=== PATIENT | male | born 1985 | race Caucasian/White ===

== ENCOUNTER 2020-04-23 15:54 | Emergency (ER) | payer BC, OTHER ==
[2020-04-23 16:06] VITALS: TEMP 98.4
--- NOTE | 2020-04-23 17:02 | ED ---
General Adult HPI - General Chief complaint: Upper Respiratory Infection Stated complaint: +Covid, Shaking Time Seen by Provider: 04/23/20 16:08 Source: patient, RN notes reviewed Mode of arrival: wheelchair Limitations: no limitations - History of Present Illness Initial comments: 34-year-old male presents emergency Department chief complaint of shortness of breath. Patient states he tested positive for covid 19 one week ago. He states he started symptoms a few days prior to this. Patient states that he has been having on and off fever states he was shaking with this fever earlier today which has resolved. Patient also states is very anxious because he received a phone call from the hospital stating that his father has been placed on a venti lator and is in ICU. Patient denies any abdominal plain no GI symptoms no significant chest pain or shortness of breath. - Related Data Home Medications Medication Instructions Recorded Confirmed Albuterol Inhaler (Mhu) [Ventolin 1 - 2 puff INHALATION Q6HR PRN 06/11/14 11/20/15 Inhaler] Previous Rx's Medication Instructions Recorded Azithromycin [Zithromax Z-pack (6 0 mg PO DIRECTED #6 tab 11/20/15 tabs)] Fluticasone Propionate [Flonase 1 - 2 spray EA NOSTRIL DAILY 5 11/20/15 Allergy Relief] Days ml Allergies Allergy/AdvReac Type Severity Reaction Status Date / Time amoxicillin Allergy Unknown Verified 04/23/20 16:06 Penicillins Allergy Rash/Hives Verified 04/23/20 16:06 diphenhydramine HCl AdvReac Swelling Verified 04/23/20 16:06 [From Benadryl] Review of Systems ROS Statement: Those systems with pertinent positive or pertinent negative responses have been documented in the HPI. ROS Other: All systems not noted in ROS Statement are negative. Past Medical History Past Medical History: No Reported History Additional Past Medical History / Comment(s): cellulitis History of Any Multi-Drug Resistant Organisms: None Reported Past Surgical History: Appendectomy Additional Past Surgical History / Comment(s): vericose vein stripping Past Psychological History: No Psychological Hx Reported Smoking Status: Never smoker Past Alcohol Use History: None Reported Past Drug Use History: None Reported General Exam Limitations: no limitations General appearance: alert, in no apparent distress Head exam: Present: atraumatic, normocephalic, normal inspection Eye exam: Present: normal appearance, PERRL, EOMI. Absent: scleral icterus, conjunctival injection, periorbital swelling ENT exam: Present: normal exam, normal oropharynx, mucous membranes moist Neck exam: Present: normal inspection, full ROM. Absent: tenderness, meningismus, lymphadenopathy Respiratory exam: Present: normal lung sounds bilaterally. Absent: respiratory distress, wheezes, rales, rhonchi, stridor Cardiovascular Exam: Present: regular rate, normal rhythm, normal heart sounds. Absent: systolic murmur, diastolic murmur, rubs, gallop, clicks Neurological exam: Present: alert, oriented X3, CN II-XII intact Skin exam: Present: warm, dry, intact, normal color. Absent: rash Course Vital Signs 04/23/20 04/23/20 16:03 16:47 Temperature 98.4 F Pulse Rate 89 Respiratory 16 20 Rate Blood Pressure 133/76 O2 Sat by Pulse 99 Oximetry Medical Decision Making - Medical Decision Making X-ray does not show any significant changes. Patient vitals reviewed there is no hypoxia. Patient is no signs respiratory distress we discharged in stable condition return parameters were discussed. Disposition Clinical Impression: COVID-19 Disposition: HOME SELF-CARE Condition: Stable Instructions (If sedation given, give patient instructions): Upper Respiratory Infection (ED) Additional Instructions: Please return to the Emergency Department if symptoms worsen or any other concerns. Is patient prescribed a controlled substance at d/c from ED?: No Referrals: None,Stated [Primary Care Provider] - 1-2 days Time of Disposition: 17:04
--- NOTE | 2020-04-23 17:16 | XR ---
EXAMINATION TYPE: XR chest 2V DATE OF EXAM: 04/23/2020 COMPARISON: NONE HISTORY: Cough. TECHNIQUE: Frontal and lateral views of the chest are obtained. FINDINGS: There is no focal air space opacity, pleural effusion, or pneumothorax seen. The cardiac silhouette size is within normal limits. The osseous structures are intact. IMPRESSION: No acute cardiopulmonary process.
[2020-04-23 17:37] VITALS: BP 117/97; PULSE 92; RESP 18
== END 2020-04-23 17:36 | disposition home or self-care (01) ==
LOC: EC 15:54
DX: U07.1 COVID-19 (principal); Z88.0 Allergy status to penicillin; Z88.8 Allergy status to other drugs, medicaments and biological substances; Z90.49 Acquired absence of other specified parts of digestive tract
CPT/HCPCS: 71046; 99284

== ENCOUNTER 2020-05-10 16:44 | Emergency (ER) | payer BC, OTHER ==
[2020-05-10 16:53] VITALS: BP 136/81; PULSE 87; RESP 16; TEMP 98.9
--- NOTE | 2020-05-10 17:03 | ED ---
Fever HPI - General Chief Complaint: Fever Stated Complaint: fever,headache Time Seen by Provider: 05/10/20 16:59 Source: patient Mode of arrival: ambulatory Limitations: no limitations - History of Present Illness Initial Comments: 34-year-old male presents emergency Department with a chief complaint of fever. Patient states that he was diagnosed with Covid over one month ago and already went through 14 days of quarantine. Patient states today he went to the hospital to visit his father and at the front door, he they obtain a temperature of 102 Fahrenheit. Patient states he wasn't aware that he had a fever. He denied any other complaints. States he went home right after the measured temperature of 99. States he also developed a headache due to the stress that he is currently undergoing because of is sick father. Patient states he decided to come to emergency department to be evaluated for the fever. He does not have any other complaints. - Related Data Home Medications Medication Instructions Recorded Confirmed Albuterol Inhaler (Mhu) [Ventolin 1 - 2 puff INHALATION Q6HR PRN 06/11/14 11/20/15 Inhaler] Previous Rx's Medication Instructions Recorded Azithromycin [Zithromax Z-pack (6 0 mg PO DIRECTED #6 tab 11/20/15 tabs)] Fluticasone Propionate [Flonase 1 - 2 spray EA NOSTRIL DAILY 5 11/20/15 Allergy Relief] Days ml Allergies Allergy/AdvReac Type Severity Reaction Status Date / Time amoxicillin Allergy Unknown Verified 05/10/20 16:53 Penicillins Allergy Rash/Hives Verified 05/10/20 16:53 diphenhydramine HCl AdvReac Swelling Verified 05/10/20 16:53 [From Benadryl] Review of Systems ROS Statement: Those systems with pertinent positive or pertinent negative responses have been documented in the HPI. ROS Other: All systems not noted in ROS Statement are negative. Past Medical History Past Medical History: No Reported History Additional Past Medical History / Comment(s): cellulitis History of Any Multi-Drug Resistant Organisms: None Reported Past Surgical History: Appendectomy Additional Past Surgical History / Comment(s): vericose vein stripping Past Psychological History: No Psychological Hx Reported Smoking Status: Never smoker Past Alcohol Use History: None Reported Past Drug Use History: None Reported General Exam Limitations: no limitations General appearance: alert, in no apparent distress, in distress Head exam: Present: atraumatic, normocephalic, normal inspection Eye exam: Present: normal appearance, PERRL, EOMI Pupils: Present: normal accommodation ENT exam: Present: normal exam, normal oropharynx, mucous membranes moist, TM's normal bilaterally, normal external ear exam Neck exam: Present: normal inspection, full ROM. Absent: tenderness Respiratory exam: Present: normal lung sounds bilaterally. Absent: respiratory distress Cardiovascular Exam: Present: regular rate, normal rhythm, normal heart sounds Extremities exam: Present: normal inspection, full ROM Back exam: Present: normal inspection, full ROM Neurological exam: Present: alert, oriented X3, normal gait Psychiatric exam: Present: normal affect, normal mood Skin exam: Present: warm, dry, intact, normal color Course Vital Signs 05/10/20 16:49 Temperature 98.9 F Pulse Rate 87 Respiratory 16 Rate Blood Pressure 136/81 O2 Sat by Pulse 99 Oximetry Medical Decision Making - Medical Decision Making 34-year-old male presents emergency Department with chief complaint of fever. Physical examination is unremarkable. Vital signs are stable. Patient was given Tylenol for the headache.gradual onset headache not the worst headache of his life. Return parameters discussed the patient was understanding and agreeable. Case discussed with Dr. Hernandez. Disposition Clinical Impression: Headache Disposition: HOME SELF-CARE Condition: Stable Instructions (If sedation given, give patient instructions): Acute Headache (DC) Additional Instructions: Take Tylenol or Motrin for pain relief. Follow up with the primary care physician. Return to emergency department if symptoms worsen. Is patient prescribed a controlled substance at d/c from ED?: No Referrals: None,Stated [Primary Care Provider] - 1-2 days Time of Disposition: 17:18
[2020-05-10] MEDS ORDERED: ACETAMINOPHEN TAB 500 MG TAB PO STA (17:16)
== END 2020-05-10 17:48 | disposition home or self-care (01) ==
LOC: EC 16:44
DX: R51.9 Headache, unspecified (principal); R50.9 Fever, unspecified; Z88.0 Allergy status to penicillin; Z88.8 Allergy status to other drugs, medicaments and biological substances
CPT/HCPCS: 99283

== ENCOUNTER 2020-10-01 21:07 | Emergency (ER) | payer OTHER ==
[2020-10-01 21:13] VITALS: TEMP 97.7
[2020-10-01] MEDS ORDERED: SODIUM CHLORIDE 0.9% 1,000 ML IV STA (21:14)
[2020-10-01 21:55] LABS: Basophils # (A) 0.1 k/uL (0-0.2); Basophils % (A) 1 %; Eosinophils # (A) 0.2 k/uL (0-0.7); Eosinophils % (A) 4 %; HCT 44.1 % (39.0-53.0); HGB 15.3 gm/dL (13.0-17.5); Lymphocytes # (A) 1.2 k/uL (1.0-4.8); Lymphocytes % (A) 20 %; MCH 29.9 pg (25.0-35.0); MCHC 34.8 g/dL (31.0-37.0); Mean Platelet Volume 7.2; Monocytes # (A) 0.5 k/uL (0-1.0); Monocytes % (A) 8 %; Neutrophils # (A) 3.8 k/uL (1.3-7.7); Neutrophils % (A) 66 %; Platelet Count 205 k/uL (150-450); RBC 5.12 m/uL (4.30-5.90); RDW 12.3 % (11.5-15.5); WBC 5.8 k/uL (3.8-10.6)
[2020-10-01 22:02] LABS: Partial Thromboplastin Time 23.2 sec (22.0-30.0); Prothrombin Time 10.3 sec (9.0-12.0)
--- NOTE | 2020-10-01 22:11 | ED ---
Chest Pain HPI - General Chief Complaint: Chest Pain Stated Complaint: elevated BP Time Seen by Provider: 10/01/20 21:14 Source: patient, RN notes reviewed, old records reviewed Mode of arrival: wheelchair Limitations: no limitations - History of Present Illness Initial Comments: This is a 35-year-old male with no specific medical history patient states that today he just felt a little bit more fatigued does admit to severe anxiety or increased anxiety secondary to starting a new job tomorrow his normal daily tasks. States that he was just maybe mildly increased short of breath but no significant swelling and then developed chest pains afternoon took his blood pressure was elevated slightly shower today blood pressure again was again elevated and decided to come the ER for evaluation. On arrival in the ER patient has no chest pain shortness of breath otherwise feels well does admit to mild anxiety MD Complaint: chest pain -: days(s) Onset: during rest, during exertion Pain Location: substernal Pain Radiation: none Severity: mild Severity scale (1-10): 2 Quality: aching, heaviness Consistency: constant Improves With: nothing Worsens With: nothing Context: recent illness Anginal Symptoms: nausea, dyspnea Other Symptoms: palpitations Treatments Prior to Arrival: none - Related Data Home Medications Medication Instructions Recorded Confirmed Acetaminophen Tab [Tylenol Tab] 500 mg PO Q6H PRN 10/01/20 10/01/20 Albuterol Sulfate [Ventolin HFA] 1 - 2 puff INHALATION RT-Q4H PRN 10/01/20 10/01/20 Ibuprofen [Motrin Ib] 800 mg PO Q8H PRN 10/01/20 10/01/20 Allergies Allergy/AdvReac Type Severity Reaction Status Date / Time amoxicillin Allergy Unknown Verified 10/01/20 21:58 Penicillins Allergy Rash/Hives Verified 10/01/20 21:58 diphenhydramine HCl AdvReac Swelling Verified 10/01/20 21:58 [From Benadryl] Review of Systems ROS Statement: Those systems with pertinent positive or pertinent negative responses have been documented in the HPI. ROS Other: All systems not noted in ROS Statement are negative. EKG Findings - EKG Comments: EKG Findings:: EKG shows sinus rhythm 86 OH 160 QRS 96 QTc 445 Past Medical History Past Medical History: Asthma Additional Past Medical History / Comment(s): cellulitis History of Any Multi-Drug Resistant Organisms: None Reported Past Surgical History: Appendectomy Additional Past Surgical History / Comment(s): vericose vein stripping Past Psychological History: No Psychological Hx Reported Smoking Status: Never smoker Past Alcohol Use History: None Reported Past Drug Use History: None Reported General Exam Limitations: no limitations General appearance: alert, in no apparent distress, anxious, obese Head exam: Present: atraumatic, normocephalic, normal inspection Eye exam: Present: normal appearance, PERRL, EOMI. Absent: scleral icterus, conjunctival injection, periorbital swelling ENT exam: Present: normal exam, mucous membranes moist Neck exam: Present: normal inspection. Absent: tenderness, meningismus, lymphadenopathy Respiratory exam: Present: normal lung sounds bilaterally. Absent: respiratory distress, wheezes, rales, rhonchi, stridor Cardiovascular Exam: Present: regular rate, normal rhythm, normal heart sounds. Absent: systolic murmur, diastolic murmur, rubs, gallop, clicks GI/Abdominal exam: Present: soft, normal bowel sounds. Absent: distended, tenderness, guarding, rebound, rigid Extremities exam: Present: normal inspection, full ROM, normal capillary refill. Absent: tenderness, pedal edema, joint swelling, calf tenderness Back exam: Present: normal inspection Neurological exam: Present: alert, oriented X3, CN II-XII intact Psychiatric exam: Present: normal affect, normal mood Skin exam: Present: warm, dry, intact, normal color. Absent: rash Course Vital Signs 10/01/20 10/01/20 21:09 21:19 Temperature 97.7 F Pulse Rate 91 87 Respiratory 20 18 Rate Blood Pressure 148/92 136/88 O2 Sat by Pulse 99 97 Oximetry - Reevaluation(s) Reevaluation #1: 10/01/20 22:38 Medical record is reviewed Reevaluation #2: 10/01/20 22:38 Patient remains a symptomatically here in the ER Reevaluation #3: 10/01/20 22:38 Patient informed results and questions answered Okay for discharge Chest Pain MDM - MDM 35 female to the ER for evaluation patient presents today for evaluation of chest pain and heaviness not feeling well main concern was elevated blood pressure at home. No history of blood blood pressure, did uses his blood pressure cuff liters was feeling a little bit off, blood pressure is normal here in the ER, patient feels without complaint can be discharged Disposition Clinical Impression: Atypical chest pain, Chest pain, Anxiety Disposition: HOME SELF-CARE Condition: Good Instructions (If sedation given, give patient instructions): Chest Pain (ED) Is patient prescribed a controlled substance at d/c from ED?: No Referrals: None,Stated [Primary Care Provider] - 1-2 days
--- NOTE | 2020-10-01 22:14 | XR ---
EXAMINATION TYPE: XR chest 2V DATE OF EXAM: 10/01/2020 COMPARISON: 04/23/2020 HISTORY: Chest pain TECHNIQUE: FINDINGS: Heart and mediastinum are normal. Lungs are clear. Diaphragm is normal. Bony thorax is inta ct. IMPRESSION: Normal chest. No change.
[2020-10-01 22:17] LABS: ALT 28 U/L (4-49); AST 35 U/L (17-59); African American GFR (CKD) >90 (>60 ml/min/1.73 sqM); Albumin 4.1 g/dL (3.5-5.0); Alkaline Phosphatase 74 U/L (38-126); Anion Gap 9 mmol/L; Blood Urea Nitrogen 28 mg/dL (9-20); Calcium 10.2 mg/dL (8.4-10.2); Carbon Dioxide 25 mmol/L (22-30); Chloride 104 mmol/L (98-107); Creatine Kinase 130 U/L (55-170); Glucose 101 mg/dL (74-99); Lipase 80 U/L (23-300); Non-African American GFR(CKD) 85 (>60 ml/min/1.73 sqM); Potassium 3.9 mmol/L (3.5-5.1); Sodium 138 mmol/L (137-145); Total Bilirubin 0.6 mg/dL (0.2-1.3); Total Protein 6.4 g/dL (6.3-8.2)
[2020-10-01 22:27] VITALS: RESP 18
[2020-10-01 23:01] VITALS: BP 131/96; PULSE 88
== END 2020-10-01 22:55 | disposition home or self-care (01) ==
LOC: EC 21:07
DX: F41.9 Anxiety disorder, unspecified (principal); R07.89 Other chest pain; J45.909 Unspecified asthma, uncomplicated; Z79.1 Long term (current) use of non-steroidal anti-inflammatories (NSAID); Z79.51 Long term (current) use of inhaled steroids; Z79.899 Other long term (current) drug therapy; Z88.0 Allergy status to penicillin; Z88.8 Allergy status to other drugs, medicaments and biological substances
CPT/HCPCS: 36415; 71046; 80053; 82550; 83690; 83735; 83880; 84484; 85025; 85610; 85730; 93005; 99285

== ENCOUNTER 2021-04-13 19:15 | Emergency (ER) | payer OTHER ==
[2021-04-13 19:58] VITALS: TEMP 97.6
[2021-04-13] MEDS ORDERED: SODIUM CHLORIDE 0.9% 1,000 ML IV ONE (20:55)
--- NOTE | 2021-04-13 21:15 | XR ---
EXAMINATION TYPE: XR chest 2V DATE OF EXAM: 04/13/2021 COMPARISON: NONE HISTORY: Dizziness TECHNIQUE: 2 views FINDINGS: Heart and mediastinum are normal. Lungs are clear. Diaphragm is normal. Bony thorax is inta ct. IMPRESSION: Normal chest.
[2021-04-13 21:20] LABS: HCT 49.3 % (39.0-53.0); HGB 16.5 gm/dL (13.0-17.5); MCH 30.2 pg (25.0-35.0); MCHC 33.4 g/dL (31.0-37.0); MCV 90.5 fL (80.0-100.0); RBC 5.45 m/uL (4.30-5.90); WBC 6.9 k/uL (3.8-10.6)
[2021-04-13 21:21] LABS: Basophils % (A) 1 %; Eosinophils # (A) 0.1 k/uL (0-0.7); Eosinophils % (A) 2 %; Lymphocytes # (A) 0.9 k/uL (1.0-4.8); Lymphocytes % (A) 14 %; Mean Platelet Volume 7.8; Monocytes # (A) 0.5 k/uL (0-1.0); Monocytes % (A) 7 %; Neutrophils # (A) 5.1 k/uL (1.3-7.7); Neutrophils % (A) 75 %; Platelet Count 235 k/uL (150-450); RDW 12.6 % (11.5-15.5)
[2021-04-13 21:24] LABS: INR 0.9 (<1.2); Partial Thromboplastin Time 23.6 sec (22.0-30.0); Prothrombin Time 10.2 sec (9.0-12.0)
[2021-04-13 21:29] LABS: Appearance,Urine Clear (Clear); Bilirubin,Urine Negative (Negative); Blood,Urine Negative (Negative); Color,Urine Light Yellow; Glucose,Urine (UA) Negative (Negative); Ketones,Urine Negative (Negative); Leukocyte Esterase,Urine Negative (Negative); Nitrite,Urine Negative (Negative); PH, Urine 5.5 (5.0-8.0); Protein,Urine Negative (Negative); Specific Gravity,Urine 1.011 (1.001-1.035); Urobilinogen,Urine <2.0 mg/dL (<2.0)
[2021-04-13 21:36] LABS: Albumin 4.3 g/dL (3.5-5.0); Calcium 9.6 mg/dL (8.4-10.2); Potassium 4.3 mmol/L (3.5-5.1); Total Bilirubin 0.6 mg/dL (0.2-1.3); Total Protein 6.7 g/dL (6.3-8.2)
[2021-04-13 21:43] LABS: Amphetamine Screen,Urine Not Detected (NotDetected); Barbiturate Screen,Urine Not Detected (NotDetected); Benzodiazepines Screen,Urine Not Detected (NotDetected); Cocaine Screen,Urine Not Detected (NotDetected); Methadone Screen, Urine Not Detected (NotDetected); Opiate Screen,Urine Not Detected (NotDetected); Oxycodone Screen, Urine Not Detected (NotDetected); Phencyclidine Screen,Urine Not Detected (NotDetected); Tricyclic Antidepressant,Urine Not Detected (NotDetected); Urn Cannabinoid Scrn Not Detected (NotDetected)
--- NOTE | 2021-04-13 22:19 | CT ---
EXAMINATION TYPE: CT brain wo con DATE OF EXAM: 04/13/2021 COMPARISON: None HISTORY: dizziness CT DLP: 1169.4 mGycm Automated exposure control for dose reduction was used. Images obtained of the brain without contrast. Ventricles and sulci appear normal. There is no mass effect or midline shift. There is no sign of int racranial hemorrhage. Calvarium is intact. There is normal aeration of the mastoid sinuses. IMPRESSION: Negative unenhanced head CT scan.
--- NOTE | 2021-04-13 22:39 | ED ---
General Adult HPI - General Chief complaint: Neuro Symptoms/Deficit Stated complaint: passing out, dizziness Time Seen by Provider: 04/13/21 20:32 Source: patient, RN notes reviewed Mode of arrival: ambulatory - History of Present Illness Initial comments: Patient is a 35-year-old male that presents to the emergency department complaining of numbness and tingling in her bilateral upper extremities. Patient notes that he ordered pizza for his work to the drink of an energy drink became a bit lightheaded. He notes he told his boss to didn't feel there was no noted the ER. Patient stated some he wanted a spiked his drink. Patient was otherwise well-appearing in no apparent distress. He denied any other issues or complaints. He does note he has a long history of upper and lower back injuries which caused radicular symptoms. Patient denied any chest pain shortness of breath headache nausea vomiting diarrhea constipation fever fatigue chills. - Related Data Home Medications Medication Instructions Recorded Confirmed Acetaminophen Tab [Tylenol Tab] 500 mg PO Q6H PRN 10/01/20 04/13/21 Albuterol Sulfate [Ventolin HFA] 1 - 2 puff INHALATION RT-Q4H PRN 10/01/20 04/13/21 Ibuprofen [Motrin Ib] 800 mg PO Q8H PRN 10/01/20 04/13/21 Allergies Allergy/AdvReac Type Severity Reaction Status Date / Time amoxicillin Allergy Unknown Verified 04/13/21 21:37 Penicillins Allergy Rash/Hives Verified 04/13/21 21:37 diphenhydramine HCl AdvReac Swelling Verified 04/13/21 21:37 [From Benadryl] Review of Systems ROS Statement: Those systems with pertinent positive or pertinent negative responses have been documented in the HPI. ROS Other: All systems not noted in ROS Statement are negative. Past Medical History Past Medical History: Asthma Additional Past Medical History / Comment(s): cellulitis History of Any Multi-Drug Resistant Organisms: None Reported Past Surgical History: Appendectomy Additional Past Surgical History / Comment(s): vericose vein stripping Past Psychological History: No Psychological Hx Reported Smoking Status: Never smoker Past Alcohol Use History: Occasional Past Drug Use History: Marijuana General Exam General appearance: alert, in no apparent distress Head exam: Present: atraumatic, normocephalic, normal inspection Eye exam: Present: normal appearance, PERRL, EOMI. Absent: scleral icterus, conjunctival injection, periorbital swelling ENT exam: Present: normal exam, mucous membranes moist Neck exam: Present: normal inspection Respiratory exam: Present: normal lung sounds bilaterally. Absent: respiratory distress, wheezes, rales, rhonchi, stridor Cardiovascular Exam: Present: regular rate, normal rhythm, normal heart sounds. Absent: systolic murmur, diastolic murmur, rubs, gallop, clicks Extremities exam: Present: normal inspection, full ROM, normal capillary refill. Absent: tenderness, pedal edema, joint swelling, calf tenderness Neurological exam: Present: alert, oriented X3 Skin exam: Present: warm, dry, intact, normal color. Absent: rash Course Vital Signs 04/13/21 19:53 Temperature 97.6 F Pulse Rate 92 Respiratory 20 Rate Blood Pressure 150/97 O2 Sat by Pulse 99 Oximetry EKG Findings - EKG Comments: EKG Findings:: Ventricular rate 79 bpm, OR interval 168 ms, QRS duration 96 ms, QTC 438 ms, normal sinus rhythm, possible left atrial enlargement, possible anterior infarct age undetermined abnormal ECG. Medical Decision Making - Medical Decision Making 35-year-old male complaining of lightheadedness and dizziness. Labs, EKG, chest x-ray, CT of the brain, 1 L normal saline ordered. Labs are grossly unremarkable. Imaging is negative for any acute process. Patient informed of the results of imaging and labs it is agreeable to discharge home with follow-up to primary care. Case discussed with Dr. Gunter - Lab Data Result diagrams: 04/13/21 21:02 04/13/21 21:02 Lab Results 04/13/21 04/13/21 04/13/21 Range/Units 21:02 21:02 21:02 WBC 6.9 (3.8-10.6) k/uL RBC 5.45 (4.30-5.90) m/uL Hgb 16.5 (13.0-17.5) gm/dL Hct 49.3 (39.0-53.0) % MCV 90.5 (80.0-100.0) fL MCH 30.2 (25.0-35.0) pg MCHC 33.4 (31.0-37.0) g/dL RDW 12.6 (11.5-15.5) % Plt Count 235 (150-450) k/uL MPV 7.8 Neutrophils % 75 % Lymphocytes % 14 % Monocytes % 7 % Eosinophils % 2 % Basophils % 1 % Neutrophils # 5.1 (1.3-7.7) k/uL Lymphocytes # 0.9 L (1.0-4.8) k/uL Monocytes # 0.5 (0-1.0) k/uL Eosinophils # 0.1 (0-0.7) k/uL Basophils # 0.0 (0-0.2) k/uL PT 10.2 (9.0-12.0) sec INR 0.9 (<1.2) APTT 23.6 (22.0-30.0) sec Sodium (137-145) mmol/L Potassium (3.5-5.1) mmol/L Chloride (98-107) mmol/L Carbon Dioxide (22-30) mmol/L Anion Gap mmol/L BUN (9-20) mg/dL Creatinine (0.66-1.25) mg/dL Est GFR (CKD-EPI)AfAm (>60 ml/min/1.73 sqM) Est GFR (CKD-EPI)NonAf (>60 ml/min/1.73 sqM) Glucose (74-99) mg/dL Calcium (8.4-10.2) mg/dL Total Bilirubin (0.2-1.3) mg/dL AST (17-59) U/L ALT (4-49) U/L Alkaline Phosphatase (38-126) U/L Troponin I (0.000-0.034) ng/mL Total Protein (6.3-8.2) g/dL Albumin (3.5-5.0) g/dL Urine Color Light Yellow Urine Appearance Clear (Clear) Urine pH 5.5 (5.0-8.0) Ur Specific Elmo 1.011 (1.001-1.035) Urine Protein Negative (Negative) Urine Glucose (UA) Negative (Negative) Urine Ketones Negative (Negative) Urine Blood Negative (Negative) Urine Nitrite Negative (Negative) Urine Bilirubin Negative (Negative) Urine Urobilinogen <2.0 (<2.0) mg/dL Ur Leukocyte Esterase Negative (Negative) Urine Opiates Screen Not Detected (NotDetected) Ur Oxycodone Screen Not Detected (NotDetected) Urine Methadone Screen Not Detected (NotDetected) Ur Propoxyphene Screen Not Detected (NotDetected) Ur Barbiturates Screen Not Detected (NotDetected) U Tricyclic Antidepress Not Detected (NotDetected) Ur Phencyclidine Scrn Not Detected (NotDetected) Ur Amphetamines Screen Not Detected (NotDetected) U Methamphetamines Scrn Not Detected (NotDetected) U Benzodiazepines Scrn Not Detected (NotDetected) Urine Cocaine Screen Not Detected (NotDetected) U Marijuana (THC) Screen Not Detected (NotDetected) Coronavirus (PCR) (Not Detectd) 04/13/21 04/13/21 04/13/21 Range/Units 21:02 21:02 21:07 WBC (3.8-10.6) k/uL RBC (4.30-5.90) m/uL Hgb (13.0-17.5) gm/dL Hct (39.0-53.0) % MCV (80.0-100.0) fL MCH (25.0-35.0) pg MCHC (31.0-37.0) g/dL RDW (11.5-15.5) % Plt Count (150-450) k/uL MPV Neutrophils % % Lymphocytes % % Monocytes % % Eosinophils % % Basophils % % Neutrophils # (1.3-7.7) k/uL Lymphocytes # (1.0-4.8) k/uL Monocytes # (0-1.0) k/uL Eosinophils # (0-0.7) k/uL Basophils # (0-0.2) k/uL PT (9.0-12.0) sec INR (<1.2) APTT (22.0-30.0) sec Sodium 137 (137-145) mmol/L Potassium 4.3 (3.5-5.1) mmol/L Chloride 103 (98-107) mmol/L Carbon Dioxide 27 (22-30) mmol/L Anion Gap 7 mmol/L BUN 29 H (9-20) mg/dL Creatinine 1.31 H (0.66-1.25) mg/dL Est GFR (CKD-EPI)AfAm 81 (>60 ml/min/1.73 sqM) Est GFR (CKD-EPI)NonAf 70 (>60 ml/min/1.73 sqM) Glucose 99 (74-99) mg/dL Calcium 9.6 (8.4-10.2) mg/dL Total Bilirubin 0.6 (0.2-1.3) mg/dL AST 28 (17-59) U/L ALT 22 (4-49) U/L Alkaline Phosphatase 87 (38-126) U/L Troponin I <0.012 (0.000-0.034) ng/mL Total Protein 6.7 (6.3-8.2) g/dL Albumin 4.3 (3.5-5.0) g/dL Urine Color Urine Appearance (Clear) Urine pH (5.0-8.0) Ur Specific Elmo (1.001-1.035) Urine Protein (Negative) Urine Glucose (UA) (Negative) Urine Ketones (Negative) Urine Blood (Negative) Urine Nitrite (Negative) Urine Bilirubin (Negative) Urine Urobilinogen (<2.0) mg/dL Ur Leukocyte Esterase (Negative) Urine Opiates Screen (NotDetected) Ur Oxycodone Screen (NotDetected) Urine Methadone Screen (NotDetected) Ur Propoxyphene Screen (NotDetected) Ur Barbiturates Screen (NotDetected) U Tricyclic Antidepress (NotDetected) Ur Phencyclidine Scrn (NotDetected) Ur Amphetamines Screen (NotDetected) U Methamphetamines Scrn (NotDetected) U Benzodiazepines Scrn (NotDetected) Urine Cocaine Screen (NotDetected) U Marijuana (THC) Screen (NotDetected) Coronavirus (PCR) Not Detected (Not Detectd) - EKG Data -: EKG Interpreted by Me EKG shows normal: sinus rhythm Rate: normal EKG Comments: Ventricular rate 79 bpm, OR interval 168 ms, QRS duration 96 ms, QTC 438 ms, normal sinus rhythm, possible left atrial enlargement, possible anterior infarct age undetermined abnormal ECG. - Radiology Data Radiology results: report reviewed, image reviewed Chest x-ray: Normal chest. CT of the brain: Negative unenhanced CT of the brain. Disposition Clinical Impression: Dizziness, Dehydration Disposition: HOME SELF-CARE Condition: Stable Instructions (If sedation given, give patient instructions): Dehydration (ED) Additional Instructions: Please return to the Emergency Department if symptoms worsen or any other concerns. Follow-up with primary care 1-2 days. Increase oral fluids. Is patient prescribed a controlled substance at d/c from ED?: No Referrals: None,Stated [Primary Care Provider] - 1-2 days Time of Disposition: 22:40
[2021-04-13 23:02] VITALS: BP 142/86; PULSE 87; RESP 18
== END 2021-04-13 23:02 | disposition home or self-care (01) ==
LOC: EC 19:15
DX: R42 Dizziness and giddiness (principal); E86.0 Dehydration; J45.909 Unspecified asthma, uncomplicated; F12.90 Cannabis use, unspecified, uncomplicated; Z88.0 Allergy status to penicillin; Z90.49 Acquired absence of other specified parts of digestive tract; Z20.822 Contact with and (suspected) exposure to COVID-19
CPT/HCPCS: 36415; 70450; 71046; 80053; 80306; 81003; 84484; 85025; 85610; 85730; 87635; 93005; 96360; 99284

== ENCOUNTER 2021-07-08 08:06 | Emergency (ER) | payer OTHER ==
--- NOTE | 2021-07-08 08:26 | ED ---
URI HPI - General Chief Complaint: Upper Respiratory Infection Stated Complaint: Abscess tooth/Cough/Congestion Time Seen by Provider: 07/08/21 08:15 Source: patient, RN notes reviewed Mode of arrival: ambulatory Limitations: no limitations - History of Present Illness Initial Comments: This a 36-year-old male presents emergency Department with chief complaint of dental pain, cough and cold like symptoms. Patient states that started having pain last Friday follow-up with dentist placed on clindamycin as he has penicillin ALLERGY. He states it's been taken it but knows last day or so he has had increasing cough and nasal congestion. Patient states that he was possibly exposed COVID-19 at work. He reports no fevers. He does admit that he has underlying asthma but denies any significant wheezing or any shortness breath this time. Patient had mild GI upset from his antibiotics denies any significant diarrhea no recent fever - Related Data Home Medications Medication Instructions Recorded Confirmed Acetaminophen Tab [Tylenol Tab] 500 mg PO Q6H PRN 10/01/20 04/13/21 Albuterol Sulfate [Ventolin HFA] 1 - 2 puff INHALATION RT-Q4H PRN 10/01/20 04/13/21 Ibuprofen [Motrin Ib] 800 mg PO Q8H PRN 10/01/20 04/13/21 Allergies Allergy/AdvReac Type Severity Reaction Status Date / Time amoxicillin Allergy Unknown Verified 07/08/21 08:14 Penicillins Allergy Rash/Hives Verified 07/08/21 08:14 diphenhydramine HCl AdvReac Swelling Verified 07/08/21 08:14 [From Benadryl] Review of Systems ROS Statement: Those systems with pertinent positive or pertinent negative responses have been documented in the HPI. ROS Other: All systems not noted in ROS Statement are negative. Past Medical History Past Medical History: Asthma Additional Past Medical History / Comment(s): cellulitis History of Any Multi-Drug Resistant Organisms: None Reported Past Surgical History: Appendectomy Additional Past Surgical History / Comment(s): vericose vein stripping Past Psychological History: No Psychological Hx Reported Smoking Status: Never smoker Past Alcohol Use History: Occasional Past Drug Use History: Marijuana General Exam Limitations: no limitations General appearance: alert, in no apparent distress Head exam: Present: atraumatic, normocephalic, normal inspection Eye exam: Present: normal appearance, PERRL, EOMI. Absent: scleral icterus, conjunctival injection, periorbital swelling ENT exam: Present: mucous membranes moist. Absent: normal oropharynx (No obvious abscess, minimal swelling left cheek, mild tenderness) Neck exam: Present: normal inspection, full ROM. Absent: tenderness, meningismus, lymphadenopathy Respiratory exam: Present: normal lung sounds bilaterally. Absent: respiratory distress, wheezes, rales, rhonchi, stridor Cardiovascular Exam: Present: regular rate, normal rhythm, normal heart sounds. Absent: systolic murmur, diastolic murmur, rubs, gallop, clicks Neurological exam: Present: alert Skin exam: Present: warm, dry, intact, normal color. Absent: rash Course Vital Signs 07/08/21 08:07 Temperature 97.8 F Pulse Rate 87 Respiratory 20 Rate Blood Pressure 133/71 O2 Sat by Pulse 98 Oximetry Medical Decision Making - Medical Decision Making Patient is covid 19 positive. Patient will be discharged in stable condition return parameters were discussed. - Lab Data Lab Results 07/08/21 Range/Units 08:14 Coronavirus (PCR) Detected A (Not Detectd) Disposition Clinical Impression: COVID-19 Disposition: HOME SELF-CARE Condition: Stable Instructions (If sedation given, give patient instructions): COVID-19 (Coronavirus Disease 2019) (ED) Additional Instructions: Please return to the Emergency Department if symptoms worsen or any other concerns. Is patient prescribed a controlled substance at d/c from ED?: No Referrals: None,Stated [Primary Care Provider] - 1-2 days Time of Disposition: 08:44
--- NOTE | 2021-07-08 08:42 | XR ---
EXAMINATION TYPE: XR chest 2V DATE OF EXAM: 07/08/2021 COMPARISON: Chest x-ray April 13, 2021. HISTORY: Cough. TECHNIQUE: Frontal and lateral views of the chest are obtained. FINDINGS: There is no new suspicious focal air space opacity, pleural effusion, or pneumothorax seen . The cardiac silhouette size remains within normal limits. The osseous structures are intact. IMPRESSION: No acute pulmonary process. No significant change from prior.
[2021-07-08 09:19] VITALS: BP 131/68; PULSE 82; RESP 20; TEMP 98
== END 2021-07-08 09:15 | disposition home or self-care (01) ==
LOC: EC 08:06
DX: U07.1 COVID-19 (principal); J45.909 Unspecified asthma, uncomplicated; F12.90 Cannabis use, unspecified, uncomplicated; Z88.0 Allergy status to penicillin; Z90.49 Acquired absence of other specified parts of digestive tract
CPT/HCPCS: 71046; 87635; 99283

== ENCOUNTER 2021-07-08 20:38 | Emergency (ER) | payer OTHER ==
[2021-07-08] MEDS ORDERED: KETOROLAC 15 MG/ML 1 ML VIAL IVP STA (21:40)
[2021-07-08] MEDS ORDERED: SODIUM CHLORIDE 0.9% 1,000 ML IV STA (21:40)
[2021-07-08] MEDS ORDERED: ACETAMINOPHEN TAB 500 MG TAB PO STA (21:40)
[2021-07-08] MEDS ORDERED: DEXAMETHASONE SOD PHOSPHATE 10 MG/ML 1 ML VIAL IVP STA (21:40)
--- NOTE | 2021-07-08 22:05 | XR ---
EXAMINATION TYPE: XR chest 1V portable DATE OF EXAM: 07/08/2021 9:59 PM COMPARISON:Multiple radiographs, with the most recent on TECHNIQUE: XR chest 1V portable Frontal view of the chest. CLINICAL INDICATION:Male, 36 years old with history of Suspected COVID-19 pneumonia; FINDINGS: Lungs/Pleura: There is no evidence of pleural effusion, focal consolidation, or pneumothorax. Pulmonary vascularity: Unremarkable. Heart/mediastinum: Cardiomediastinal silhouette is unremarkable. Musculoskeletal: No acute osseous pathology. IMPRESSION: No acute cardiopulmonary disease/process.
--- NOTE | 2021-07-08 22:23 | ED ---
Recheck HPI - General Chief Complaint: Recheck/Abnormal Lab/Rx Stated Complaint: Fever, Covid + Time Seen by Provider: 07/08/21 21:34 Source: patient, RN notes reviewed, old records reviewed Mode of arrival: ambulatory Limitations: no limitations - History of Present Illness Initial Comments: This is a 36-year-old male to the emergency department for evaluation. Patient presents today for evaluation regards to known positive coronavirus and hasn't been feeling well. Patient's concerned over throat coronavirus infection, not feeling well aches pains bodyaches. Patient has been vaccinated and has had coronavirus. MD Complaint: abnormal lab -: days(s) Returns Today for: Called Because of Abnormal Lab/Test, persistent/worsening pain related to initial visit Symptoms Since Prior Visit: worsening pain Associated Symptoms: fever, chills Treatments Prior to Arrival: other medications, Given Antibiotics on - Related Data Home Medications Medication Instructions Recorded Confirmed Acetaminophen Tab [Tylenol Tab] 500 mg PO Q6H PRN 10/01/20 04/13/21 Albuterol Sulfate [Ventolin HFA] 1 - 2 puff INHALATION RT-Q4H PRN 10/01/20 04/13/21 Ibuprofen [Motrin Ib] 800 mg PO Q8H PRN 10/01/20 04/13/21 Allergies Allergy/AdvReac Type Severity Reaction Status Date / Time amoxicillin Allergy Unknown Verified 07/08/21 20:57 Penicillins Allergy Rash/Hives Verified 07/08/21 20:57 diphenhydramine HCl AdvReac Swelling Verified 07/08/21 20:57 [From Benadryl] Review of Systems ROS Statement: Those systems with pertinent positive or pertinent negative responses have been documented in the HPI. ROS Other: All systems not noted in ROS Statement are negative. Past Medical History Past Medical History: Asthma Additional Past Medical History / Comment(s): cellulitis History of Any Multi-Drug Resistant Organisms: None Reported Past Surgical History: Appendectomy Additional Past Surgical History / Comment(s): vericose vein stripping Past Psychological History: No Psychological Hx Reported Smoking Status: Never smoker Past Alcohol Use History: Occasional Past Drug Use History: Marijuana General Exam General appearance: alert, in no apparent distress Head exam: Present: atraumatic, normocephalic, normal inspection Eye exam: Present: normal appearance, PERRL, EOMI. Absent: scleral icterus, conjunctival injection, periorbital swelling ENT exam: Present: normal exam, mucous membranes moist Neck exam: Present: normal inspection. Absent: tenderness, meningismus, lymphad enopathy Respiratory exam: Present: normal lung sounds bilaterally. Absent: respiratory distress, wheezes, rales, rhonchi, stridor Cardiovascular Exam: Present: regular rate, normal rhythm, normal heart sounds. Absent: systolic murmur, diastolic murmur, rubs, gallop, clicks GI/Abdominal exam: Present: soft, normal bowel sounds. Absent: distended, tenderness, guarding, rebound, rigid Extremities exam: Present: normal inspection, full ROM, normal capillary refill. Absent: tenderness, pedal edema, joint swelling, calf tenderness Back exam: Present: normal inspection Neurological exam: Present: alert, oriented X3, CN II-XII intact Psychiatric exam: Present: normal affect, normal mood Skin exam: Present: warm, dry, intact, normal color. Absent: rash Course Vital Signs 07/08/21 07/08/21 07/08/21 20:53 21:45 22:30 Temperature 98.7 F 98.0 F Pulse Rate 74 78 Respiratory 18 20 18 Rate Blood Pressure 111/64 116/78 O2 Sat by Pulse 97 98 Oximetry 07/09/21 00:35 Temperature Pulse Rate 78 Respiratory 16 Rate Blood Pressure 123/96 O2 Sat by Pulse Oximetry - Reevaluation(s) Reevaluation #1: 07/09/21 01:05 Medical record is reviewed Reevaluation #2: 07/09/21 01:06 Patient informed of results, questions answered Reevaluation #3: 07/09/21 01:06 Patient has no complications with anti-body treatment Medical Decision Making - Medical Decision Making 36 male to the ER for evaluation known coronavirus. Patient given anti-body treatment feeling without complaint. Patient can be discharged home - Lab Data Result diagrams: 07/08/21 21:52 07/08/21 21:52 Lab Results 07/08/21 07/08/21 07/08/21 Range/Units 21:52 21:52 21:52 WBC 5.5 (3.8-10.6) k/uL RBC 5.31 (4.30-5.90) m/uL Hgb 15.9 (13.0-17.5) gm/dL Hct 46.9 (39.0-53.0) % MCV 88.3 (80.0-100.0) fL MCH 30.0 (25.0-35.0) pg MCHC 33.9 (31.0-37.0) g/dL RDW 12.8 (11.5-15.5) % Plt Count 183 (150-450) k/uL MPV 7.7 Neutrophils % 72 % Lymphocytes % 12 % Monocytes % 12 % Eosinophils % 1 % Basophils % 1 % Neutrophils # 3.9 (1.3-7.7) k/uL Lymphocytes # 0.7 L (1.0-4.8) k/uL Monocytes # 0.7 (0-1.0) k/uL Eosinophils # 0.0 (0-0.7) k/uL Basophils # 0.0 (0-0.2) k/uL Sodium 136 L (137-145) mmol/L Potassium 4.2 (3.5-5.1) mmol/L Chloride 104 (98-107) mmol/L Carbon Dioxide 23 (22-30) mmol/L Anion Gap 9 mmol/L BUN 14 (9-20) mg/dL Creatinine 0.95 (0.66-1.25) mg/dL Est GFR (CKD-EPI)AfAm >90 (>60 ml/min/1.73 sqM) Est GFR (CKD-EPI)NonAf >90 (>60 ml/min/1.73 sqM) Glucose 100 H (74-99) mg/dL Plasma Lactic Acid Simon 0.9 (0.7-2.0) mmol/L Calcium 8.8 (8.4-10.2) mg/dL Magnesium 2.1 (1.6-2.3) mg/dL Total Bilirubin 1.1 (0.2-1.3) mg/dL AST 33 (17-59) U/L ALT 24 (4-49) U/L Alkaline Phosphatase 72 (38-126) U/L Lactate Dehydrogenase 561 (313-618) U/L C-Reactive Protein 4.4 H (<1.0) mg/dL Total Protein 6.8 (6.3-8.2) g/dL Albumin 4.1 (3.5-5.0) g/dL - EKG Data -: EKG Interpreted by Me (EKG is sinus rhythm 82 RI 176 QRS 96 QTc 404) - Radiology Data Radiology results: report reviewed (CXR is negative for acute disaese), image reviewed Disposition Clinical Impression: COVID-19 Disposition: HOME SELF-CARE Condition: Good Instructions (If sedation given, give patient instructions): Coronavirus Disease 2019 (COVID-19) Is patient prescribed a controlled substance at d/c from ED?: No Referrals: None,Stated [Primary Care Provider] - 1-2 days
[2021-07-08 22:32] LABS: Basophils % (A) 1 %; Eosinophils % (A) 1 %; HCT 46.9 % (39.0-53.0); HGB 15.9 gm/dL (13.0-17.5); Lymphocytes # (A) 0.7 k/uL (1.0-4.8); Lymphocytes % (A) 12 %; MCHC 33.9 g/dL (31.0-37.0); MCV 88.3 fL (80.0-100.0); Mean Platelet Volume 7.7; Monocytes # (A) 0.7 k/uL (0-1.0); Monocytes % (A) 12 %; Neutrophils # (A) 3.9 k/uL (1.3-7.7); Neutrophils % (A) 72 %; Platelet Count 183 k/uL (150-450); RBC 5.31 m/uL (4.30-5.90); RDW 12.8 % (11.5-15.5); WBC 5.5 k/uL (3.8-10.6)
[2021-07-08 22:40] LABS: ALT 24 U/L (4-49); AST 33 U/L (17-59); African American GFR (CKD) >90 (>60 ml/min/1.73 sqM); Albumin 4.1 g/dL (3.5-5.0); Alkaline Phosphatase 72 U/L (38-126); Anion Gap 9 mmol/L; Blood Urea Nitrogen 14 mg/dL (9-20); C Reactive Protein 4.4 mg/dL (<1.0); Calcium 8.8 mg/dL (8.4-10.2); Carbon Dioxide 23 mmol/L (22-30); Chloride 104 mmol/L (98-107); Glucose 100 mg/dL (74-99); LDH 561 U/L (313-618); Magnesium 2.1 mg/dL (1.6-2.3); Non-African American GFR(CKD) >90 (>60 ml/min/1.73 sqM); Potassium 4.2 mmol/L (3.5-5.1); Sodium 136 mmol/L (137-145); Total Bilirubin 1.1 mg/dL (0.2-1.3); Total Protein 6.8 g/dL (6.3-8.2)
[2021-07-08 23:15] VITALS: PULSE 78
[2021-07-09] MEDS ORDERED: BEBTELOVIMAB (EUA) 175 MG/2 ML VIAL IV ONE (00:30)
[2021-07-09 00:36] VITALS: RESP 16
[2021-07-09 01:50] VITALS: BP 128/73; TEMP 98.3
== END 2021-07-09 01:50 | disposition home or self-care (01) ==
LOC: EC 20:38
DX: U07.1 COVID-19 (principal); J45.909 Unspecified asthma, uncomplicated; F12.90 Cannabis use, unspecified, uncomplicated; Z79.51 Long term (current) use of inhaled steroids
CPT/HCPCS: 36415; 93005; 80053; 83605; 83615; 83735; 85025; 86140; 71045; 99284; 96374; 96375; 96361; J1100; J1885; Q0222

== ENCOUNTER 2021-09-04 13:58 | Emergency (ER) | payer OTHER ==
[2021-09-04 14:30] VITALS: BP 144/83; PULSE 81; RESP 20; TEMP 98.4
[2021-09-04] MEDS ORDERED: DIPH,PERTUS(ACELL)TETVAC-LF 0.5 ML VIAL IM ONE (15:37)
[2021-09-04] MEDS: LIDOCAINE 1% INJ 10MG/ML (5 ML VIAL-PF) SQ ONE ×2 (15:47→17:31)
--- NOTE | 2021-09-04 16:44 | XR ---
EXAMINATION TYPE: XR hand complete LT DATE OF EXAM: 09/04/2021 4:37 PM INDICATION: Patient age:Male; 36 years old; Reason for study: laceration; COMPARISON: None TECHNIQUE: 3 views of the left hand were obtained. FINDINGS: No radiopaque foreign bodies. Normal alignment of the visualized joints. No acute osseous pathology is identified. No evidence of soft tissue swelling. IMPRESSION: 1. No acute osseous pathology. 2. No radiopaque foreign bodies.
[2021-09-04] MEDS ORDERED: TOPICAL SKIN ADHESIVE 1 EACH AMP TOPICAL ONE (17:21)
--- NOTE | 2021-09-04 17:45 | ED ---
Wound/Laceration HPI - General Chief Complaint: Wound/Laceration Stated Complaint: wrist lac Time Seen by Provider: 09/04/21 15:30 Source: patient Mode of arrival: ambulatory Limitations: no limitations - History of Present Illness Initial Comments: Patient is a 36-year-old male presenting with chief complaint of Left hand laceration. Patient states that yesterday after doing work in his garage, he cut his hand on a pipe. He attempted to use a butterfly bandage and liquid bandage at home to close the wound, today the wound opened and started bleeding. Patient states that he does not remember the last time inattentive shot. At this time he denies any numbness, tingling, weakness, redness, swelling, discharge, loss of range of motion. - Related Data Home Medications Medication Instructions Recorded Confirmed Acetaminophen Tab [Tylenol Tab] 500 mg PO Q6H PRN 10/01/20 04/13/21 Albuterol Sulfate [Ventolin HFA] 1 - 2 puff INHALATION RT-Q4H PRN 10/01/20 04/13/21 Ibuprofen [Motrin Ib] 800 mg PO Q8H PRN 10/01/20 04/13/21 Previous Rx's Medication Instructions Recorded Cephalexin [Keflex] 500 mg PO Q12HR 5 Days #10 cap 09/04/21 Allergies Allergy/AdvReac Type Severity Reaction Status Date / Time amoxicillin Allergy Unknown Verified 09/04/21 14:30 Penicillins Allergy Rash/Hives Verified 09/04/21 14:30 diphenhydramine HCl AdvReac Swelling Verified 09/04/21 14:30 [From Benadryl] Review of Systems ROS Statement: Those systems with pertinent positive or pertinent negative responses have been documented in the HPI. ROS Other: All systems not noted in ROS Statement are negative. Past Medical History Past Medical History: Asthma Additional Past Medical History / Comment(s): cellulitis History of Any Multi-Drug Resistant Organisms: None Reported Past Surgical History: Appendectomy Additional Past Surgical History / Comment(s): vericose vein stripping Past Psychological History: No Psychological Hx Reported Smoking Status: Never smoker Past Alcohol Use History: Occasional Past Drug Use History: Marijuana General Exam Limitations: no limitations General appearance: alert, in no apparent distress Head exam: Present: atraumatic, normocephalic, normal inspection Eye exam: Present: normal appearance, EOMI. Absent: scleral icterus Respiratory exam: Present: normal lung sounds bilaterally. Absent: respiratory distress, wheezes, rales, rhonchi, stridor Cardiovascular Exam: Present: regular rate, normal rhythm, normal heart sounds. Absent: systolic murmur, diastolic murmur, rubs, gallop, clicks Neurological exam: Present: alert, oriented X3, CN II-XII intact Psychiatric exam: Present: normal affect, normal mood Skin exam: Present: warm, dry, normal color Expanded Type of lesion: Present: laceration (Less than 1 cm, flap, left hand.) Course Vital Signs 09/04/21 14:27 Temperature 98.4 F Pulse Rate 81 Respiratory 20 Rate Blood Pressure 144/83 O2 Sat by Pulse 99 Oximetry Medical Decision Making - Medical Decision Making Patient is a 36-year-old male presenting with chief complaint of left hand laceration. This was obtained yesterday after cutting his hand on a pipe in his garage. He attempted to close it himself at home, however today the wound opened back up and started bleeding. On examination there is a small less than 1 cm laceration to the left hand, there is a small skin flap, located superf icially. Wound was closed with Dermabond and Steri-Strips. Patient was given an updated tetanus shot. Placed on Keflex for 5 days. Follow-up with PCP in 2- 3 days. Report back to ER if any worsening symptoms. Answered all questions, discussed return parameters and alarm symptoms. Patient conveyed verbal understanding and agreed to the plan. My attending is Dr. Davison Disposition Clinical Impression: Laceration Disposition: HOME SELF-CARE Condition: Good Instructions (If sedation given, give patient instructions): Laceration (ED), Skin Adhesive Care (ED) Additional Instructions: Follow-up with PCP within one week. Report back to ER with any worsening symptoms. Keep the wound clean and dry. Take medication as prescribed, discontinue if any reaction. Prescriptions: Cephalexin [Keflex] 500 mg PO Q12HR 5 Days #10 cap Is patient prescribed a controlled substance at d/c from ED?: No Referrals: None,Stated [Primary Care Provider] - 09/11/21 Time of Disposition: 17:45
== END 2021-09-04 17:49 | disposition home or self-care (01) ==
LOC: EC 13:58
DX: S61.412A Laceration without foreign body of left hand, initial encounter (principal); J45.909 Unspecified asthma, uncomplicated; F12.90 Cannabis use, unspecified, uncomplicated; Z79.51 Long term (current) use of inhaled steroids; Z23 Encounter for immunization; W26.8XXA Contact with other sharp object(s), not elsewhere classified, initial encounter; Y92.59 Other trade areas as the place of occurrence of the external cause
CPT/HCPCS: 12001; 90471; 90715; 99283

== ENCOUNTER 2021-10-26 11:32 | Emergency (ER) | payer OTHER ==
[2021-10-26 11:37] VITALS: TEMP 98.2
[2021-10-26 11:48] LABS: Glucose,Whole Blood 108 mg/dL (70-110)
[2021-10-26] MEDS ORDERED: SODIUM CHLORIDE 0.9% 1,000 ML IV STA (11:51)
[2021-10-26 12:06] LABS: Basophils % (A) 1 %; Eosinophils # (A) 0.1 k/uL (0-0.7); Eosinophils % (A) 2 %; HCT 46.5 % (39.0-53.0); HGB 15.8 gm/dL (13.0-17.5); Lymphocytes # (A) 0.7 k/uL (1.0-4.8); Lymphocytes % (A) 15 %; MCH 30.1 pg (25.0-35.0); MCHC 33.9 g/dL (31.0-37.0); MCV 88.8 fL (80.0-100.0); Mean Platelet Volume 7.7; Monocytes # (A) 0.4 k/uL (0-1.0); Monocytes % (A) 8 %; Neutrophils # (A) 3.6 k/uL (1.3-7.7); Neutrophils % (A) 73 %; Platelet Count 228 k/uL (150-450); RBC 5.24 m/uL (4.30-5.90); RDW 12.8 % (11.5-15.5); WBC 4.9 k/uL (3.8-10.6)
--- NOTE | 2021-10-26 12:16 | XR ---
EXAMINATION TYPE: XR chest 2V DATE OF EXAM: 10/26/2021 12:07 PM COMPARISON: Chest radiographs from 07/08/2021. TECHNIQUE: XR chest 2V Frontal and lateral views of the chest. CLINICAL INDICATION:Male, 36 years old with history of weakness; FINDINGS: Lungs/Pleura: There is no evidence of pleural effusion, focal consolidation, or pneumothorax. Pulmonary vascularity: Unremarkable. Heart/mediastinum: Cardiomediastinal silhouette is unremarkable. Musculoskeletal: No acute osseous pathology. IMPRESSION: No acute cardiopulmonary disease/process. No significant change from prior examination.
[2021-10-26 12:19] LABS: ALT 23 U/L (4-49); AST 31 U/L (17-59); African American GFR (CKD) >90 (>60 ml/min/1.73 sqM); Albumin 4.4 g/dL (3.5-5.0); Alkaline Phosphatase 72 U/L (38-126); Anion Gap 7 mmol/L; Blood Urea Nitrogen 17 mg/dL (9-20); Calcium 9.2 mg/dL (8.4-10.2); Carbon Dioxide 25 mmol/L (22-30); Chloride 107 mmol/L (98-107); Glucose 113 mg/dL (74-99); Non-African American GFR(CKD) >90 (>60 ml/min/1.73 sqM); Potassium 4.2 mmol/L (3.5-5.1); Sodium 139 mmol/L (137-145); Total Protein 6.9 g/dL (6.3-8.2)
--- NOTE | 2021-10-26 12:38 | ED ---
General Adult HPI - General Chief complaint: Dizziness Stated complaint: Dizziness Time Seen by Provider: 10/26/21 11:35 Source: patient, RN notes reviewed Mode of arrival: ambulatory Limitations: no limitations - History of Present Illness Initial comments: This a 36-year-old male presents emergency Department chief complaint of generalized is not feeling well. He states overnight at work he started feeling slightly lightheaded felt that he was having some muscle cramps, possible dehydration. Patient states that he went home woke up today still didn't feel the best. 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 Patient states she's had some intermittent episodes of feeling lightheaded denies feeling the room spinning, dizziness no chest pain or shortness breath this time he felt that he had a fever he had hot and cold flashes. Slight nausea. - Related Data Home Medications Medication Instructions Recorded Confirmed Ibuprofen [Motrin Ib] 800 mg PO Q8H PRN 10/01/20 10/26/21 Allergies Allergy/AdvReac Type Severity Reaction Status Date / Time amoxicillin Allergy Unknown Verified 10/26/21 12:28 Penicillins Allergy Rash/Hives Verified 10/26/21 12:28 diphenhydramine HCl AdvReac Tongue Verified 10/26/21 12:28 [From Benadryl] Jay Review of Systems ROS Statement: Those systems with pertinent positive or pertinent negative responses have been documented in the HPI. ROS Other: All systems not noted in ROS Statement are negative. Past Medical History Past Medical History: Asthma Additional Past Medical History / Comment(s): cellulitis, COvid History of Any Multi-Drug Resistant Organisms: None Reported Past Surgical History: Appendectomy Additional Past Surgical History / Comment(s): vericose vein stripping Past Psychological History: No Psychological Hx Reported Smoking Status: Never smoker Past Alcohol Use History: Occasional Past Drug Use History: Marijuana General Exam Limitations: no limitations General appearance: alert, in no apparent distress Head exam: Present: atraumatic, normocephalic, normal inspection Eye exam: Present: normal appearance, PERRL, EOMI. Absent: scleral icterus, conjunctival injection, periorbital swelling ENT exam: Present: normal exam, normal oropharynx, mucous membranes moist Neck exam: Present: normal inspection, full ROM. Absent: tenderness, meningismus, lymphadenopathy Respiratory exam: Present: normal lung sounds bilaterally. Absent: respiratory distress, wheezes, rales, rhonchi, stridor Cardiovascular Exam: Present: regular rate, normal rhythm, normal heart sounds. Absent: systolic murmur, diastolic murmur, rubs, gallop, clicks GI/Abdominal exam: Present: soft, normal bowel sounds. Absent: distended, tenderness, guarding, rebound, rigid Neurological exam: Present: alert Skin exam: Present: warm, dry, intact, normal color. Absent: rash Course Vital Signs 10/26/21 10/26/21 11:34 12:26 Temperature 98.2 F Pulse Rate 94 86 Respiratory 20 Rate Blood Pressure 165/124 119/81 O2 Sat by Pulse 97 Oximetry Medical Decision Making - Medical Decision Making This a 36-year-old presented for feeling lightheaded, possible dehydration. Patient labwork unremarkable including negative EKG, troponin. Patient does feel improved after IV fluids. This may related to dehydration, heat exhaustion. Return parameters were discussed. - Lab Data Result diagrams: 10/26/21 11:53 10/26/21 11:52 Lab Results 10/26/21 10/26/21 10/26/21 Range/Units 11:47 11:52 11:52 WBC (3.8-10.6) k/uL RBC (4.30-5.90) m/uL Hgb (13.0-17.5) gm/dL Hct (39.0-53.0) % MCV (80.0-100.0) fL MCH (25.0-35.0) pg MCHC (31.0-37.0) g/dL RDW (11.5-15.5) % Plt Count (150-450) k/uL MPV Neutrophils % % Lymphocytes % % Monocytes % % Eosinophils % % Basophils % % Neutrophils # (1.3-7.7) k/uL Lymphocytes # (1.0-4.8) k/uL Monocytes # (0-1.0) k/uL Eosinophils # (0-0.7) k/uL Basophils # (0-0.2) k/uL Sodium 139 (137-145) mmol/L Potassium 4.2 (3.5-5.1) mmol/L Chloride 107 (98-107) mmol/L Carbon Dioxide 25 (22-30) mmol/L Anion Gap 7 mmol/L BUN 17 (9-20) mg/dL Creatinine 1.02 (0.66-1.25) mg/dL Est GFR (CKD-EPI)AfAm >90 (>60 ml/min/1.73 sqM) Est GFR (CKD-EPI)NonAf >90 (>60 ml/min/1.73 sqM) Glucose 113 H (74-99) mg/dL POC Glucose (mg/dL) 108 (70-110) mg/dL POC Glu Lining Ironer ID Loida Degroot Calcium 9.2 (8.4-10.2) mg/dL Magnesium 2.0 (1.6-2.3) mg/dL Total Bilirubin 1.0 (0.2-1.3) mg/dL AST 31 (17-59) U/L ALT 23 (4-49) U/L Alkaline Phosphatase 72 (38-126) U/L Troponin I <0.012 (0.000-0.034) ng/mL Total Protein 6.9 (6.3-8.2) g/dL Albumin 4.4 (3.5-5.0) g/dL Coronavirus (PCR) (Not Detectd) 10/26/21 10/26/21 Range/Units 11:53 11:54 WBC 4.9 (3.8-10.6) k/uL RBC 5.24 (4.30-5.90) m/uL Hgb 15.8 (13.0-17.5) gm/dL Hct 46.5 (39.0-53.0) % MCV 88.8 (80.0-100.0) fL MCH 30.1 (25.0-35.0) pg MCHC 33.9 (31.0-37.0) g/dL RDW 12.8 (11.5-15.5) % Plt Count 228 (150-450) k/uL MPV 7.7 Neutrophils % 73 % Lymphocytes % 15 % Monocytes % 8 % Eosinophils % 2 % Basophils % 1 % Neutrophils # 3.6 (1.3-7.7) k/uL Lymphocytes # 0.7 L (1.0-4.8) k/uL Monocytes # 0.4 (0-1.0) k/uL Eosinophils # 0.1 (0-0.7) k/uL Basophils # 0.0 (0-0.2) k/uL Sodium (137-145) mmol/L Potassium (3.5-5.1) mmol/L Chloride (98-107) mmol/L Carbon Dioxide (22-30) mmol/L Anion Gap mmol/L BUN (9-20) mg/dL Creatinine (0.66-1.25) mg/dL Est GFR (CKD-EPI)AfAm (>60 ml/min/1.73 sqM) Est GFR (CKD-EPI)NonAf (>60 ml/min/1.73 sqM) Glucose (74-99) mg/dL POC Glucose (mg/dL) (70-110) mg/dL POC Glu Lining Ironer ID Calcium (8.4-10.2) mg/dL Magnesium (1.6-2.3) mg/dL Total Bilirubin (0.2-1.3) mg/dL AST (17-59) U/L ALT (4-49) U/L Alkaline Phosphatase (38-126) U/L Troponin I (0.000-0.034) ng/mL Total Protein (6.3-8.2) g/dL Albumin (3.5-5.0) g/dL Coronavirus (PCR) Not Detected (Not Detectd) Disposition Clinical Impression: Lightheaded Disposition: HOME SELF-CARE Condition: Stable Instructions (If sedation given, give patient instructions): Dizziness (ED) Additional Instructions: Please return to the Emergency Department if symptoms worsen or any other concerns. Is patient prescribed a controlled substance at d/c from ED?: No Referrals: None,Stated [Primary Care Provider] - 1-2 days Time of Disposition: 13:09
[2021-10-26 13:26] VITALS: BP 128/89; PULSE 75; RESP 18
== END 2021-10-26 13:26 | disposition home or self-care (01) ==
LOC: EC 11:32
DX: R51.9 Headache, unspecified (principal); J45.909 Unspecified asthma, uncomplicated; Z20.822 Contact with and (suspected) exposure to COVID-19; Z88.0 Allergy status to penicillin; Z88.8 Allergy status to other drugs, medicaments and biological substances
CPT/HCPCS: 36415; 71046; 80053; 83735; 84484; 85025; 87635; 93005

== ENCOUNTER 2021-10-29 18:28 | Emergency (ER) | payer OTHER ==
[2021-10-29 19:04] VITALS: BP 132/87; PULSE 87; RESP 20; TEMP 98.3
--- NOTE | 2021-10-29 20:04 | ED ---
General Adult HPI - General Chief complaint: Chest Pain Stated complaint: chest pain/face pressure Time Seen by Provider: 10/29/21 19:11 Source: patient Mode of arrival: ambulatory Limitations: no limitations - History of Present Illness Initial comments: Patient is a 36-year-old male who presents to the emergency room with complaints of intermittent atypical chest pain, head fullness and occasional popping in his ears. He denies any chest pain at this time. Does report occasional shortness of breath with moderate activity but attributes this to his weight and history of asthma. He reports that he has an increase in generalized malaise after large food intake and is concerned that he is possibly diabetic. He denies any nausea, vomiting, diarrhea, typical chest pain, shortness of breath at rest, fevers, or chills. He admits to poor dietary habits. He denies any heartburn or epigastric pain. In addition to his asthma history as stated above. He also has had coven multiple times with his last bout in March 2021. He was here in the emergency room with lightheadedness symptoms approximately a days ago and had significant lab workup and covid testing at that time which was negative. - Related Data Home Medications Medication Instructions Recorded Confirmed Ibuprofen [Motrin Ib] 800 mg PO Q8H PRN 10/01/20 10/29/21 Previous Rx's Medication Instructions Recorded Doxycycline [Vibramycin] 100 mg PO BID 7 Days #14 capsule 10/29/21 Pantoprazole [Protonix] 40 mg PO DAILY 30 Days #30 tab 10/29/21 Allergies Allergy/AdvReac Type Severity Reaction Status Date / Time amoxicillin Allergy Unknown Verified 10/29/21 20:17 Penicillins Allergy Rash/Hives Verified 10/29/21 20:17 diphenhydramine HCl AdvReac Tongue Verified 10/29/21 20:17 [From Benadryl] Jay Review of Systems ROS Statement: Those systems with pertinent positive or pertinent negative responses have been documented in the HPI. ROS Other: All systems not noted in ROS Statement are negative. Past Medical History Past Medical History: Asthma Additional Past Medical History / Comment(s): cellulitis, COvid History of Any Multi-Drug Resistant Organisms: None Reported Past Surgical History: Appendectomy Additional Past Surgical History / Comment(s): vericose vein stripping Past Psychological History: No Psychological Hx Reported Smoking Status: Never smoker Past Alcohol Use History: Occasional Past Drug Use History: Marijuana General Exam Limitations: no limitations General appearance: alert, in no apparent distress Head exam: Present: atraumatic, normocephalic, normal inspection Eye exam: Present: normal appearance, PERRL, EOMI. Absent: scleral icterus, conjunctival injection, nystagmus, periorbital swelling ENT exam: Present: other (Bilateral turbinates with edema and erythema but patent. TMs with mild serous effusions bilaterally without edema or perforation. Pharynx with mild erythema near without edema or tonsillar exudate.) Expanded Ear exam: Present: normal external inspection Neck exam: Present: normal inspection. Absent: tenderness, meningismus, lymphadenopathy Respiratory exam: Present: normal lung sounds bilaterally. Absent: respiratory distress, wheezes, rales, rhonchi, stridor Cardiovascular Exam: Present: regular rate, normal rhythm, normal heart sounds. Absent: systolic murmur, diastolic murmur, rubs, gallop, clicks GI/Abdominal exam: Present: soft, normal bowel sounds. Absent: distended, tenderness, guarding, rebound, rigid Extremities exam: Absent: pedal edema, joint swelling Back exam: Present: normal inspection Neurological exam: Present: alert, oriented X3, CN II-XII intact Psychiatric exam: Present: normal affect, normal mood Skin exam: Present: warm, dry, intact, normal color. Absent: rash Course Vital Signs 10/29/21 19:01 Temperature 98.3 F Pulse Rate 87 Respiratory 20 Rate Blood Pressure 132/87 O2 Sat by Pulse 98 Oximetry Medical Decision Making - Medical Decision Making Physical exam consistent with sinus infection however given symptoms after eating will check A1c in the setting of elevated glucose on last labs. No indication for CMP will check BMP to evaluate for dehydration and renal status. Chest pain atypical EKG completed in triage prior to patient coming back and unchanged compared to last EKG on 07/08/2021 no need for further cardiac workup as chest pain is atypical. Chest x-ray completed on 10/24/2021 without anomalies no indication for repeat at this time. COVID testing negative on 10/24/2021 without new exposure or change in symptoms will defer repeat testing at this time. BMP shows mild elevated glucose level otherwise normal. A1c pending. Discussed symptoms with patient. Patient agreeable for discharge home with treatment for acute bacterial sinusitis along with GERD. Will keep off work additional 48 hours for medication efficacy prior to returning to work. Advised need for follow-up with primary care provider in regards to A1c results and further treatment regarding GERD. Case discussed with Dr. Davison - Lab Data Result diagrams: 10/29/21 20:03 Lab Results 10/29/21 Range/Units 20:03 Sodium 138 (137-145) mmol/L Potassium 4.0 (3.5-5.1) mmol/L Chloride 104 (98-107) mmol/L Carbon Dioxide 26 (22-30) mmol/L Anion Gap 8 mmol/L BUN 18 (9-20) mg/dL Creatinine 1.07 (0.66-1.25) mg/dL Est GFR (CKD-EPI)AfAm >90 (>60 ml/min/1.73 sqM) Est GFR (CKD-EPI)NonAf 89 (>60 ml/min/1.73 sqM) Glucose 109 H (74-99) mg/dL Calcium 9.6 (8.4-10.2) mg/dL - EKG Data EKG Comments: EKG sinus rhythm possible left atrial enlargement. Possible anterior infarct both present on EKG on 07/08/2021. Ventricular rate 86 bpm, CT interval 165 ms, QRS duration 94 ms, QT/QTC 351/395 ms, PRT axes 21, 39, -9 When compared to previous EKG there are: no significant change Disposition Clinical Impression: Sinusitis, GERD (gastroesophageal reflux disease) Disposition: HOME SELF-CARE Condition: Stable Instructions (If sedation given, give patient instructions): GERD (Gastroesophageal Reflux Disease) in Children (ED), Sinusitis (ED) Additional Instructions: Please complete antibiotics as prescribed. Please take Protonix once a day. Please follow-up with your primary care provider in regards to treatment for GERD along with A1c follow-up. Drink plenty of fluids. May use antihistamines [id number]-[id number] such as Zyrtec and Claritin as needed for nasal congestion. May use Tylenol or ibuprofen for any pain or fevers. Return to work and 48 hours if no lightheadedness or headaches. Please return to the Emergency Department if symptoms worsen or any other concerns. Prescriptions: Pantoprazole [Protonix] 40 mg PO DAILY 30 Days #30 tab Doxycycline [Vibramycin] 100 mg PO BID 7 Days #14 capsule Is patient prescribed a controlled substance at d/c from ED?: No Referrals: None,Stated [Primary Care Provider] - 1-2 days Time of Disposition: 21:42
[2021-10-29 20:25] LABS: African American GFR (CKD) >90 (>60 ml/min/1.73 sqM); Anion Gap 8 mmol/L; Blood Urea Nitrogen 18 mg/dL (9-20); Calcium 9.6 mg/dL (8.4-10.2); Carbon Dioxide 26 mmol/L (22-30); Chloride 104 mmol/L (98-107); Glucose 109 mg/dL (74-99); Non-African American GFR(CKD) 89 (>60 ml/min/1.73 sqM); Sodium 138 mmol/L (137-145)
== END 2021-10-29 21:56 | disposition home or self-care (01) ==
LOC: EC 18:28
DX: K21.9 Gastro-esophageal reflux disease without esophagitis (principal); J32.9 Chronic sinusitis, unspecified; J45.909 Unspecified asthma, uncomplicated; Z88.0 Allergy status to penicillin; Z88.8 Allergy status to other drugs, medicaments and biological substances
CPT/HCPCS: 36415; 80048; 83036; 99285

== ENCOUNTER → 2021-11-01 | Outpatient (CLI) | payer OTHER ==
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
== END | disposition home or self-care (01) ==
LOC: RADXRMAIN 09:49
PROVIDERS: ATTEND Nurse Practitioner Family
DX: M54.2 Cervicalgia (principal)
CPT/HCPCS: 72040

== ENCOUNTER 2021-11-21 19:44 | Emergency (ER) | payer OTHER ==
[2021-11-21 19:49] VITALS: BP 142/94; PULSE 90; RESP 16; TEMP 98.6
[2021-11-21] MEDS ORDERED: CYCLOBENZAPRINE 10MG STARTER 3 TAB BTL PO STA (20:00)
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
--- NOTE | 2021-11-21 20:43 | XR ---
EXAMINATION TYPE: XR cervical spine comp DATE OF EXAM: 11/21/2021 COMPARISON: NONE HISTORY: Pain TECHNIQUE: 6 views FINDINGS: Cervical vertebra have normal spacing and alignment. Posterior elements are intact. Neural foramina are widely patent. Atlantoaxial facet joint is normal. IMPRESSION: Normal cervical spine exam.
--- NOTE | 2021-11-21 20:47 | XR ---
EXAMINATION TYPE: XR lumbosacral spine min 4V DATE OF EXAM: 11/21/2021 COMPARISON: NONE HISTORY: Pain TECHNIQUE: 5 views FINDINGS: The lumbar vertebra show a second-degree L5-S1 spondylolisthesis with bilateral L5 spondylo lysis. No compression fracture. Sacroiliac joints are intact. There is some disc space narrowing at L 4-5 and L5-S1. IMPRESSION: Second degree L5-S1 spondylolisthesis with L5 spondylolysis.
== END 2021-11-21 21:05 | disposition home or self-care (01) ==
LOC: EC 19:44
DX: S16.1XXA Strain of muscle, fascia and tendon at neck level, initial encounter (principal); S30.0XXA Contusion of lower back and pelvis, initial encounter; G44.209 Tension-type headache, unspecified, not intractable; J45.909 Unspecified asthma, uncomplicated; Z86.16 Personal history of COVID-19; Z88.0 Allergy status to penicillin; Z88.8 Allergy status to other drugs, medicaments and biological substances; V87.8XXA Person injured in other specified noncollision transport accidents involving motor vehicle (traffic), initial encounter; Y93.55 Activity, bike riding
CPT/HCPCS: 72050; 72110; 99284

== ENCOUNTER 2021-12-30 22:42 | Emergency (ER) | payer OTHER ==
[2021-12-30 22:50] VITALS: TEMP 97.6
[2021-12-30] MEDS ORDERED: hydrOXYzine HCL 50 MG/ML 1 ML VIAL IM PRN (22:58)
[2021-12-30] MEDS ORDERED: FAMOTIDINE 20 MG TAB PO STA (22:59)
[2021-12-30] MEDS ORDERED: predniSONE 50 MG TAB PO STA (22:59)
--- NOTE | 2021-12-30 23:04 | ED ---
Allergic Reaction HPI - General Chief complaint: Allergic Reaction Stated complaint: Itchiness on neck and back, Chills Time Seen by Provider: 12/30/21 22:52 Source: patient, RN notes reviewed Mode of arrival: ambulatory Limitations: no limitations - History of Present Illness Initial Comments: This is a pleasant 36-year-old male who presents emergency department complaining of 1 hour of itching. Patient states it seemed to start on his neck but now encompasses his entire back. Patient states it feels like he rolled around in insulation. Patient states she was at a friend's house but said an appointment chair. Patient did eat [place] hamburgers but states he has had that before. Denies any other exposures, no new detergents, no new med ications. Patient denying any sore throat, throat symptoms, no difficulty breathing. Patient states he did have a mild headache which resolved with Tylenol earlier in the evening. No previous ALLERGY to Tylenol. No headache, no fever or chills, no changes in vision or hearing, no sore throat or difficulty with speech, no neck pain, no chest pain or shortness of breath, no abdominal pain, no nausea or vomiting, no changes in urination or bowel movements, no numbness or tingling, no extremity pain. Past medical, surgical, social, and family history reviewed. - Related Data Home Medications Medication Instructions Recorded Confirmed Ibuprofen [Motrin Ib] 800 mg PO Q8H PRN 10/01/20 11/29/21 Previous Rx's Medication Instructions Recorded Pantoprazole [Protonix] 40 mg PO DAILY 30 Days #30 tab 10/29/21 Cyclobenzaprine [Flexeril] 10 mg PO TID PRN #20 tab 11/21/21 Fluticasone Nasal Daisy [Flonase 2 spray EA NOSTRIL DAILY #16 gm 11/29/21 Nasal Daisy] Loratadine [Alavert] 10 mg PO DAILY 30 Days #30 tab 11/29/21 Moxifloxacin HCl [Avelox] 400 mg PO DAILY 10 Days #10 tab 11/29/21 Ondansetron Odt [Zofran Odt] 4 mg PO Q8HR PRN #20 tab 12/02/21 hydrOXYzine HCL 25 mg PO Q8HR PRN #20 tab 12/31/21 methylPREDNISolone Dose Pack 4 mg PO DIRECTED #21 tab 12/31/21 [Medrol Dose Pack] Allergies Allergy/AdvReac Type Severity Reaction Status Date / Time amoxicillin Allergy Unknown Verified 12/30/21 22:50 Penicillins Allergy Rash/Hives Verified 12/30/21 22:50 diphenhydramine HCl AdvReac Tongue Verified 12/30/21 22:50 [From Benadryl] Jay Review of Systems ROS Statement: Those systems with pertinent positive or pertinent negative responses have been documented in the HPI. ROS Other: All systems not noted in ROS Statement are negative. Past Medical History Past Medical History: Asthma, GERD/Reflux Additional Past Medical History / Comment(s): cellulitis, COvid History of Any Multi-Drug Resistant Organisms: None Reported Past Surgical History: Appendectomy Additional Past Surgical History / Comment(s): vericose vein stripping Past Psychological History: No Psychological Hx Reported Smoking Status: Never smoker Past Alcohol Use History: Occasional Past Drug Use History: None Reported General Exam Limitations: no limitations General appearance: alert, anxious Head exam: Present: atraumatic, normocephalic, normal inspection Eye exam: Present: normal appearance, PERRL, EOMI. Absent: scleral icterus, conjunctival injection, periorbital swelling ENT exam: Present: normal exam, normal oropharynx, mucous membranes moist, TM's normal bilaterally, normal external ear exam. Absent: mucous membranes dry Neck exam: Present: normal inspection, full ROM. Absent: tenderness, meningismus, lymphadenopathy Respiratory exam: Present: normal lung sounds bilaterally. Absent: respiratory distress, wheezes, rales, rhonchi, stridor Cardiovascular Exam: Present: regular rate, normal rhythm, normal heart sounds. Absent: systolic murmur, diastolic murmur, rubs, gallop, clicks GI/Abdominal exam: Present: soft, normal bowel sounds. Absent: distended, tenderness, guarding, rebound, rigid Extremities exam: Present: normal inspection, full ROM, normal capillary refill. Absent: tenderness, pedal edema, joint swelling, calf tenderness Back exam: Present: normal inspection Neurological exam: Present: alert, oriented X3, CN II-XII intact Psychiatric exam: Present: normal affect, normal mood Skin exam: Present: warm, dry, intact, normal color, other (No definitive rash. Patient does have some superficial excoriations noted to his posterior neck and back.). Absent: rash Course Vital Signs 12/30/21 12/30/21 12/30/21 22:45 22:47 23:37 Temperature 97.6 F 97.6 F Pulse Rate 78 78 Respiratory 18 18 Rate Blood Pressure 167/119 167/119 124/82 O2 Sat by Pulse 99 99 Oximetry - Reevaluation(s) Reevaluation #1: 12/31/21 01:01 Medical record is reviewed Symptoms are improved here in the emergency department Patient is informed of results and questions answered Patient in no distress Medical Decision Making - Medical Decision Making Patient noted to be hypertensive. Patient does have history of anxiety which she admittedly states has been worse since his father and his sister is having some current health problems. Patient was much improved prior to discharge. Blood pressure had normalized. Patient symptoms have normalized. Patient really had no definitive rash. Patient has itchy skin. I have no diagnostic reasoning for this. However the patient could've came in contact with something that was irritative. Going to treat conservatively with antihistamines. I did agree to give the patient a Medrol Dosepak. Patient was initially hypertensive. We'll have the patient follow-up with his regular physician. Patient has known anxiety and certainly this could be a compounding variable. Patient did not appear to have any infectious process. Did not appear to be consistent with cardiopulmonary disease. Patient was told to return to the ER for any signs or symptoms worsen. Told to return immediately if any other problems arise. All questions answered. Treatment plan discussed. Patient in agreement Every effort has been made to ensure accuracy of this dictation. However, due to the limitations of electronic medical records and dictation devices, errors in charting still occur. Pediatric Acute Care Unit Nurse Dr. Tirado - Lab Data Result diagrams: 12/30/21 23:41 12/30/21 23:41 Lab Results 12/30/21 12/30/21 Range/Units 23:41 23:41 WBC 6.3 (3.8-10.6) k/uL RBC 5.38 (4.30-5.90) m/uL Hgb 15.6 (13.0-17.5) gm/dL Hct 47.4 (39.0-53.0) % MCV 88.1 (80.0-100.0) fL MCH 29.1 (25.0-35.0) pg MCHC 33.0 (31.0-37.0) g/dL RDW 12.3 (11.5-15.5) % Plt Count 202 (150-450) k/uL MPV 8.1 Neutrophils % 65 % Lymphocytes % 17 % Monocytes % 10 % Eosinophils % 4 % Basophils % 1 % Neutrophils # 4.1 (1.3-7.7) k/uL Lymphocytes # 1.1 (1.0-4.8) k/uL Monocytes # 0.6 (0-1.0) k/uL Eosinophils # 0.2 (0-0.7) k/uL Basophils # 0.1 (0-0.2) k/uL Sodium 136 L (137-145) mmol/L Potassium 5.0 (3.5-5.1) mmol/L Chloride 101 (98-107) mmol/L Carbon Dioxide 22 (22-30) mmol/L Anion Gap 13 mmol/L BUN 21 H (9-20) mg/dL Creatinine 0.93 (0.66-1.25) mg/dL Est GFR (CKD-EPI)AfAm >90 (>60 ml/min/1.73 sqM) Est GFR (CKD-EPI)NonAf >90 (>60 ml/min/1.73 sqM) Glucose 106 H (74-99) mg/dL Calcium 9.2 (8.4-10.2) mg/dL Magnesium 2.2 (1.6-2.3) mg/dL - EKG Data EKG Comments: EKG done at 2348 in the ED attending physician reveals sinus rhythm with left atrial enlargement, poor R wave progression. Normal axis. When compared to the previous study from 12/02/2021 there is no significant acute change. Normal intervals. Rate of 62 Disposition Clinical Impression: Elevated blood pressure reading, Anxiety, Pruritus Disposition: HOME SELF-CARE Condition: Good Instructions (If sedation given, give patient instructions): Hypertension (ED), Anxiety (ED), Itchy Skin (ED) Additional Instructions: Follow-up with your regular physician as directed. Return to the ER immediately if any symptoms worsen, new symptoms arise, or any other problems develop. Prescriptions: hydrOXYzine HCL 25 mg PO Q8HR PRN #20 tab PRN Reason: Itching methylPREDNISolone Dose Pack [Medrol Dose Pack] 4 mg PO DIRECTED #21 tab Is patient prescribed a controlled substance at d/c from ED?: No Referrals: Oli Metcalf DO [Primary Care Provider] - 1-2 days Time of Disposition: 01:02
--- NOTE | 2021-12-30 23:48 | XR ---
EXAMINATION TYPE: XR chest 2V DATE OF EXAM: 12/30/2021 COMPARISON: 12/02/2021 HISTORY: Chest pain TECHNIQUE: 2 views FINDINGS: Heart and mediastinum are normal. Lungs are clear. Diaphragm is normal. Bony thorax is inta ct. IMPRESSION: Normal chest. No change
[2021-12-31 00:39] LABS: Basophils # (A) 0.1 k/uL (0-0.2); Basophils % (A) 1 %; Eosinophils # (A) 0.2 k/uL (0-0.7); Eosinophils % (A) 4 %; HCT 47.4 % (39.0-53.0); HGB 15.6 gm/dL (13.0-17.5); Lymphocytes # (A) 1.1 k/uL (1.0-4.8); Lymphocytes % (A) 17 %; MCH 29.1 pg (25.0-35.0); MCV 88.1 fL (80.0-100.0); Mean Platelet Volume 8.1; Monocytes # (A) 0.6 k/uL (0-1.0); Monocytes % (A) 10 %; Neutrophils # (A) 4.1 k/uL (1.3-7.7); Neutrophils % (A) 65 %; Platelet Count 202 k/uL (150-450); RBC 5.38 m/uL (4.30-5.90); RDW 12.3 % (11.5-15.5); WBC 6.3 k/uL (3.8-10.6)
[2021-12-31 00:51] LABS: African American GFR (CKD) >90 (>60 ml/min/1.73 sqM); Anion Gap 13 mmol/L; Blood Urea Nitrogen 21 mg/dL (9-20); Calcium 9.2 mg/dL (8.4-10.2); Carbon Dioxide 22 mmol/L (22-30); Chloride 101 mmol/L (98-107); Glucose 106 mg/dL (74-99); Magnesium 2.2 mg/dL (1.6-2.3); Non-African American GFR(CKD) >90 (>60 ml/min/1.73 sqM); Sodium 136 mmol/L (137-145)
[2021-12-31 01:21] VITALS: BP 124/83; PULSE 88; RESP 16
== END 2021-12-31 01:15 | disposition home or self-care (01) ==
LOC: EC 22:42
DX: L29.9 Pruritus, unspecified (principal); F41.9 Anxiety disorder, unspecified; R03.0 Elevated blood-pressure reading, without diagnosis of hypertension; J45.909 Unspecified asthma, uncomplicated; K21.9 Gastro-esophageal reflux disease without esophagitis; Z79.899 Other long term (current) drug therapy; Z88.0 Allergy status to penicillin; Z88.8 Allergy status to other drugs, medicaments and biological substances
CPT/HCPCS: 71046; 99284; J7512; 80048; 83735; 84484; 85025; 93005

== ENCOUNTER 2022-01-21 17:38 | Emergency (ER) | payer OTHER ==
[2022-01-21 18:23] VITALS: BP 139/84; PULSE 89; RESP 20; TEMP 98.2
--- NOTE | 2022-01-21 19:15 | XR ---
EXAMINATION TYPE: XR chest 2V DATE OF EXAM: 01/21/2022 6:59 PM COMPARISON: Chest radiographs from 12/30/2021 TECHNIQUE: XR chest 2V Frontal and lateral views of the chest. CLINICAL INDICATION:Male, 36 years old with history of upper resp symptoms; FINDINGS: Lungs/Pleura: There is no evidence of pleural effusion, focal consolidation, or pneumothorax. Pulmonary vascularity: Unremarkable. Heart/mediastinum: Cardiomediastinal silhouette is unremarkable. Musculoskeletal: No acute osseous pathology. IMPRESSION: No acute cardiopulmonary disease/process.
--- NOTE | 2022-01-21 19:57 | ED ---
URI HPI - General Chief Complaint: Upper Respiratory Infection Stated Complaint: Cough, throat burning Time Seen by Provider: 01/21/22 18:29 Source: patient Mode of arrival: ambulatory Limitations: no limitations - History of Present Illness Initial Comments: Patient is a 36-year-old male presenting with chief complaint of cough. Patient has history of asthma. Patient woke this morning with a cough. Also states that he is having a burning sensation in his throat. No difficulty breathing or swallowing. No chest pain. No palpitations or weakness. No fever or chills. Patient states that the cough is nonproductive. He admits to headache and fatigue. No abdominal pain, nausea, vomiting. - Related Data Home Medications Medication Instructions Recorded Confirmed Ibuprofen [Motrin Ib] 800 mg PO Q8H PRN 10/01/20 11/29/21 Previous Rx's Medication Instructions Recorded Pantoprazole [Protonix] 40 mg PO DAILY 30 Days #30 tab 10/29/21 Cyclobenzaprine [Flexeril] 10 mg PO TID PRN #20 tab 11/21/21 Fluticasone Nasal [place] [Flonase 2 spray EA NOSTRIL DAILY #16 gm 11/29/21 Nasal [place]] Loratadine [Alavert] 10 mg PO DAILY 30 Days #30 tab 11/29/21 Moxifloxacin HCl [Avelox] 400 mg PO DAILY 10 Days #10 tab 11/29/21 Ondansetron Odt [Zofran Odt] 4 mg PO Q8HR PRN #20 tab 12/02/21 hydrOXYzine HCL 25 mg PO Q8HR PRN #20 tab 12/31/21 methylPREDNISolone Dose Pack 4 mg PO DIRECTED #21 tab 12/31/21 [Medrol Dose Pack] Albuterol Sulfate [Albuterol 2 puff PO Q6H PRN #8.5 gm 01/21/22 Sulfate Hfa] Nirmatrelvir/Ritonavir [Paxlovid 1 each PO BID #1 pack 01/21/22 300-100 mg Pack (Eua)] Allergies Allergy/AdvReac Type Severity Reaction Status Date / Time amoxicillin Allergy Unknown Verified 12/30/21 22:50 Penicillins Allergy Rash/Hives Verified 12/30/21 22:50 diphenhydramine HCl AdvReac Tongue Verified 12/30/21 22:50 [From Benadryl] Swells Review of Systems ROS Statement: Those systems with pertinent positive or pertinent negative responses have been documented in the HPI. ROS Other: All systems not noted in ROS Statement are negative. Past Medical History Past Medical History: Asthma, GERD/Reflux Additional Past Medical History / Comment(s): cellulitis, COvid History of Any Multi-Drug Resistant Organisms: None Reported Past Surgical History: Appendectomy Additional Past Surgical History / Comment(s): vericose vein stripping Past Psychological History: No Psychological Hx Reported Smoking Status: Never smoker Past Alcohol Use History: Occasional Past Drug Use History: None Reported General Exam Limitations: no limitations General appearance: alert, in no apparent distress Head exam: Present: atraumatic, normocephalic, normal inspection Eye exam: Present: normal appearance, PERRL, EOMI. Absent: scleral icterus, conjunctival injection, periorbital swelling Neck exam: Present: normal inspection, full ROM Respiratory exam: Present: normal lung sounds bilaterally. Absent: respiratory distress, wheezes, rales, rhonchi, stridor Cardiovascular Exam: Present: regular rate, normal rhythm, normal heart sounds. Absent: systolic murmur, diastolic murmur, rubs, gallop, clicks Neurological exam: Present: alert, oriented X3, CN II-XII intact Psychiatric exam: Present: normal affect, normal mood Skin exam: Present: warm, dry, intact, normal color. Absent: rash Course Vital Signs 01/21/22 18:20 Temperature 98.2 F Pulse Rate 89 Respiratory 20 Rate Blood Pressure 139/84 O2 Sat by Pulse 99 Oximetry Medical Decision Making - Medical Decision Making Patient is a 36-year-old male history of asthma presenting with chief complaint of cough. Cough is accompanied by sore throat, fatigue, and headache. Physical examination is unremarkable. Patient did test positive for Covid. Chest x-ray shows no acute process. Patient is educated on quarantine guidelines and supportive treatment. Due to his history of asthma he will be prescribed Paxlovid, a refill for his albuterol inhaler is also sent to his pharmacy. Follow-up with PCP. Report back to ER with any new or worsening symptoms. Discussed return parameters and answered all questions. Patient conveyed verbal understanding and agreed to the plan. I discussed this case in detail with my attending Dr. Tsang. - Lab Data Lab Results 01/21/22 01/21/22 Range/Units 18:24 18:24 Coronavirus (PCR) Detected A (Not Detectd) Influenza Type A RNA Not Detected (Not Detectd) Influenza Type B (PCR) Not Detected (Not Detectd) Disposition Clinical Impression: COVID Disposition: HOME SELF-CARE Condition: Good Instructions (If sedation given, give patient instructions): COVID-19 (Coronavirus Disease 2019) (ED) Additional Instructions: Quarantine for 5 days, if after these 5 days you are symptom-free and without a fever for 24 hours, you may then go back in public while wearing a mask at all times for an additional 5 days. You must be symptom and fever free for 24 hours before ending quarantine. Take medication as prescribed. Report back to ER with any new or worsening symptoms. Follow-up with PCP. Prescriptions: Albuterol Sulfate [Albuterol Sulfate Hfa] 2 puff PO Q6H PRN #8.5 gm PRN Reason: Shortness Of Breath Nirmatrelvir/Ritonavir [Paxlovid 300-100 mg Pack (Eua)] 1 each PO BID #1 pack Is patient prescribed a controlled substance at d/c from ED?: No Referrals: Oli Metcalf DO [Primary Care Provider] - 1-2 days Time of Disposition: 19:58
== END 2022-01-21 20:08 | disposition home or self-care (01) ==
LOC: EC 17:38
DX: U07.1 COVID-19 (principal); J45.909 Unspecified asthma, uncomplicated; K21.9 Gastro-esophageal reflux disease without esophagitis; Z88.0 Allergy status to penicillin; Z88.8 Allergy status to other drugs, medicaments and biological substances; Z79.899 Other long term (current) drug therapy
CPT/HCPCS: 71046; 87502; 87635; 99284

== ENCOUNTER 2022-01-24 19:00 | Emergency (ER) | payer OTHER ==
--- NOTE | 2022-01-24 19:57 | XR ---
EXAMINATION TYPE: XR chest 2V DATE OF EXAM: 01/24/2022 COMPARISON: Chest x-ray 01/21/2022 HISTORY: Chest pain, Covid positive TECHNIQUE: Frontal and lateral views of the chest are obtained. FINDINGS: There is no focal air space opacity, pleural effusion, or pneumothorax seen. The cardiac silhouette size is within normal limits. The osseous structures are intact. There is elevation righ t hemidiaphragm. Suspect some prominence of pulmonary artery. IMPRESSION: No acute cardiopulmonary process.
[2022-01-24 20:03] LABS: MCH 30.4 pg (25.0-35.0); MCHC 34.4 g/dL (31.0-37.0); MCV 88.4 fL (80.0-100.0); Mean Platelet Volume 7.9; Platelet Count 128 k/uL (150-450); RBC 3.62 m/uL (4.30-5.90); RDW 12.3 % (11.5-15.5); WBC 3.8 k/uL (3.8-10.6)
[2022-01-24 20:04] LABS: Partial Thromboplastin Time 23.8 sec (22.0-30.0); Prothrombin Time 10.8 sec (9.0-12.0)
[2022-01-24 20:05] LABS: ALT 23 U/L (4-49); AST 29 U/L (17-59); African American GFR (CKD) >90 (>60 ml/min/1.73 sqM); Albumin 4.4 g/dL (3.5-5.0); Alkaline Phosphatase 74 U/L (38-126); Anion Gap 12 mmol/L; Blood Urea Nitrogen 17 mg/dL (9-20); Calcium 9.2 mg/dL (8.4-10.2); Carbon Dioxide 24 mmol/L (22-30); Chloride 102 mmol/L (98-107); Glucose 93 mg/dL (74-99); Lipase 84 U/L (23-300); Magnesium 2.1 mg/dL (1.6-2.3); Non-African American GFR(CKD) >90 (>60 ml/min/1.73 sqM); Potassium 4.2 mmol/L (3.5-5.1); Sodium 138 mmol/L (137-145); Total Bilirubin 0.9 mg/dL (0.2-1.3); Total Protein 6.9 g/dL (6.3-8.2)
[2022-01-24 20:32] LABS: Band Neutrophils % 1 %; Eosinophils # (M) 0.19 k/uL (0-0.7); Lymphocytes # (M) 0.76 k/uL (1.0-4.8); Monocytes # (M) 0.34 k/uL (0-1.0); Neutrophils % (M) 66 %; Nucleated Red Blood Cells 0 /100 WBC (0-0); RBC Morphology Normal; Total Cells Counted 200
--- NOTE | 2022-01-24 20:53 | ED ---
Chest Pain HPI - General Chief Complaint: Chest Pain Stated Complaint: Chest Pain Time Seen by Provider: 01/24/22 19:20 Source: patient, EMS Mode of arrival: EMS Limitations: no limitations - History of Present Illness Initial Comments: 36-year-old male presents to emergency room with chest pain. He was seen in the emergency department on Friday for a cough. He tested positive for Covid. He was started on Paxlovid as he has a history of asthma. States he's been taking medications as directed and they have caused him to have a poor taste in his m outh. Today the patient was urinating in the bathroom when he had sudden onset of sharp shooting pain on the left side of his chest. He called his sister who recommended that he call an ambulance. Chest pain is worse with inspiration. Denies history of DVT or PE. Denies ripping or tearing patient was back. No family history of sudden cardiac . Does have a large family history of coronary disease and congestive heart failure. No calf pain or swelling. Denies fevers. No nausea or vomiting. Patient does not take any medications for his pain. Has mild shortness of breath. States he's been using his inhaler as directed. No relieving, precipitating mopping factors - Related Data Home Medications Medication Instructions Recorded Confirmed Ibuprofen [Motrin Ib] 800 mg PO Q8H PRN 10/01/20 01/25/22 Fluticasone Nasal [place] [Flonase 2 spray EA NOSTRIL DAILY PRN 01/25/22 01/25/22 Nasal [place]] Nirmatrelvir/Ritonavir [Paxlovid 1 dose PO BID 01/25/22 01/25/22 300-100 mg Pack (Eua)] Previous Rx's Medication Instructions Recorded Cyclobenzaprine [Flexeril] 10 mg PO TID PRN #20 tab 11/21/21 Loratadine [Alavert] 10 mg PO DAILY 30 Days #30 tab 11/29/21 Ondansetron Odt [Zofran Odt] 4 mg PO Q8HR PRN #20 tab 12/02/21 hydrOXYzine HCL 25 mg PO Q8HR PRN #20 tab 12/31/21 Albuterol Sulfate [Albuterol 2 puff PO Q6H PRN #8.5 gm 01/21/22 Sulfate Hfa] Naproxen [Naprosyn] 500 mg PO BID PRN #30 tab 01/24/22 Ipratropium-Albuterol Nebulize 3 ml INHALATION Q4-6H PRN #90 ml 01/25/22 [Duoneb 0.5 mg-3 mg/3 ml Soln] dexAMETHasone [Decadron] 6 mg PO Q24H 5 Days #5 tablet 01/25/22 hydrOXYzine HCL [Atarax] 50 mg PO Q6HR PRN #15 tablet 01/26/22 Allergies Allergy/AdvReac Type Severity Reaction Status Date / Time amoxicillin Allergy Unknown Verified 01/29/22 13:04 Penicillins Allergy Rash/Hives Verified 01/29/22 13:04 diphenhydramine HCl AdvReac Tongue Verified 01/29/22 13:04 [From Benadryl] Jay Review of Systems ROS Statement: Those systems with pertinent positive or pertinent negative responses have been documented in the HPI. ROS Other: All systems not noted in ROS Statement are negative. EKG Findings - EKG Comments: EKG Findings:: EKG demonstrates sinus rhythm with a rate of 78. MN interval 178. QRS 98. QTC of 413. No acute ST segment elevations or depressions concerning for ischemic changes Past Medical History Past Medical History: Asthma, GERD/Reflux Additional Past Medical History / Comment(s): cellulitis, COvid History of Any Multi-Drug Resistant Organisms: None Reported Past Surgical History: Appendectomy Additional Past Surgical History / Comment(s): vericose vein stripping Past Psychological History: No Psychological Hx Reported Smoking Status: Never smoker Past Alcohol Use History: Occasional Past Drug Use History: None Reported General Exam Limitations: no limitations General appearance: alert, in no apparent distress Head exam: Present: atraumatic, normocephalic, normal inspection Eye exam: Present: normal appearance, PERRL, EOMI. Absent: scleral icterus, conjunctival injection, periorbital swelling ENT exam: Present: normal exam, mucous membranes moist Neck exam: Present: normal inspection. Absent: tenderness, meningismus, lymphadenopathy Respiratory exam: Present: normal lung sounds bilaterally. Absent: respiratory distress, wheezes, rales, rhonchi, stridor Cardiovascular Exam: Present: regular rate, normal rhythm, normal heart sounds. Absent: systolic murmur, diastolic murmur, rubs, gallop, clicks GI/Abdominal exam: Present: soft, normal bowel sounds. Absent: distended, tenderness, guarding, rebound, rigid Extremities exam: Present: normal inspection, full ROM, normal capillary refill. Absent: tenderness, pedal edema, joint swelling, calf tenderness Back exam: Present: normal inspection Neurological exam: Present: alert, oriented X3, CN II-XII intact Psychiatric exam: Present: normal affect, normal mood Skin exam: Present: warm, dry, intact, normal color. Absent: rash Course Vital Signs 01/24/22 01/24/22 01/24/22 19:05 19:07 19:11 Temperature 98.4 F 97.9 F Pulse Rate 101 H 104 H Pulse Rate [ 101 H Pulse Oximetery ] Respiratory 17 20 Rate Blood Pressure 122/96 O2 Sat by Pulse 98 100 Oximetry 01/24/22 20:57 Temperature 98.0 F Pulse Rate 91 Pulse Rate [ Pulse Oximetery ] Respiratory 16 Rate Blood Pressure 121/68 O2 Sat by Pulse 97 Oximetry Chest Pain MDM - MDM Upon arrival patient was placed into room 12. Thorough history and physical exam was performed. IV access is established and laboratory studies were conducted. D-dimer is negative. Troponin is negative. Chest x-ray demonstrates no acute cardio opponent process. Patient was offered something for pain control however refused. He is reevaluated and is pain-free at this time. I did discuss diagnosis, differential treatment options. At this time the patient will be discharged home. He is to continue taking the Paxlovid and using his inhaler. I will place him on Naprosyn for his pleuritic chest pain. He is to follow up with his doctor in 2-4 days and return for any new or worsening symptoms. Patient agreeable discharged home in stable condition Disposition Clinical Impression: Chest pain, Anterior pleuritic pain, COVID-19 Disposition: HOME SELF-CARE Condition: Stable Instructions (If sedation given, give patient instructions): Coronavirus Disease 2019 (COVID-19), Chest Pain (ED) Additional Instructions: Please take the medication as needed for pain control. Follow up with her doctor and return for any new or worsening symptoms. Continue taking the Paxlovid until it is gone Prescriptions: Naproxen [Naprosyn] 500 mg PO BID PRN #30 tab PRN Reason: Pain Is patient prescribed a controlled substance at d/c from ED?: No Referrals: Dixon,Oli, DO [Primary Care Provider] - 1-2 days Time of Disposition: 20:52
[2022-01-24 20:58] VITALS: BP 121/68; PULSE 91; RESP 16; TEMP 98
== END 2022-01-24 21:03 | disposition home or self-care (01) ==
LOC: EC 19:00
DX: U07.1 COVID-19 (principal); R07.81 Pleurodynia; J45.909 Unspecified asthma, uncomplicated; K21.9 Gastro-esophageal reflux disease without esophagitis; Z88.0 Allergy status to penicillin; Z88.8 Allergy status to other drugs, medicaments and biological substances; Z79.51 Long term (current) use of inhaled steroids; Z79.899 Other long term (current) drug therapy
CPT/HCPCS: 36415; 71046; 80053; 83690; 83735; 84484; 85025; 85379; 85610; 85730; 93005; 99285

== ENCOUNTER 2022-01-25 08:40 | Emergency (ER) | payer OTHER ==
[2022-01-25 09:00] VITALS: RESP 20
[2022-01-25] MEDS ORDERED: DEXAMETHASONE SOD PHOSPHATE 10 MG/ML 1 ML VIAL IM STA (09:11)
[2022-01-25] MEDS ORDERED: IPRATROPIUM-ALBUTEROL 3 ML NEB INHALATION STA ×2 (09:12→09:42)
--- NOTE | 2022-01-25 09:26 | ED ---
SOB HPI - General Chief Complaint: Upper Respiratory Infection Stated Complaint: revisit - chest pain Time Seen by Provider: 01/25/22 09:09 Source: patient, RN notes reviewed Mode of arrival: ambulatory Limitations: no limitations - History of Present Illness Initial Comments: This is a 36-year-old male who presents to the emergency department for diffic ulty breathing. Patient did test positive for COVID 4 days ago and was given a prescription for Paxlovid. He was also evaluated here yesterday, at which time he had blood work looking for signs of a pulmonary embolus, which was negative. He was given a prescription for naproxen, which he states he has not picked up yet. He does have a history of asthma, and uses an inhaler with little relief. He has a nebulizer machine at home, however he has no medication or hosing and has not been able to use this. He has not had a breathing treatment or steroids during the 2 emergency room visits he has had this week. States that the coughing is much better, however when he does have it, it is very productive. Denies any fevers, chills, sore throat, palpitations, abdominal pain, nausea, vomiting, diarrhea, back pain, or headaches. MD Complaint: shortness of breath, cough, chest pain Onset/Timin -: days(s) Known History Of: asthma Associated Symptoms: sputum production - Related Data Home Medications Medication Instructions Recorded Confirmed Ibuprofen [Motrin Ib] 800 mg PO Q8H PRN 10/01/20 01/25/22 Fluticasone Nasal [place] [Flonase 2 spray EA NOSTRIL DAILY PRN 01/25/22 01/25/22 Nasal [place]] Nirmatrelvir/Ritonavir [Paxlovid 1 dose PO BID 01/25/22 01/25/22 300-100 mg Pack (Eua)] Previous Rx's Medication Instructions Recorded Cyclobenzaprine [Flexeril] 10 mg PO TID PRN #20 tab 11/21/21 Loratadine [Alavert] 10 mg PO DAILY 30 Days #30 tab 11/29/21 Ondansetron Odt [Zofran Odt] 4 mg PO Q8HR PRN #20 tab 12/02/21 hydrOXYzine HCL 25 mg PO Q8HR PRN #20 tab 12/31/21 Albuterol Sulfate [Albuterol 2 puff PO Q6H PRN #8.5 gm 01/21/22 Sulfate Hfa] Naproxen [Naprosyn] 500 mg PO BID PRN #30 tab 01/24/22 Ipratropium-Albuterol Nebulize 3 ml INHALATION Q4-6H PRN #90 ml 01/25/22 [Duoneb 0.5 mg-3 mg/3 ml Soln] dexAMETHasone [Decadron] 6 mg PO Q24H 5 Days #5 tablet 01/25/22 Allergies Allergy/AdvReac Type Severity Reaction Status Date / Time amoxicillin Allergy Unknown Verified 01/25/22 11:09 Penicillins Allergy Rash/Hives Verified 01/25/22 11:09 diphenhydramine HCl AdvReac Tongue Verified 01/25/22 11:09 [From Benadryl] Jay Review of Systems ROS Statement: Those systems with pertinent positive or pertinent negative responses have been documented in the HPI. ROS Other: All systems not noted in ROS Statement are negative. Past Medical History Past Medical History: Asthma, GERD/Reflux Additional Past Medical History / Comment(s): cellulitis, COvid History of Any Multi-Drug Resistant Organisms: None Reported Past Surgical History: Appendectomy Additional Past Surgical History / Comment(s): vericose vein stripping Past Psychological History: No Psychological Hx Reported Smoking Status: Never smoker Past Alcohol Use History: Occasional Past Drug Use History: None Reported General Exam Limitations: no limitations General appearance: alert, in no apparent distress Head exam: Present: atraumatic, normocephalic, normal inspection Respiratory exam: Present: wheezes, decreased breath sounds, prolonged expiratory Cardiovascular Exam: Present: regular rate, normal rhythm, normal heart sounds. Absent: systolic murmur, diastolic murmur, rubs, gallop, clicks Neurological exam: Present: alert, oriented X3, CN II-XII intact Psychiatric exam: Present: normal affect, normal mood Skin exam: Present: warm, dry, intact, normal color. Absent: rash Course Vital Signs 01/25/22 01/25/22 01/25/22 08:56 08:59 10:57 Temperature 97.9 F Pulse Rate 101 H 98 Respiratory 20 20 Rate Blood Pressure 144/87 O2 Sat by Pulse 98 Oximetry 01/25/22 11:29 Temperature 98.3 F Pulse Rate 88 Respiratory 20 Rate Blood Pressure 128/78 O2 Sat by Pulse 97 Oximetry Medical Decision Making - Medical Decision Making This is a 36-year-old male who presents to the emergency department for difficulty breathing and chest tightness. Patient was given an albuterol breathing treatment and 10 mg of Decadron. I did try to order a DuoNeb, however because he is COVID positive, he was only able to use the albuterol inhaler. He was also given a dose of Xanax and propranolol, because he said that he had a lot of shaking that he was not able to control. This offered little to no benefit to his symptoms, however he states that the shaking has been fairly constant since the symptoms began and he is not very worried about it. This may have also been exacerbated by the albuterol. Prescription for DuoNeb and additional 5 day course of prednisone was provided to help his symptoms. He will follow up with his primary care provider next week for reevaluation. Return precautions reviewed in depth, the patient is instructed to return to the emergency department with any new, worsening, or concerning symptoms. Patient verbalized understanding. This case was discussed in detail with the attending ED physician. Presentation, findings, and treatment plan discussed in detail as well. Disposition Clinical Impression: Asthma exacerbation, COVID-19 Disposition: HOME SELF-CARE Instructions (If sedation given, give patient instructions): Asthma (ED), How to Use a Nebulizer (ED), COVID-19 (Coronavirus Disease 2019) (ED), How to Recover from COVID-19 at Home (ED) Additional Instructions: Return to the emergency department with any new, worsening, or concerning symptoms. Take the Decadron daily for 5 days and use the breathing treatments every 4-6 hours as needed for shortness of breath or coughing. Continue the Paxlovid as prescribed. Prescriptions: dexAMETHasone [Decadron] 6 mg PO Q24H 5 Days #5 tablet Ipratropium-Albuterol Nebulize [Duoneb 0.5 mg-3 mg/3 ml Soln] 3 ml INHALATION Q4-6H PRN #90 ml PRN Reason: Shortness Of Breath Is patient prescribed a controlled substance at d/c from ED?: No Referrals: Oli Metcalf DO [Primary Care Provider] - 1-2 days
[2022-01-25] MEDS ORDERED: ALBUTEROL HFA INHALER INHALATION STA (09:44)
[2022-01-25] MEDS ORDERED: PROPRANOLOL 20 MG TAB PO STA (10:20)
[2022-01-25] MEDS ORDERED: ALPRAZolam 0.25 MG TAB PO STA (10:20)
[2022-01-25 11:31] VITALS: BP 128/78; PULSE 88; TEMP 98.3
== END 2022-01-25 11:29 | disposition home or self-care (01) ==
LOC: EC 08:40
DX: U07.1 COVID-19 (principal); J45.901 Unspecified asthma with (acute) exacerbation; K21.9 Gastro-esophageal reflux disease without esophagitis; Z79.51 Long term (current) use of inhaled steroids; Z79.899 Other long term (current) drug therapy; Z88.0 Allergy status to penicillin; Z88.8 Allergy status to other drugs, medicaments and biological substances
CPT/HCPCS: 94640; 99284; 96372; J1100

== ENCOUNTER 2022-01-26 08:24 | Emergency (ER) | payer OTHER ==
[2022-01-26 08:35] VITALS: BP 132/80; PULSE 93; RESP 16; TEMP 98.3
--- NOTE | 2022-01-26 09:23 | ED ---
General Adult HPI - General Chief complaint: Recheck/Abnormal Lab/Rx Stated complaint: Covid +, Shakiness Time Seen by Provider: 01/26/22 08:37 Source: patient Mode of arrival: ambulatory Limitations: no limitations - History of Present Illness Initial comments: Patient is a 36-year-old male presenting with chief complaint of anxiety. Patient tested positive for Covid on 01/21. He has been taking Paxlovid at home, he states that after he takes his evening dose he feels anxious and starts trembling. Patient was recently taking albuterol every 4 hours as opposed to when needed. He also was recently prescribed a steroid. He denies any chest pain or difficulty breathing. No nausea, vomiting, abdominal pain. No fever or chills. Patient states that his Covid symptoms have improved. No diarrhea, hematochezia, melena. Patient has recently had multiple visits for similar complaints, he was seen here earlier last night with the same complaint of anxiety and trembling. - Related Data Home Medications Medication Instructions Recorded Confirmed Ibuprofen [Motrin Ib] 800 mg PO Q8H PRN 10/01/20 01/25/22 Fluticasone Nasal [place] [Flonase 2 spray EA NOSTRIL DAILY PRN 01/25/22 01/25/22 Nasal [place]] Nirmatrelvir/Ritonavir [Paxlovid 1 dose PO BID 01/25/22 01/25/22 300-100 mg Pack (Eua)] Previous Rx's Medication Instructions Recorded Cyclobenzaprine [Flexeril] 10 mg PO TID PRN #20 tab 11/21/21 Loratadine [Alavert] 10 mg PO DAILY 30 Days #30 tab 11/29/21 Ondansetron Odt [Zofran Odt] 4 mg PO Q8HR PRN #20 tab 12/02/21 hydrOXYzine HCL 25 mg PO Q8HR PRN #20 tab 12/31/21 Albuterol Sulfate [Albuterol 2 puff PO Q6H PRN #8.5 gm 01/21/22 Sulfate Hfa] Naproxen [Naprosyn] 500 mg PO BID PRN #30 tab 01/24/22 Ipratropium-Albuterol Nebulize 3 ml INHALATION Q4-6H PRN #90 ml 01/25/22 [Duoneb 0.5 mg-3 mg/3 ml Soln] dexAMETHasone [Decadron] 6 mg PO Q24H 5 Days #5 tablet 01/25/22 hydrOXYzine HCL [Atarax] 50 mg PO Q6HR PRN #15 tablet 01/26/22 Allergies Allergy/AdvReac Type Severity Reaction Status Date / Time amoxicillin Allergy Unknown Verified 01/26/22 08:33 Penicillins Allergy Rash/Hives Verified 01/26/22 08:33 diphenhydramine HCl AdvReac Tongue Verified 01/26/22 08:33 [From Benadryl] Jay Review of Systems ROS Statement: Those systems with pertinent positive or pertinent negative responses have been documented in the HPI. ROS Other: All systems not noted in ROS Statement are negative. Past Medical History Past Medical History: Asthma, GERD/Reflux Additional Past Medical History / Comment(s): cellulitis, COvid History of Any Multi-Drug Resistant Organisms: None Reported Past Surgical History: Appendectomy Additional Past Surgical History / Comment(s): vericose vein stripping Past Psychological History: No Psychological Hx Reported Smoking Status: Never smoker Past Alcohol Use History: Occasional Past Drug Use History: None Reported General Exam Limitations: no limitations General appearance: alert, in no apparent distress Head exam: Present: atraumatic, normocephalic, normal inspection Eye exam: Present: normal appearance, PERRL, EOMI. Absent: scleral icterus, conjunctival injection, periorbital swelling Neck exam: Present: normal inspection, full ROM Respiratory exam: Present: normal lung sounds bilaterally. Absent: respiratory distress, wheezes, rales, rhonchi, stridor Cardiovascular Exam: Present: regular rate, normal rhythm, normal heart sounds. Absent: systolic murmur, diastolic murmur, rubs, gallop, clicks Neurological exam: Present: alert, oriented X3, CN II-XII intact Psychiatric exam: Present: normal affect, normal mood Skin exam: Present: warm, dry, intact, normal color. Absent: rash Course Vital Signs 01/26/22 08:33 Temperature 98.3 F Pulse Rate 93 Respiratory 16 Rate Blood Pressure 132/80 O2 Sat by Pulse 100 Oximetry Medical Decision Making - Medical Decision Making Patient is a 36-year-old male presenting with chief complaint of anxiety and trembling. Patient recently tested positive for Covid, Covid symptoms have improved. He was recently taking albuterol and steroid. On examination heart and lungs are clear to auscultation. Patient has had multiple negative workups here in the ER. He is given hydroxyzine for his anxiety. Instructed to stop taking Paxlovid as he feels it is causing this anxiety. Only take albuterol when needed.Follow-up with PCP. Report back to ER with any new or worsening symptoms. Discussed return parameters and answered all questions. Patient conveyed verbal understanding and agreed to the plan. I discussed this case in detail with my attending Dr. Hernandez. - Lab Data Lab Results 01/26/22 Range/Units 09:38 POC Glucose (mg/dL) 99 (70-110) mg/dL POC Glu Weaving Inspector ID Chano Shukla Disposition Clinical Impression: Anxiety Disposition: HOME SELF-CARE Condition: Good Instructions (If sedation given, give patient instructions): Anxiety (ED), Anxiolysis in Adults (ED) Additional Instructions: Follow-up with PCP. Report back to ER with any new or worsening symptoms. Take medication as prescribed. Stay well-hydrated and get plenty of rest. Prescriptions: hydrOXYzine HCL [Atarax] 50 mg PO Q6HR PRN #15 tablet PRN Reason: Anxiety Is patient prescribed a controlled substance at d/c from ED?: No Referrals: Oli Metcalf DO [Primary Care Provider] - 1-2 days Time of Disposition: 09:21
[2022-01-26] MEDS ORDERED: hydrOXYzine HCL 25 MG TAB PO STA (09:25)
[2022-01-26 09:40] LABS: Glucose,Whole Blood 99 mg/dL (70-110)
== END 2022-01-26 09:59 | disposition home or self-care (01) ==
LOC: EC 08:24
DX: F41.9 Anxiety disorder, unspecified (principal); J45.909 Unspecified asthma, uncomplicated; Z79.899 Other long term (current) drug therapy; Z88.0 Allergy status to penicillin; Z88.8 Allergy status to other drugs, medicaments and biological substances
CPT/HCPCS: 36415

== ENCOUNTER 2022-01-28 09:36 | Emergency (ER) | payer OTHER ==
[2022-01-28 09:48] VITALS: BP 148/95; PULSE 79; RESP 20; TEMP 97.8
--- NOTE | 2022-01-28 10:25 | ED ---
Recheck HPI - General Chief Complaint: Recheck/Abnormal Lab/Rx Stated Complaint: body shakes - post COVID Source: patient, RN notes reviewed Mode of arrival: ambulatory Limitations: no limitations - History of Present Illness Initial Comments: Patient is a 36-year-old male presenting to the emergency room with complaints of continued fatigue worsened by recent Atarax prescription which he was given for anxiety here at the emergency room recently.. He reports that he has not taken her accident approximately 12 hours but continues to have significant fatigue. He states that he has had significant fatigue since kai Covid and being diagnosed on 01/21/2022. He reports that all other symptoms such as shortness of breath, fevers and cough have resolved but his fatigue persists. He states that he was having "shakiness" from Paxlovid so he stopped taking it. He does not received any Covid vaccinations since his initial vaccination in 2020. He is not taking any vitamin B or C supplements. He denies any other complaints or concerns at this time. He has a past medical history significant for asthma and GERD. - Related Data Home Medications Medication Instructions Recorded Confirmed Ibuprofen [Motrin Ib] 800 mg PO Q8H PRN 10/01/20 01/25/22 Fluticasone Nasal [place] [Flonase 2 spray EA NOSTRIL DAILY PRN 01/25/22 01/25/22 Nasal [place]] Nirmatrelvir/Ritonavir [Paxlovid 1 dose PO BID 01/25/22 01/25/22 300-100 mg Pack (Eua)] Previous Rx's Medication Instructions Recorded Cyclobenzaprine [Flexeril] 10 mg PO TID PRN #20 tab 11/21/21 Loratadine [Alavert] 10 mg PO DAILY 30 Days #30 tab 11/29/21 Ondansetron Odt [Zofran Odt] 4 mg PO Q8HR PRN #20 tab 12/02/21 hydrOXYzine HCL 25 mg PO Q8HR PRN #20 tab 12/31/21 Albuterol Sulfate [Albuterol 2 puff PO Q6H PRN #8.5 gm 01/21/22 Sulfate Hfa] Naproxen [Naprosyn] 500 mg PO BID PRN #30 tab 01/24/22 Ipratropium-Albuterol Nebulize 3 ml INHALATION Q4-6H PRN #90 ml 01/25/22 [Duoneb 0.5 mg-3 mg/3 ml Soln] dexAMETHasone [Decadron] 6 mg PO Q24H 5 Days #5 tablet 01/25/22 hydrOXYzine HCL [Atarax] 50 mg PO Q6HR PRN #15 tablet 01/26/22 Allergies Allergy/AdvReac Type Severity Reaction Status Date / Time amoxicillin Allergy Unknown Verified 01/28/22 09:43 Penicillins Allergy Rash/Hives Verified 01/28/22 09:43 diphenhydramine HCl AdvReac Tongue Verified 01/28/22 09:43 [From Benadryl] Jay Review of Systems ROS Statement: Those systems with pertinent positive or pertinent negative responses have been documented in the HPI. ROS Other: All systems not noted in ROS Statement are negative. Past Medical History Past Medical History: Asthma, GERD/Reflux Additional Past Medical History / Comment(s): cellulitis, Covid History of Any Multi-Drug Resistant Organisms: None Reported Past Surgical History: Appendectomy Additional Past Surgical History / Comment(s): vericose vein stripping Past Psychological History: No Psychological Hx Reported Smoking Status: Never smoker Past Alcohol Use History: Occasional Past Drug Use History: None Reported General Exam General appearance: alert, in no apparent distress, obese Head exam: Present: atraumatic, normocephalic, normal inspection Eye exam: Present: normal appearance, PERRL, EOMI. Absent: scleral icterus, conjunctival injection, periorbital swelling ENT exam: Present: normal exam, mucous membranes moist Neck exam: Present: normal inspection Respiratory exam: Absent: respiratory distress, accessory muscle use Cardiovascular Exam: Present: regular rate GI/Abdominal exam: Absent: distended Extremities exam: Present: normal inspection. Absent: pedal edema Back exam: Present: normal inspection Neurological exam: Present: alert, oriented X3, CN II-XII intact Psychiatric exam: Present: normal affect, normal mood Skin exam: Present: warm, dry, intact, normal color. Absent: rash Course Vital Signs 01/28/22 09:41 Temperature 97.8 F Pulse Rate 79 Respiratory 20 Rate Blood Pressure 148/95 O2 Sat by Pulse 99 Oximetry Medical Decision Making - Medical Decision Making 36-year-old male presenting to the emergency room with complaints of fatigue ongoing since diagnosed with Covid one week ago. No other symptoms. Reports worsened by Atarax. No indication for any diagnostic testing or laboratory studies. Long discussion with patient regarding Covid symptoms and recovery. Advised to stop Atarax. Encouraged use of vitamins and minerals to help with fatigue including vitamin B12 and vitamin C and zinc. Advised follow-up with his primary care provider. Return parameters to the emergency room reviewed at length. Case discussed with Dr. Hernandez. Disposition Clinical Impression: COVID-19, Fatigue Disposition: HOME SELF-CARE Condition: Good Instructions (If sedation given, give patient instructions): Fatigue (ED), COVID-19 (Coronavirus Disease 2019) (ED) Additional Instructions: Please quarantine for 5 days after testing positive and restart quarantine if symptoms worsen. Please utilize Tylenol as needed for fevers and pain. Taking vitamin C, Zinc, vitamin D 50 mcg, and melatonin may help symptom recovery. Is patient prescribed a controlled substance at d/c from ED?: No Referrals: Oli Metcalf DO [Primary Care Provider] - 1-2 days Time of Disposition: 10:24
== END 2022-01-28 10:33 | disposition home or self-care (01) ==
LOC: EC 09:36
DX: U07.1 COVID-19 (principal); J45.909 Unspecified asthma, uncomplicated; K21.9 Gastro-esophageal reflux disease without esophagitis; Z79.51 Long term (current) use of inhaled steroids; Z79.899 Other long term (current) drug therapy; Z88.0 Allergy status to penicillin; Z88.8 Allergy status to other drugs, medicaments and biological substances
CPT/HCPCS: 99283

== ENCOUNTER 2022-01-29 12:59 | Emergency (ER) | payer OTHER ==
[2022-01-29 13:04] VITALS: TEMP 98.4
[2022-01-29 13:41] LABS: ALT 22 U/L (4-49); AST 21 U/L (17-59); African American GFR (CKD) >90 (>60 ml/min/1.73 sqM); Albumin 4.3 g/dL (3.5-5.0); Alkaline Phosphatase 71 U/L (38-126); Anion Gap 11 mmol/L; Blood Urea Nitrogen 21 mg/dL (9-20); Calcium 8.8 mg/dL (8.4-10.2); Carbon Dioxide 24 mmol/L (22-30); Chloride 103 mmol/L (98-107); Glucose 96 mg/dL (74-99); Non-African American GFR(CKD) >90 (>60 ml/min/1.73 sqM); Sodium 138 mmol/L (137-145); Total Bilirubin 0.8 mg/dL (0.2-1.3); Total Protein 6.4 g/dL (6.3-8.2)
[2022-01-29 13:54] LABS: Basophils # (A) 0.1 k/uL (0-0.2); Basophils % (A) 1 %; Eosinophils # (A) 0.1 k/uL (0-0.7); Eosinophils % (A) 1 %; HCT 49.7 % (39.0-53.0); Lymphocytes # (A) 0.9 k/uL (1.0-4.8); Lymphocytes % (A) 12 %; MCH 29.8 pg (25.0-35.0); MCHC 34.6 g/dL (31.0-37.0); MCV 86.1 fL (80.0-100.0); Mean Platelet Volume 8.2; Monocytes # (A) 0.5 k/uL (0-1.0); Monocytes % (A) 6 %; Neutrophils # (A) 5.7 k/uL (1.3-7.7); Neutrophils % (A) 77 %; Platelet Count 233 k/uL (150-450); RBC 5.78 m/uL (4.30-5.90); RDW 12.4 % (11.5-15.5); WBC 7.5 k/uL (3.8-10.6)
[2022-01-29 13:56] LABS: HGB 17.2 gm/dL (13.0-17.5)
[2022-01-29 14:00] LABS: Partial Thromboplastin Time 22.4 sec (22.0-30.0); Prothrombin Time 10.6 sec (9.0-12.0)
--- NOTE | 2022-01-29 14:05 | XR ---
EXAMINATION TYPE: XR chest 2V DATE OF EXAM: 01/29/2022 2:02 PM COMPARISON: Chest radiographs from 01/24/2022 TECHNIQUE: XR chest 2V Frontal and lateral views of the chest. CLINICAL INDICATION:Male, 36 years old with history of Pain; FINDINGS: Lungs/Pleura: There is no evidence of pleural effusion, focal consolidation, or pneumothorax. Pulmonary vascularity: Unremarkable. Heart/mediastinum: Cardiomediastinal silhouette is unremarkable. Musculoskeletal: No acute osseous pathology. IMPRESSION: No acute cardiopulmonary disease/process. No significant change from prior examination.
--- NOTE | 2022-01-29 16:13 | ED ---
General Adult HPI - General Chief complaint: Chest Pain Stated complaint: chest pain, lt arm numbness Time Seen by Provider: 01/29/22 15:59 Source: patient, RN notes reviewed, old records reviewed Mode of arrival: ambulatory Limitations: no limitations - History of Present Illness Initial comments: 36-year-old male presenting for reevaluation. Patient was diagnosed with coronavirus about one week ago. He was started on outpatient medications, prescribed zinc, vitamin D, vitamin C. His been compliant with medications. He has been eating and drinking although he admits that he has not been drinking as much as he should. He developed a subtle left-sided chest discomfort with cough early this morning about 10 hours prior to arrival. No central radiating chest pain. Patient denies dyspnea. He states he has an appointment with his primary care physician tomorrow. He does admit to having anxiety. - Related Data Home Medications Medication Instructions Recorded Confirmed Ibuprofen [Motrin Ib] 800 mg PO Q8H PRN 10/01/20 01/25/22 Fluticasone Nasal [place] [Flonase 2 spray EA NOSTRIL DAILY PRN 01/25/22 01/25/22 Nasal [place]] Nirmatrelvir/Ritonavir [Paxlovid 1 dose PO BID 01/25/22 01/25/22 300-100 mg Pack (Eua)] Previous Rx's Medication Instructions Recorded Cyclobenzaprine [Flexeril] 10 mg PO TID PRN #20 tab 11/21/21 Loratadine [Alavert] 10 mg PO DAILY 30 Days #30 tab 11/29/21 Ondansetron Odt [Zofran Odt] 4 mg PO Q8HR PRN #20 tab 12/02/21 hydrOXYzine HCL 25 mg PO Q8HR PRN #20 tab 12/31/21 Albuterol Sulfate [Albuterol 2 puff PO Q6H PRN #8.5 gm 01/21/22 Sulfate Hfa] Naproxen [Naprosyn] 500 mg PO BID PRN #30 tab 01/24/22 Ipratropium-Albuterol Nebulize 3 ml INHALATION Q4-6H PRN #90 ml 01/25/22 [Duoneb 0.5 mg-3 mg/3 ml Soln] dexAMETHasone [Decadron] 6 mg PO Q24H 5 Days #5 tablet 01/25/22 hydrOXYzine HCL [Atarax] 50 mg PO Q6HR PRN #15 tablet 01/26/22 Allergies Allergy/AdvReac Type Severity Reaction Status Date / Time amoxicillin Allergy Unknown Verified 01/29/22 13:04 Penicillins Allergy Rash/Hives Verified 01/29/22 13:04 diphenhydramine HCl AdvReac Tongue Verified 01/29/22 13:04 [From Benadryl] Jay Review of Systems ROS Statement: Those systems with pertinent positive or pertinent negative responses have been documented in the HPI. ROS Other: All systems not noted in ROS Statement are negative. Past Medical History Past Medical History: Asthma, GERD/Reflux Additional Past Medical History / Comment(s): cellulitis, Covid History of Any Multi-Drug Resistant Organisms: None Reported Past Surgical History: Appendectomy Additional Past Surgical History / Comment(s): vericose vein stripping Past Psychological History: No Psychological Hx Reported Smoking Status: Never smoker Past Alcohol Use History: Occasional Past Drug Use History: None Reported General Exam Limitations: no limitations General appearance: alert, in no apparent distress Head exam: Present: atraumatic, normocephalic Eye exam: Present: normal appearance, PERRL ENT exam: Present: normal exam Neck exam: Present: normal inspection. Absent: tenderness Respiratory exam: Present: rhonchi (Scattered rhonchi). Absent: respiratory distress Cardiovascular Exam: Present: regular rate, normal rhythm GI/Abdominal exam: Present: soft. Absent: distended, tenderness, guarding Extremities exam: Present: normal inspection, normal capillary refill. Absent: pedal edema Neurological exam: Present: alert, oriented X3, CN II-XII intact. Absent: motor sensory deficit Psychiatric exam: Present: normal affect, normal mood Skin exam: Present: warm, dry, intact. Absent: cyanosis, diaphoretic Course Vital Signs 01/29/22 13:02 Temperature 98.4 F Pulse Rate 112 H Respiratory 22 Rate Blood Pressure 112/74 O2 Sat by Pulse 99 Oximetry EKG Findings - EKG Comments: EKG Findings:: Sinus rhythm T-wave inversion in the inferior lead 3, rate of 90, PA interval 169, QRS duration 88, QTC 389, no ST segment elevation, no change compared to prior. Medical Decision Making - Medical Decision Making Well-appearing male 36 years old with Covid who has nonspecific chest discomfort. EKG is sinus without change from prior to ST segment elevation. Chest x-ray clear. Laboratory testing is unremarkable. The patient will increase hydration, continue treatment as prescribed and follow with the his primary care physician tomorrow as planned. - Lab Data Result diagrams: 01/29/22 13:18 01/29/22 13:18 Lab Results 01/29/22 01/29/22 01/29/22 Range/Units 13:18 13:18 13:18 WBC 7.5 (3.8-10.6) k/uL RBC 5.78 (4.30-5.90) m/uL Hgb 17.2 D (13.0-17.5) gm/dL Hct 49.7 (39.0-53.0) % MCV 86.1 (80.0-100.0) fL MCH 29.8 (25.0-35.0) pg MCHC 34.6 (31.0-37.0) g/dL RDW 12.4 (11.5-15.5) % Plt Count 233 (150-450) k/uL MPV 8.2 Neutrophils % 77 % Lymphocytes % 12 % Monocytes % 6 % Eosinophils % 1 % Basophils % 1 % Neutrophils # 5.7 (1.3-7.7) k/uL Lymphocytes # 0.9 L (1.0-4.8) k/uL Monocytes # 0.5 (0-1.0) k/uL Eosinophils # 0.1 (0-0.7) k/uL Basophils # 0.1 (0-0.2) k/uL PT 10.6 (9.0-12.0) sec INR 1.0 (<1.2) APTT 22.4 (22.0-30.0) sec Sodium 138 (137-145) mmol/L Potassium 4.0 (3.5-5.1) mmol/L Chloride 103 (98-107) mmol/L Carbon Dioxide 24 (22-30) mmol/L Anion Gap 11 mmol/L BUN 21 H (9-20) mg/dL Creatinine 0.94 (0.66-1.25) mg/dL Est GFR (CKD-EPI)AfAm >90 (>60 ml/min/1.73 sqM) Est GFR (CKD-EPI)NonAf >90 (>60 ml/min/1.73 sqM) Glucose 96 (74-99) mg/dL Calcium 8.8 (8.4-10.2) mg/dL Total Bilirubin 0.8 (0.2-1.3) mg/dL AST 21 (17-59) U/L ALT 22 (4-49) U/L Alkaline Phosphatase 71 (38-126) U/L Troponin I (0.000-0.034) ng/mL Total Protein 6.4 (6.3-8.2) g/dL Albumin 4.3 (3.5-5.0) g/dL 01/29/22 Range/Units 13:18 WBC (3.8-10.6) k/uL RBC (4.30-5.90) m/uL Hgb (13.0-17.5) gm/dL Hct (39.0-53.0) % MCV (80.0-100.0) fL MCH (25.0-35.0) pg MCHC (31.0-37.0) g/dL RDW (11.5-15.5) % Plt Count (150-450) k/uL MPV Neutrophils % % Lymphocytes % % Monocytes % % Eosinophils % % Basophils % % Neutrophils # (1.3-7.7) k/uL Lymphocytes # (1.0-4.8) k/uL Monocytes # (0-1.0) k/uL Eosinophils # (0-0.7) k/uL Basophils # (0-0.2) k/uL PT (9.0-12.0) sec INR (<1.2) APTT (22.0-30.0) sec Sodium (137-145) mmol/L Potassium (3.5-5.1) mmol/L Chloride (98-107) mmol/L Carbon Dioxide (22-30) mmol/L Anion Gap mmol/L BUN (9-20) mg/dL Creatinine (0.66-1.25) mg/dL Est GFR (CKD-EPI)AfAm (>60 ml/min/1.73 sqM) Est GFR (CKD-EPI)NonAf (>60 ml/min/1.73 sqM) Glucose (74-99) mg/dL Calcium (8.4-10.2) mg/dL Total Bilirubin (0.2-1.3) mg/dL AST (17-59) U/L ALT (4-49) U/L Alkaline Phosphatase (38-126) U/L Troponin I <0.012 (0.000-0.034) ng/mL Total Protein (6.3-8.2) g/dL Albumin (3.5-5.0) g/dL Disposition Clinical Impression: COVID-19 Disposition: HOME SELF-CARE Condition: Good Instructions (If sedation given, give patient instructions): COVID-19 (Coronavirus Disease 2019) (ED) Is patient prescribed a controlled substance at d/c from ED?: No Referrals: Oli Metcalf DO [Primary Care Provider] - 1-2 days Time of Disposition: 16:13
[2022-01-29 16:20] VITALS: BP 142/78; PULSE 88; RESP 20
== END 2022-01-29 16:21 | disposition home or self-care (01) ==
LOC: EC 12:59
DX: U07.1 COVID-19 (principal); J45.909 Unspecified asthma, uncomplicated; K21.9 Gastro-esophageal reflux disease without esophagitis; Z79.51 Long term (current) use of inhaled steroids; Z79.899 Other long term (current) drug therapy; Z88.0 Allergy status to penicillin; Z88.8 Allergy status to other drugs, medicaments and biological substances
CPT/HCPCS: 36415; 71046; 80053; 84484; 85025; 85610; 85730; 99285

== ENCOUNTER 2022-02-21 01:40 | Observation (INO) | payer OTHER ==
--- NOTE | 2022-02-21 03:11 | ED ---
Chest Pain HPI - General Chief Complaint: Chest Pain Stated Complaint: elevated heart rate Time Seen by Provider: 02/21/22 02:25 Source: patient, RN notes reviewed, old records reviewed Mode of arrival: ambulatory Limitations: no limitations - History of Present Illness MD Complaint: chest pain -: days(s) Onset: during rest, during exertion Pain Location: substernal, left chest Pain Radiation: none Severity: moderate Quality: aching, sharp, dull Consistency: intermittent Worsens With: nothing Context: recent illness Anginal Symptoms: sense of impending doom Other Symptoms: cough, palpitations Treatments Prior to Arrival: none - Related Data Home Medications Medication Instructions Recorded Confirmed Ibuprofen [Motrin Ib] 800 mg PO Q8H PRN 10/01/20 01/25/22 Fluticasone Nasal [place] [Flonase 2 spray EA NOSTRIL DAILY PRN 01/25/22 01/25/22 Nasal [place]] Nirmatrelvir/Ritonavir [Paxlovid 1 dose PO BID 01/25/22 01/25/22 300-100 mg Pack (Eua)] Previous Rx's Medication Instructions Recorded Cyclobenzaprine [Flexeril] 10 mg PO TID PRN #20 tab 11/21/21 Loratadine [Alavert] 10 mg PO DAILY 30 Days #30 tab 11/29/21 Ondansetron Odt [Zofran Odt] 4 mg PO Q8HR PRN #20 tab 12/02/21 hydrOXYzine HCL 25 mg PO Q8HR PRN #20 tab 12/31/21 Albuterol Sulfate [Albuterol 2 puff PO Q6H PRN #8.5 gm 01/21/22 Sulfate Hfa] Naproxen [Naprosyn] 500 mg PO BID PRN #30 tab 01/24/22 Ipratropium-Albuterol Nebulize 3 ml INHALATION Q4-6H PRN #90 ml 01/25/22 [Duoneb 0.5 mg-3 mg/3 ml Soln] dexAMETHasone [Decadron] 6 mg PO Q24H 5 Days #5 tablet 01/25/22 hydrOXYzine HCL [Atarax] 50 mg PO Q6HR PRN #15 tablet 01/26/22 Allergies Allergy/AdvReac Type Severity Reaction Status Date / Time amoxicillin Allergy Unknown Verified 02/21/22 01:48 Penicillins Allergy Rash/Hives Verified 02/21/22 01:48 diphenhydramine HCl AdvReac Tongue Verified 02/21/22 01:48 [From Halina] Jay Review of Systems ROS Statement: Those systems with pertinent positive or pertinent negative responses have been documented in the HPI. ROS Other: All systems not noted in ROS Statement are negative. EKG Findings - EKG Comments: EKG Findings:: EKG is sinus 67 VA 171 QRS 100 QTc 406 Past Medical History Past Medical History: Asthma, GERD/Reflux Additional Past Medical History / Comment(s): cellulitis, Covid 06/2021, 01/2022 History of Any Multi-Drug Resistant Organisms: None Reported Past Surgical History: Appendectomy Additional Past Surgical History / Comment(s): vericose vein stripping Past Psychological History: No Psychological Hx Reported Smoking Status: Never smoker Past Alcohol Use History: Occasional Past Drug Use History: None Reported General Exam Limitations: no limitations General appearance: alert, in no apparent distress, anxious Head exam: Present: atraumatic, normocephalic, normal inspection Eye exam: Present: normal appearance, PERRL, EOMI. Absent: scleral icterus, conjunctival injection, periorbital swelling ENT exam: Present: normal exam, mucous membranes moist Neck exam: Present: normal inspection. Absent: tenderness, meningismus, lymphadenopathy Respiratory exam: Present: normal lung sounds bilaterally. Absent: respiratory distress, wheezes, rales, rhonchi, stridor Cardiovascular Exam: Present: regular rate, normal rhythm, normal heart sounds. Absent: systolic murmur, diastolic murmur, rubs, gallop, clicks GI/Abdominal exam: Present: soft, normal bowel sounds. Absent: distended, tenderness, guarding, rebound, rigid Extremities exam: Present: normal inspection, full ROM, normal capillary refill. Absent: tenderness, pedal edema, joint swelling, calf tenderness Back exam: Present: normal inspection Neurological exam: Present: alert, oriented X3, CN II-XII intact Psychiatric exam: Present: normal affect, normal mood Skin exam: Present: warm, dry, intact, normal color. Absent: rash Course Vital Signs 02/21/22 01:48 Temperature 97.2 F L Pulse Rate 82 Respiratory 18 Rate Blood Pressure 138/88 O2 Sat by Pulse 100 Oximetry Disposition Clinical Impression: Chest pain, Anterior pleuritic pain, Fatigue Disposition: ADMITTED IP TO THIS HOSP Condition: Fair Is patient prescribed a controlled substance at d/c from ED?: No Referrals: Oli Metcalf DO [Primary Care Provider] - 1-2 days Time of Disposition: 04:20
[2022-02-21] MEDS ORDERED: KETOROLAC 15 MG/ML 1 ML VIAL IVP STA (03:27)
[2022-02-21] MEDS ORDERED: SODIUM CHLORIDE 0.9% 1,000 ML IV STA (03:27)
[2022-02-21] MEDS ORDERED: MORPHINE SULFATE 4 MG/ML SYRINGE IV STA (03:27)
[2022-02-21] MEDS ORDERED: MORPHINE SULFATE 4 MG/ML SYRINGE IV PRN (03:43)
[2022-02-21] MEDS ORDERED: ACETAMINOPHEN TAB 325 MG TAB PO PRN (03:43)
[2022-02-21] MEDS ORDERED: ONDANSETRON 4 MG/2 ML VIAL IVP PRN (03:43)
[2022-02-21] MEDS ORDERED: NALOXONE 0.4 MG/ML 1 ML VIAL IV PRN (03:43)
[2022-02-21] MEDS ORDERED: KETOROLAC 15 MG/ML 1 ML VIAL IVP PRN (03:43)
[2022-02-21] MEDS ORDERED: SODIUM CHLORIDE 0.9% 1,000 ML IV SCH (03:45)
[2022-02-21 03:55] LABS: Basophils # (A) 0.1 k/uL (0-0.2); Basophils % (A) 1 %; Eosinophils # (A) 0.1 k/uL (0-0.7); Eosinophils % (A) 2 %; HCT 45.7 % (39.0-53.0); HGB 15.7 gm/dL (13.0-17.5); Lymphocytes # (A) 1.3 k/uL (1.0-4.8); Lymphocytes % (A) 23 %; MCH 30.1 pg (25.0-35.0); MCHC 34.2 g/dL (31.0-37.0); Mean Platelet Volume 7.8; Monocytes # (A) 0.6 k/uL (0-1.0); Monocytes % (A) 10 %; Neutrophils # (A) 3.5 k/uL (1.3-7.7); Neutrophils % (A) 62 %; Platelet Count 210 k/uL (150-450); RBC 5.19 m/uL (4.30-5.90); RDW 12.3 % (11.5-15.5); WBC 5.7 k/uL (3.8-10.6)
[2022-02-21 04:06] LABS: Magnesium 2.2 mg/dL (1.6-2.3); Potassium 4.5 mmol/L (3.5-5.1); Total Bilirubin 0.8 mg/dL (0.2-1.3); Total Protein 6.1 g/dL (6.3-8.2)
[2022-02-21 04:11] LABS: Partial Thromboplastin Time 23.2 sec (22.0-30.0); Prothrombin Time 10.5 sec (9.0-12.0)
--- NOTE | 2022-02-21 04:35 | XR ---
EXAMINATION TYPE: XR chest 1V portable DATE OF EXAM: 02/21/2022 COMPARISON: 01/29/2022 HISTORY: Pain TECHNIQUE: Single view FINDINGS: Heart is normal. Lungs are clear of consolidation. There are no hilar masses. Costophrenic angles are clear. Bony thorax is intact. IMPRESSION: No active cardiopulmonary disease. No change.
[2022-02-21] MEDS ORDERED: IPRATROPIUM-ALBUTEROL 3 ML NEB INHALATION PRN (05:08)
[2022-02-21] MEDS ORDERED: CYCLOBENZAPRINE 10 MG TAB PO PRN (05:08)
[2022-02-21] MEDS ORDERED: ALBUTEROL NEBULIZED 2.5 MG/3 ML INHALATION PRN (05:08)
--- NOTE | 2022-02-21 05:49 | P.HPIM ---
History of Present Illness H&P Date: 02/21/22 Chief Complaint: chest pain 36 year old male with astham and gerd patient had covid and took a month off work , he just returned to work, at [employer] , and today while at work, he experienced sudden onset chest pain. severe sharp pain mid chest "ripping up" all the way to the left shoulder , associated with heavy breathing and palpitations, some sweating, no dizziness, no lightheadedness, no nausea or vomiting. he denies any recent travel or hospital stay. he visited the ED multiple times last month , when he had COVID . he is currently chest pain free. denies any other symptoms. family history of CAD at relatively young age, his younger sister with CHF during the summer he denies any exercise intolerance. he denies tobacco smoking (quit 3 months ago) occasional marijuana, and denies alcohol EKG showed T wave inversion lead III d dimer negative rest of his blood work and CXR unremarkable Review of Systems Pertinent positives as noted in HPI. All other systems were reviewed and are negative Past Medical History Past Medical History: Asthma, GERD/Reflux Additional Past Medical History / Comment(s): cellulitis, Covid 06/2021, 01/2022 History of Any Multi-Drug Resistant Organisms: None Reported Past Surgical History: Appendectomy Additional Past Surgical History / Comment(s): vericose vein stripping Past Psychological History: No Psychological Hx Reported Smoking Status: Never smoker Past Alcohol Use History: Occasional Past Drug Use History: None Reported - Past Family History Family Family Medical History: Coronary Artery Disease (CAD) Medications and Allergies Home Medications Medication Instructions Recorded Confirmed Type Ibuprofen [Motrin Ib] 800 mg PO Q8H PRN 10/01/20 01/25/22 History Cyclobenzaprine [Flexeril] 10 mg PO TID PRN #20 tab 11/21/21 01/25/22 Rx Loratadine [Alavert] 10 mg PO DAILY 30 Days #30 tab 11/29/21 01/25/22 Rx Ondansetron Odt [Zofran Odt] 4 mg PO Q8HR PRN #20 tab 12/02/21 01/25/22 Rx hydrOXYzine HCL 25 mg PO Q8HR PRN #20 tab 12/31/21 01/25/22 Rx Albuterol Sulfate [Albuterol 2 puff PO Q6H PRN #8.5 gm 01/21/22 01/25/22 Rx Sulfate Hfa] Naproxen [Naprosyn] 500 mg PO BID PRN #30 tab 01/24/22 01/25/22 Rx Fluticasone Nasal [place] [Flonase 2 spray EA NOSTRIL DAILY PRN 01/25/22 01/25/22 History Nasal [place]] Ipratropium-Albuterol Nebulize 3 ml INHALATION Q4-6H PRN #90 ml 01/25/22 Rx [Duoneb 0.5 mg-3 mg/3 ml Soln] Nirmatrelvir/Ritonavir [Paxlovid 1 dose PO BID 01/25/22 01/25/22 History 300-100 mg Pack (Eua)] dexAMETHasone [Decadron] 6 mg PO Q24H 5 Days #5 tablet 01/25/22 Rx hydrOXYzine HCL [Atarax] 50 mg PO Q6HR PRN #15 tablet 01/26/22 Rx Allergies Allergy/AdvReac Type Severity Reaction Status Date / Time amoxicillin Allergy Unknown Verified 02/21/22 01:48 Penicillins Allergy Rash/Hives Verified 02/21/22 01:48 diphenhydramine HCl AdvReac Tongue Verified 02/21/22 01:48 [From Benadryl] Jay Physical Exam Vitals: Vital Signs Temp Pulse Resp BP Pulse Ox 02/21/22 01:48 97.2 F L 82 18 138/88 100 Intake and Output 02/20/22 02/20/22 02/21/22 14:59 22:59 06:59 Other: Weight 120.202 kg Constitutional: No acute distress, conversant, pleasant Eyes: Anicteric sclerae, moist conjunctiva, Pupils equal round reactive to light ENMT: NC/AT Oropharynx clear, no erythema, or exudates Neck: Supple, no masses, or JVD No carotid bruits No thyromegaly Lungs: Clear to auscultation Clear to percussion Normal respiratory effort, no accessory muscle use Cardiovascular: Heart regular in rate and rhythm, No murmurs, gallops, or rubs No peripheral edema Abdominal: Soft Nontender, no guarding, rebound or rigidity Abdomen moving with respiration Normoactive bowel sounds No hepatomegaly, No splenomegaly No palpable mass No abdominal wall hernia noted Skin: Normal temperature, tone, texture, turgor No induration No subcutaneous nodules No rash, lesions No ulcers Extremities: No digital cyanosis No clubbing Pedal pulses intact and symmetrical Radial pulses intact and symmetrical No calf tenderness Psychiatric: Alert and oriented to person, place and time Appropriate affect fair judgement Neuro Muscles Strength 5/5 in all 4 extremities Sensation to light touch grossly present throughout Cranial nerves II-XII grossly intact No focal sensory deficits Lymphatics: no palpable cervical or supraclavicular lymph nodes Results CBC & Chem 7: 02/21/22 03:47 02/21/22 03:47 Labs: Abnormal Lab Results - Last 24 Hours (Table) 02/21/22 Range/Units 03:47 BUN 25 H (9-20) mg/dL Total Protein 6.1 L (6.3-8.2) g/dL Assessment and Plan Assessment: atypical chest pain rule out ACS EKG Twave inversion lead III CXR no acute pathology trops negative X2 cardiac monitor technician monitor vital signs ASA, statin cardiology consult A1c, lipid panel , TSH pain control recent covid infection , D dimer negative intermittent asthma, inhalers as needed GERD , PPI full code DVT PPX heparin sc tid
[2022-02-21] MEDS ORDERED: PANTOPRAZOLE 40 MG TABLET PO SCH (07:30)
[2022-02-21] MEDS ORDERED: HEPARIN SODIUM,PORCINE/PF 5,000 UNIT/0.5 ML SYRINGE SQ SCH (08:00)
[2022-02-21] MEDS ORDERED: NIRMATRELVIR PO SCH (09:00)
[2022-02-21] MEDS ORDERED: RITONAVIR PO SCH (09:00)
[2022-02-21] MEDS ORDERED: [UNRECOGNIZED DRUG - OTHER] PO SCH (09:00)
[2022-02-21 11:00] LABS: LDL Cholesterol,Calculated 79.5 mg/dL (0.0-131.0); VLDL Calculation 11.62 mg/dL (5.00-40.00)
--- NOTE | 2022-02-21 11:12 | P.CRDCN ---
History of Present Illness Consult date: 02/21/22 Requesting physician: Radha Barreto Reason for Consult (text): tachycardia, chest pain Chief complaint: heart racing History of present illness: Is a pleasant 36-year-old gentleman who has a past medical history of GERD and asthma. Was diagnosed with COVID S month and since that time has been having issues with chest discomfort and rapid heartbeat. Has apparently been seen and evaluated several times at [facility] emergency department and discharged home. He is a current nonsmoker with a one-year history of smoking quit in November. Presented to the emergency department mostly with complaints of feeling his heart racing. He is also been having intermittent episodes of chest discomfort since kai Covid it does not seem to be clearly related to to activity. EKG on admission showed normal sinus rhythm with a heart rate in the 60s. He's been sinus rhythm on the monitor and his heart rate has been stable. Chest x-ray showed no active cardiopulmonary disease. Troponins have been negative 3. Upon examination patient is overall feeling fairly well. Denies any current complaints of palpitations or chest discomfort. He has had some mild shortness of breath at times since having Covid last month. Denies any lower extremity edema but does have varicose veins. Denies any nausea, vomiting. Does have issues with reflux which is controlled with medications. He is average and his activity level. Past Medical History Past Medical History: Asthma, GERD/Reflux Additional Past Medical History / Comment(s): cellulitis, Covid 06/2021, 01/2022 History of Any Multi-Drug Resistant Organisms: None Reported Past Surgical History: Appendectomy Additional Past Surgical History / Comment(s): vericose vein stripping Past Psychological History: No Psychological Hx Reported Smoking Status: Never smoker Past Alcohol Use History: Occasional Past Drug Use History: None Reported - Past Family History Family Family Medical History: Coronary Artery Disease (CAD) Medications and Allergies Home Medications Medication Instructions Recorded Confirmed Type Fluticasone Nasal [place] [Flonase 2 spray EA NOSTRIL DAILY PRN 01/25/22 02/21/22 History Nasal [place]] Acetaminophen Tab [Tylenol Tab] 500 mg PO Q6H PRN 02/21/22 02/21/22 History Albuterol Sulfate [Albuterol 2 puff PO RT-Q6H PRN 02/21/22 02/21/22 History Sulfate Hfa] Ascorbic Acid [Vitamin C] 500 mg PO DAILY 02/21/22 02/21/22 History Beclomethasone Dip 80 Mcg/Puff 2 puff INHALATION DIRECTED 02/21/22 02/21/22 History [Qvar 80 mcg] Cyanocobalamin (Vitamin B-12) 1,000 mcg PO DAILY 02/21/22 02/21/22 History [Vitamin B-12] Pantoprazole Sodium [Protonix] 40 mg PO DAILY 02/21/22 02/21/22 History Zinc Sulfate 50 mg PO DAILY 02/21/22 02/21/22 History Allergies Allergy/AdvReac Type Severity Reaction Status Date / Time amoxicillin Allergy Rash/Hives Verified 02/21/22 08:09 diphenhydramine HCl Allergy Tongue Verified 02/21/22 08:09 [From Benadryl] Swells Penicillins Allergy Rash/Hives Verified 02/21/22 08:09 Physical Exam Vitals: Vital Signs Temp Pulse Resp BP Pulse Ox 02/21/22 07:30 67 18 131/93 100 02/21/22 06:00 60 16 123/87 100 02/21/22 05:00 87 16 128/79 99 02/21/22 04:00 65 16 128/86 99 02/21/22 03:00 88 16 184/98 99 02/21/22 01:48 97.2 F L 82 18 138/88 100 Intake and Output 02/20/22 02/21/22 02/21/22 22:59 06:59 14:59 Other: Weight 120.202 kg PHYSICAL EXAMINATION: This is a 36-year-old male in no apparent distress at the time of my examination. HEENT: Head is atraumatic, normocephalic. Pupils are equal, round. Sclerae anicteric. Conjunctivae are clear. Mucous membranes of the mouth are moist. Neck is supple. There is no elevated jugular venous pressure. No carotid bruit is heard. CHEST EXAMINATION: Clear to auscultation bilaterally. No wheezes rales or rhonchi. Respirations even and nonlabored. HEART EXAMINATION: Heart regular, positive S1 and S2. No S3. No S4. No clicks, rubs or murmurs. ABDOMEN: Soft, nontender. Bowel sounds are heard. No organomegaly noted. EXTREMITIES: 2+ peripheral pulses with no evidence of peripheral edema and no calf tenderness noted. NEUROLOGIC EXAMINATION: Patient is awake, alert and oriented x3. Results 02/21/22 03:47 02/21/22 03:47 Cardiac Enzymes 02/21/22 02/21/22 02/21/22 Range/Units 03:47 03:47 06:26 AST 25 (17-59) U/L Troponin I <0.012 <0.012 (0.000-0.034) ng/mL 02/21/22 Range/Units 09:18 AST (17-59) U/L Troponin I <0.012 (0.000-0.034) ng/mL Coagulation 02/21/22 Range/Units 03:47 PT 10.5 (9.0-12.0) sec APTT 23.2 (22.0-30.0) sec Lipids 02/21/22 Range/Units 06:26 Triglycerides 58.10 (0.00-149.00) mg/dL Cholesterol 148.00 (0.00-200.00) mg/dL HDL Cholesterol 56.90 (40.00-60.00) mg/dL Cholesterol/HDL Ratio 2.60 Ratio CBC 02/21/22 Range/Units 03:47 WBC 5.7 (3.8-10.6) k/uL RBC 5.19 (4.30-5.90) m/uL Hgb 15.7 (13.0-17.5) gm/dL Hct 45.7 (39.0-53.0) % Plt Count 210 (150-450) k/uL Comprehensive Metabolic Panel 02/21/22 Range/Units 03:47 Sodium 138 (137-145) mmol/L Potassium 4.5 (3.5-5.1) mmol/L Chloride 103 (98-107) mmol/L Carbon Dioxide 29 (22-30) mmol/L BUN 25 H (9-20) mg/dL Creatinine 1.25 (0.66-1.25) mg/dL Glucose 81 (74-99) mg/dL Calcium 9.0 (8.4-10.2) mg/dL AST 25 (17-59) U/L ALT 28 (4-49) U/L Alkaline Phosphatase 69 (38-126) U/L Total Protein 6.1 L (6.3-8.2) g/dL Albumin 4.0 (3.5-5.0) g/dL Current Medications Generic Name Dose Route Start Last Admin Trade Name Freq PRN Reason Stop Dose Admin Acetaminophen 650 mg 02/21/22 03:43 Acetaminophen Tab 325 Mg Tab PO Q6HR PRN Mild Pain or Fever > 100.5 Albuterol Sulfate 2.5 mg 02/21/22 05:08 Albuterol Nebulized 2.5 Mg/3 Ml INHALATION RT-Q6H PRN Shortness Of Breath Albuterol/Ipratropium 3 ml 02/21/22 05:08 Ipratropium-Albuterol 3 Ml Neb INHALATION RT-Q4H PRN Shortness Of Breath Cyclobenzaprine HCl 10 mg 02/21/22 05:08 Cyclobenzaprine 10 Mg Tab PO TID PRN Spasms Heparin Sodium (Porcine) 5,000 unit 02/21/22 08:00 02/21/22 07:41 Heparin Sodium,Porcine/Pf 5,000 Unit/0.5 Ml Syringe SQ 5,000 unit Q8HR ARTEM Administration Sodium Chloride 1,000 mls @ 100 mls/hr 02/21/22 03:27 02/21/22 05:01 Saline 0.9% IV 02/21/22 13:26 Not Given .Q10H STA Sodium Chloride 1,000 mls @ 130 mls/hr 02/21/22 03:45 02/21/22 04:05 Saline 0.9% IV 130 mls/hr .Q7H42M ARTEM Administration Ketorolac Tromethamine 15 mg 02/21/22 03:43 Ketorolac 15 Mg/Ml 1 Ml Vial IVP 02/24/22 03:44 Q6HR PRN Moderate Pain (Scale 4 to 6) Morphine Sulfate 4 mg 02/21/22 03:43 Morphine Sulfate 4 Mg/Ml Syringe IV Q4HR PRN Severe Pain (Scale 7 to 10) Naloxone HCl 0.2 mg 02/21/22 03:43 Naloxone 0.4 Mg/Ml 1 Ml Vial IV Q2M PRN Opioid Reversal Ondansetron HCl 4 mg 02/21/22 03:43 Ondansetron 4 Mg/2 Ml Vial IVP Q8HR PRN Nausea And Vomiting Pantoprazole Sodium 40 mg 02/21/22 07:30 02/21/22 07:41 Pantoprazole 40 Mg Tablet PO 40 mg [id number] Administration Intake and Output 02/20/22 02/21/22 02/21/22 22:59 06:59 14:59 Other: Weight 120.202 kg 02/21/22 03:47 02/21/22 03:47 Assessment and Plan Assessment: 1 symptoms of chest discomfort and palpitations, no evidence of arrhythmia and acute coronary event has been ruled out. #2 history of asthma #3 recent COVID-19 infection #4 GERD Plan: From cardiology's perspective we'll obtain a 2-D echo with Doppler study to assess cardiac structure and function unfortunately he's eaten breakfast so no stress testing at this time. If there is no significant abnormalities noted on echocardiogram patient name be discharged home and follow-up in the office as an outpatient for outpatient stress testing. INFORMATION TECHNOLOGY SPECIALIST note has been reviewed, I agree with a documented findings and plan of care. Patient was seen and examined.
--- NOTE | 2022-02-21 12:28 | CA ---
Transthoracic Echo Report Name: Sundeep oSto Age: 36 Gender: M : 1985 Exam Date: 02/21/2022 08:20 Exam Location: [place] [facility] Ht (in): 68 Wt (lb): 265 Ordering Physician: Luis E Gunter DO Attending/Referring Phys: [id number], [employer] Esthela Samano, RD Procedure CPT: Indications: CP Cardiac Hx: Technical Quality: Fair Contrast 1: Total Dose (mL): Contrast 2: Total Dose (mL): MEASUREMENTS (Male / Female) Normal Values 2D ECHO LV Diastolic Diameter PLAX 5.6 cm 4.2 - 5.9 / 3.9 - 5.3 cm LV Systolic Diameter PLAX 3.8 cm IVS Diastolic Thickness 1.2 cm 0.6 - 1.0 / 0.6 - 0.9 cm LVPW Diastolic Thickness 1.2 cm 0.6 - 1.0 / 0.6 - 0.9 cm LV Relative Wall Thickness 0.4 RV Internal Dim ED PLAX 3.7 cm LA Systolic Diameter LX 3.9 cm 3.0 - 4.0 / 2.7 - 3.8 cm LA Volume 70.6 cm??? 18 - 58 / 22 - 52 cm??? M-MODE Aortic Root Diameter MM 4.2 cm MV E Point Septal Separation 0.7 cm AV Cusp Separation MM 2.8 cm DOPPLER AV Peak Velocity 124.8 cm/s AV Peak Gradient 6.2 mmHg MV Area PHT 3.4 cm??? Mitral E Point Velocity 97.3 cm/s Mitral A Point Velocity 66.4 cm/s Mitral E to A Ratio 1.5 MV Deceleration Time 224.2 ms MV E' Velocity 14.7 cm/s Mitral E to MV E' Ratio 6.6 TR Peak Velocity 241.8 cm/s TR Peak Gradient 23.4 mmHg Right Ventricular Systolic Press 28.4 mmHg FINDINGS Left Ventricle Left ventricular ejection fraction is estimated at 55-60 %. Left ventricular cavity size normal. Borderline left ventricular hypertrophy. Right Ventricle Mild right ventricular dilatation. Right Atrium Normal right atrial size. Left Atrium Moderately increased left atrial volume. No evidence for an atrial septal defect. Mitral Valve Structurally normal mitral valve. Trace to mild mitral regurgitation. Aortic Valve Trileaflet aortic valve. No aortic valve stenosis or regurgitation. Tricuspid Valve Structurally normal tricuspid valve. Trace to mild tricuspid regurgitation. Pulmonic Valve Structurally normal pulmonic valve. Pericardium Normal pericardium. No pericardial effusion. Aorta Mild aortic dilatation at the level of the sinuses of valsalva 42 mm CONCLUSIONS 1. Normal size and systolic function 2. Trace to Mild mitral and tricuspid regurgitation 3. Mildly dilated ascending aorta Previewed by: Dr. Susana López MD (Electronically Signed) Final Date: 21 February 2022 12:27
--- NOTE | 2022-02-21 16:30 | P.DS ---
Providers Date of admission: 02/21/22 03:44 Expected date of discharge: 02/21/22 Attending physician: Radha Barreto MD Consults: 02/21/22 03:43 Consult Physician Routine Consulting Provider: Susana López Consult Reason/Comments: cp Do you want consulting provider notified?: Yes Primary care physician: Oli Metcalf [facility] Hospital Course: Discharge Diagnosis: Noncardiac chest pain Recent COVID-19 GERD Asthma without exacerbation Hospital Course: Patient is a 36-year-old male with asthma, GERD, and recent COVID-19 pneumonia requiring one month off of work who presented with sudden onset chest pain on the left side. He described it as a severe ripping pain up into his left shoulder. In the ER he underwent an extensive evaluation. On arrival his vital signs within normal limits. Initial laboratory analysis showed a normal troponin and was otherwise unremarkable. Initial EKG showed T-wave inversion in leads 3 and aVF. He was admitted for further monitoring. Troponin remained negative. D-dimer was negative. He was seen by cardiology. He underwent an echocardiogram which showed a preserved ejection fraction and trace to mild MR and TR. He was determined stable for outpatient workup. Follow-up: Dr. Metcalf for noncardiac causes of chest pain, Dr. López in 1 week. Patient seen and examined at bedside. He is currently chest pain free. No nausea or vomiting. No other complaints currently. Vital signs reviewed and stable. General: nontoxic, no distress, appears at stated age Derm: warm, dry Head: atraumatic, normocephalic, symmetric Eyes: EOMI, no lid lag, anicteric sclera Mouth: no lip lesion, mucus membranes moist Cardiovascular: S1S2 reg, no murmur, positive posterior tibial pulse bilateral, Lungs: CTA bilateral, no rhonchi, no rales , no accessory muscle use Abdominal: soft, nontender to palpation, no guarding, no appreciable organomeg elenita Ext: no gross muscle atrophy, no edema, no contractures Neuro: CN II-XI grossly intact, no focal neuro deficits Psych: Alert, oriented, appears anxious A total of 25 minutes of time were spent preparing this complex discharge summary. Patient was discharged on 02/21/22. Patient Condition at Discharge: Fair Plan - Discharge Summary New Discharge Prescriptions: Continue Cyanocobalamin (Vitamin B-12) [Vitamin B-12] 1,000 mcg PO DAILY Pantoprazole Sodium [Protonix] 40 mg PO DAILY Albuterol Sulfate [Albuterol Sulfate Hfa] 2 puff PO RT-Q6H PRN PRN Reason: Shortness Of Breath Fluticasone Nasal [place] [Flonase Nasal [place]] 2 spray EA NOSTRIL DAILY PRN PRN Reason: Congestion Zinc Sulfate 50 mg PO DAILY Ascorbic Acid [Vitamin C] 500 mg PO DAILY Acetaminophen Tab [Tylenol] 500 mg PO Q6H PRN PRN Reason: Pain Beclomethasone Dip 80 Mcg/Puff [Qvar 80 mcg] 2 puff INHALATION DIRECTED Discharge Medication List Fluticasone Nasal [place] [Flonase Nasal [place]] 2 spray EA NOSTRIL DAILY PRN 01/25/22 [History] Acetaminophen Tab [Tylenol] 500 mg PO Q6H PRN 02/21/22 [History] Albuterol Sulfate [Albuterol Sulfate Hfa] 2 puff PO RT-Q6H PRN 02/21/22 [History] Ascorbic Acid [Vitamin C] 500 mg PO DAILY 02/21/22 [History] Beclomethasone Dip 80 Mcg/Puff [Qvar 80 mcg] 2 puff INHALATION DIRECTED 02/21/22 [History] Cyanocobalamin (Vitamin B-12) [Vitamin B-12] 1,000 mcg PO DAILY 02/21/22 [History] Pantoprazole Sodium [Protonix] 40 mg PO DAILY 02/21/22 [History] Zinc Sulfate 50 mg PO DAILY 02/21/22 [History] Follow up Appointment(s)/Referral(s): Susana López MD [STAFF PHYSICIAN] - 1 Week Oli Metcalf DO [Primary Care Provider] - 1-2 days Activity/Diet/Wound Care/Special Instructions: Activity: as tolerated Diet: regular Special Instructions: An Acute coronary event has been ruled out. Please ensure that you follow-up with Dr. Metcalf for other cause of chest pain including acid reflux, cost0 chondiritis, and anxiety. Please follow with Dr. López (cardiology) for further outpatient work-up. Discharge Disposition: HOME SELF-CARE
[2022-02-21 16:51] VITALS: BP 138/92; PULSE 72; RESP 19; TEMP 97.9
== END 2022-02-21 16:51 | disposition home or self-care (01) ==
LOC: EC 01:40 → 6NMEDSUR 03:44
PROVIDERS: ADMIT Internal Medicine; ATTEND Internal Medicine
DX: R07.89 Other chest pain (principal); R53.83 Other fatigue; R00.2 Palpitations; J45.20 Mild intermittent asthma, uncomplicated; K21.9 Gastro-esophageal reflux disease without esophagitis; Z86.16 Personal history of COVID-19; Z87.891 Personal history of nicotine dependence; Z79.899 Other long term (current) drug therapy; Z88.0 Allergy status to penicillin; Z82.49 Family history of ischemic heart disease and other diseases of the circulatory system
CPT/HCPCS: 96361; 96372; 96374; 99285; 36415; 93005; 93306; 85379; 83880; 80061; 80053; 84443; 83690; 83735; 84484; 85025; 85610; 85730; 83036; 71045; G0378; J1885; J1644

== ENCOUNTER 2022-02-24 18:10 | Emergency (ER) | payer OTHER ==
[2022-02-24 18:18] VITALS: TEMP 98.2
[2022-02-24] MEDS ORDERED: SODIUM CHLORIDE 0.9% 1,000 ML IV STA (18:41)
[2022-02-24] MEDS ORDERED: PANTOPRAZOLE 40 MG/10 ML VIAL IVP STA (18:42)
[2022-02-24] MEDS ORDERED: FAMOTIDINE 20 MG/2 ML VIAL IV STA (18:42)
[2022-02-24 19:17] LABS: Basophils # (A) 0.1 k/uL (0-0.2); Basophils % (A) 1 %; Eosinophils # (A) 0.2 k/uL (0-0.7); Eosinophils % (A) 2 %; HCT 45.1 % (39.0-53.0); HGB 15.4 gm/dL (13.0-17.5); Lymphocytes # (A) 1.1 k/uL (1.0-4.8); Lymphocytes % (A) 17 %; MCH 30.2 pg (25.0-35.0); MCV 88.8 fL (80.0-100.0); Mean Platelet Volume 7.9; Monocytes # (A) 0.6 k/uL (0-1.0); Monocytes % (A) 8 %; Neutrophils # (A) 4.5 k/uL (1.3-7.7); Neutrophils % (A) 68 %; Platelet Count 203 k/uL (150-450); RBC 5.08 m/uL (4.30-5.90); RDW 12.6 % (11.5-15.5); WBC 6.7 k/uL (3.8-10.6)
[2022-02-24 19:29] LABS: Partial Thromboplastin Time 22.4 sec (22.0-30.0); Prothrombin Time 10.7 sec (9.0-12.0)
--- NOTE | 2022-02-24 19:37 | XR ---
EXAMINATION TYPE: XR chest 2V DATE OF EXAM: 02/24/2022 COMPARISON: 02/21/2022 HISTORY: Chest pain TECHNIQUE: Two-view FINDINGS: Heart and mediastinum are normal. Lungs are clear. Diaphragm is normal. Bony thorax appears normal. IMPRESSION: Normal chest. No change.
[2022-02-24 19:45] LABS: ALT 26 U/L (4-49); AST 26 U/L (17-59); African American GFR (CKD) >90 (>60 ml/min/1.73 sqM); Albumin 4.1 g/dL (3.5-5.0); Alkaline Phosphatase 75 U/L (38-126); Anion Gap 8 mmol/L; Blood Urea Nitrogen 31 mg/dL (9-20); Calcium 8.9 mg/dL (8.4-10.2); Carbon Dioxide 26 mmol/L (22-30); Chloride 105 mmol/L (98-107); Glucose 101 mg/dL (74-99); Magnesium 2.2 mg/dL (1.6-2.3); Non-African American GFR(CKD) >90 (>60 ml/min/1.73 sqM); Potassium 4.5 mmol/L (3.5-5.1); Sodium 139 mmol/L (137-145); Total Bilirubin 0.6 mg/dL (0.2-1.3); Total Protein 6.1 g/dL (6.3-8.2)
--- NOTE | 2022-02-24 20:30 | ED ---
Chest Pain HPI - General Chief Complaint: Chest Pain Stated Complaint: chest pain Time Seen by Provider: 02/24/22 18:41 Source: patient Mode of arrival: ambulatory Limitations: no limitations - History of Present Illness Initial Comments: Patient is a 36-year-old male who presents to the emergency department with a chief complaint of chest burning. Patient states symptoms started after eating spaghetti. Symptoms lasted for about one hour. Describes pain as burning in the center of his chest. It is non radiational and nonexertional. States he began to feel very anxious and he checked his heart rate which was around 120. Denies palpitations, lightheadedness, dizziness. Denies history of arrhythmia. Patient states symptoms are almost resolved now. He denies shortness of breath, nausea, vomiting. He does admit to history of acid reflux which he takes Protonix 40 daily. Patient is well-known to our emergency department for evaluation of chest pain. He was recently admitted on 02/21 and cleared by cardiology. I did review his echocardiogram today which shows normal size and systolic function, EF 55-60%. There is trace to mild mitral and tricuspid regurgitation as well as mildly dilated ascending aorta. He was supposed to have a stress test however due to eating patient was instructed to have this performed outpatient. Patient has appointment next week. - Related Data Home Medications Medication Instructions Recorded Confirmed Fluticasone Nasal [place] [Flonase 2 spray EA NOSTRIL DAILY PRN 01/25/22 02/21/22 Nasal [place]] Acetaminophen Tab [Tylenol] 500 mg PO Q6H PRN 02/21/22 02/21/22 Albuterol Sulfate [Albuterol 2 puff PO RT-Q6H PRN 02/21/22 02/21/22 Sulfate Hfa] Ascorbic Acid [Vitamin C] 500 mg PO DAILY 02/21/22 02/21/22 Beclomethasone Dip 80 Mcg/Puff 2 puff INHALATION DIRECTED 02/21/22 02/21/22 [Qvar 80 mcg] Cyanocobalamin (Vitamin B-12) 1,000 mcg PO DAILY 02/21/22 02/21/22 [Vitamin B-12] Pantoprazole Sodium [Protonix] 40 mg PO DAILY 02/21/22 02/21/22 Zinc Sulfate 50 mg PO DAILY 02/21/22 02/21/22 Previous Rx's Medication Instructions Recorded Famotidine [Pepcid] 20 mg PO BID #28 tablet 02/24/22 Allergies Allergy/AdvReac Type Severity Reaction Status Date / Time amoxicillin Allergy Rash/Hives Verified 02/24/22 18:18 diphenhydramine HCl Allergy Tongue Verified 02/24/22 18:18 [From Benadryl] Swells Penicillins Allergy Rash/Hives Verified 02/24/22 18:18 Review of Systems ROS Statement: Those systems with pertinent positive or pertinent negative responses have been documented in the HPI. ROS Other: All systems not noted in ROS Statement are negative. EKG Findings - EKG Comments: EKG Findings:: EKG obtained at 18:21, interpreted by me. Sinus rhythm, no ST segment or T-wave abnormalities and normal access. Ventricular rate 90. GA interval 167. QRS duration 90. QTc 387 Past Medical History Past Medical History: Asthma, GERD/Reflux Additional Past Medical History / Comment(s): cellulitis, Covid 06/2021, 01/2022 History of Any Multi-Drug Resistant Organisms: None Reported Past Surgical History: Appendectomy Additional Past Surgical History / Comment(s): vericose vein stripping Past Psychological History: No Psychological Hx Reported Smoking Status: Never smoker Past Alcohol Use History: Occasional Past Drug Use History: None Reported - Past Family History Family Family Medical History: Coronary Artery Disease (CAD) General Exam Limitations: no limitations General appearance: alert, in no apparent distress Head exam: Present: atraumatic, normocephalic, normal inspection Eye exam: Present: normal appearance, PERRL, EOMI. Absent: scleral icterus, conjunctival injection, periorbital swelling Respiratory exam: Present: normal lung sounds bilaterally. Absent: respiratory distress, wheezes, rales, rhonchi, stridor, chest wall tenderness Cardiovascular Exam: Present: regular rate, normal rhythm, normal heart sounds. Absent: systolic murmur, diastolic murmur, rubs, gallop, clicks GI/Abdominal exam: Present: soft, normal bowel sounds. Absent: distended, tenderness, guarding, rebound, rigid Extremities exam: Present: normal inspection, full ROM, normal capillary refill. Absent: tenderness, pedal edema, joint swelling, calf tenderness Back exam: Present: normal inspection Neurological exam: Present: alert, oriented X3, CN II-XII intact Psychiatric exam: Present: normal affect, normal mood Course Vital Signs 02/24/22 02/24/22 18:15 20:48 Temperature 98.2 F Pulse Rate 99 91 Respiratory 20 18 Rate Blood Pressure 150/93 113/77 O2 Sat by Pulse 99 99 Oximetry Chest Pain MDM - MDM This is a 36-year-old male presenting with chest burning. Patient well appearing and in no apparent distress. Reports minimal burning now. Vitals within normal limits. EKG obtained and interpreted by me which shows normal sinus rhythm, no ST segment or T-wave abnormalities. Normal axis. Ventricular rate 90. Laboratory studies obtained and a relatively unremarkable. Troponin is within normal limit s. Chest x-ray obtained interpreted by me which is negative for acute process. Patient given Protonix, Pepcid fluids., On reevaluation patient reports resolution of chest burning. Results discussed the patient. Patient has frequent cardiac workups which have ruled out ACS. Pain likely related to acid reflux. Patient we discharged with A prescription. He is to continue taking Protonix. GERD exacerbating factors discussed in detail. Patient to follow up with cardiology for stress test as planned. Dr. Pimentel is my attending. Disposition Clinical Impression: Burning chest pain Disposition: HOME SELF-CARE Condition: Good Instructions (If sedation given, give patient instructions): Chest Pain (ED), GERD (Gastroesophageal Reflux Disease) in Children (ED) Additional Instructions: Take medication as directed. Continue Protonix. Avoid triggers of gastroesophageal reflux disease which we discussed today. Common triggers include alcohol, caffeine, chocolate, fatty foods. Avoid eating within 3 hours of sleep. Sleeping with the head of the bed elevated may help improve symptoms. I also highly recommend seeking therapy as talking with the therapist may help your anxiety. Return to the emergency Department if you experience new, co ncerning, or worsening symptoms. Prescriptions: Famotidine [Pepcid] 20 mg PO BID #28 tablet Is patient prescribed a controlled substance at d/c from ED?: No Referrals: Oli Metcalf DO [Primary Care Provider] - 1-2 days Time of Disposition: 20:30
[2022-02-24 20:49] VITALS: BP 113/77; PULSE 91; RESP 18
== END 2022-02-24 20:49 | disposition home or self-care (01) ==
LOC: EC 18:10
DX: R07.9 Chest pain, unspecified (principal); J45.909 Unspecified asthma, uncomplicated; K21.9 Gastro-esophageal reflux disease without esophagitis; Z79.899 Other long term (current) drug therapy; Z88.0 Allergy status to penicillin; Z88.8 Allergy status to other drugs, medicaments and biological substances; Z86.16 Personal history of COVID-19; Z90.49 Acquired absence of other specified parts of digestive tract
CPT/HCPCS: 36415; 93005; 80053; 83735; 84484; 85025; 85610; 85730; 71046; 99285; 96374; 96375; 96361; C9113

== ENCOUNTER 2022-03-06 07:01 | Emergency (ER) | payer OTHER ==
--- NOTE | 2022-03-06 07:36 | ED ---
General Adult HPI - General Chief complaint: Upper Respiratory Infection Stated complaint: URI Time Seen by Provider: 03/06/22 07:18 Source: patient, RN notes reviewed Mode of arrival: ambulatory Limitations: no limitations - History of Present Illness Initial comments: 36-year-old male coming into the ED for a sore throat and productive cough 1 month. Patient reports positive COVID the test home and his symptoms have not improved. He has tried Tylenol and Motrin without relief. He denies any sick contacts. He was not vaccinated against Covid or flu. Denies fever chills, chest pain, palpitations, shortness of breath, abdominal pain, nausea, vomiting, diarrhea. - Related Data Home Medications Medication Instructions Recorded Confirmed Fluticasone Nasal [place] [Flonase 2 spray EA NOSTRIL DAILY PRN 01/25/22 02/21/22 Nasal [place]] Acetaminophen Tab [Tylenol] 500 mg PO Q6H PRN 02/21/22 02/21/22 Albuterol Sulfate [Albuterol 2 puff PO RT-Q6H PRN 02/21/22 02/21/22 Sulfate Hfa] Ascorbic Acid [Vitamin C] 500 mg PO DAILY 02/21/22 02/21/22 Beclomethasone Dip 80 Mcg/Puff 2 puff INHALATION DIRECTED 02/21/22 02/21/22 [Qvar 80 mcg] Cyanocobalamin (Vitamin B-12) 1,000 mcg PO DAILY 02/21/22 02/21/22 [Vitamin B-12] Pantoprazole Sodium [Protonix] 40 mg PO DAILY 02/21/22 02/21/22 Zinc Sulfate 50 mg PO DAILY 02/21/22 02/21/22 Previous Rx's Medication Instructions Recorded Famotidine [Pepcid] 20 mg PO BID #28 tablet 02/24/22 Allergies Allergy/AdvReac Type Severity Reaction Status Date / Time amoxicillin Allergy Rash/Hives Verified 03/06/22 07:03 diphenhydramine HCl Allergy Tongue Verified 03/06/22 07:03 [From Benadryl] Swells Penicillins Allergy Rash/Hives Verified 03/06/22 07:03 Review of Systems ROS Statement: Those systems with pertinent positive or pertinent negative responses have been documented in the HPI. ROS Other: All systems not noted in ROS Statement are negative. Past Medical History Past Medical History: Asthma, GERD/Reflux Additional Past Medical History / Comment(s): cellulitis, Covid 06/2021, 01/2022 History of Any Multi-Drug Resistant Organisms: None Reported Past Surgical History: Appendectomy Additional Past Surgical History / Comment(s): vericose vein stripping Past Psychological History: No Psychological Hx Reported Smoking Status: Never smoker Past Alcohol Use History: Occasional Past Drug Use History: None Reported - Past Family History Family Family Medical History: Coronary Artery Disease (CAD) General Exam Limitations: no limitations General appearance: alert, in no apparent distress Head exam: Present: atraumatic, normocephalic, normal inspection Eye exam: Present: normal appearance, PERRL, EOMI. Absent: scleral icterus, conjunctival injection, periorbital swelling ENT exam: Present: normal exam, normal oropharynx, mucous membranes moist Neck exam: Present: normal inspection. Absent: tenderness, meningismus, lymphadenopathy Respiratory exam: Present: normal lung sounds bilaterally. Absent: respiratory distress, wheezes, rales, rhonchi, stridor Cardiovascular Exam: Present: tachycardia, normal heart sounds. Absent: systolic murmur, diastolic murmur, rubs, gallop, clicks GI/Abdominal exam: Present: soft, normal bowel sounds. Absent: distended, tenderness, guarding, rebound, rigid Course Vital Signs 03/06/22 07:03 Temperature 97.8 F Pulse Rate 105 H Respiratory 18 Rate Blood Pressure 134/87 O2 Sat by Pulse 98 Oximetry Medical Decision Making - Medical Decision Making 36-year-old male coming in to be evaluated for cough and sore throat. Patient had COVID and flu tests performed in ED which were negative, and chest x-ray was interpreted by me which was negative for acute process. I discussed results with patient all questions were answered. Case discussed with Dr. Hernandez. - Lab Data Lab Results 03/06/22 03/06/22 Range/Units 07:45 07:45 Coronavirus (PCR) Not Detected (Not Detectd) Influenza Type A RNA Not Detected (Not Detectd) Influenza Type B (PCR) Not Detected (Not Detectd) Disposition Clinical Impression: Acute viral syndrome Disposition: HOME SELF-CARE Condition: Stable Instructions (If sedation given, give patient instructions): Upper Respiratory Infection (ED) Additional Instructions: Return to the ED if symptoms persist or worsening symptoms such as chest pain, shortness of breath, fever. Is patient prescribed a controlled substance at d/c from ED?: No Referrals: Oli Metcalf DO [Primary Care Provider] - 1-2 days
--- NOTE | 2022-03-06 08:16 | XR ---
EXAMINATION TYPE: XR chest 2V DATE OF EXAM: 03/06/2022 COMPARISON: 02/24/2022 HISTORY: 36-year-old male with cough TECHNIQUE: PA and lateral views FINDINGS: The cardiomediastinal silhouette, aorta, and pulmonary vasculature are within normal limits. Lungs an d pleural spaces are clear. IMPRESSION: No acute cardiopulmonary process.
[2022-03-06 09:11] VITALS: BP 129/78; PULSE 74; RESP 16; TEMP 98.2
== END 2022-03-06 09:11 | disposition home or self-care (01) ==
LOC: EC 07:01
DX: B34.9 Viral infection, unspecified (principal); J45.909 Unspecified asthma, uncomplicated; K21.9 Gastro-esophageal reflux disease without esophagitis; Z20.822 Contact with and (suspected) exposure to COVID-19; Z86.16 Personal history of COVID-19; Z88.1 Allergy status to other antibiotic agents; Z88.0 Allergy status to penicillin; Z79.51 Long term (current) use of inhaled steroids; Z79.899 Other long term (current) drug therapy
CPT/HCPCS: 71046; 87502; 87635; 99283

== ENCOUNTER 2022-03-07 07:22 | Emergency (ER) | payer OTHER ==
[2022-03-07 07:27] VITALS: RESP 18
--- NOTE | 2022-03-07 08:16 | ED ---
General Adult HPI - General Chief complaint: Upper Respiratory Infection Stated complaint: Chest pain Time Seen by Provider: 03/07/22 08:08 Source: patient Mode of arrival: ambulatory Limitations: no limitations - History of Present Illness Initial comments: Dictation was produced using [employer] dictation software. please excuse any grammatical, word or spelling errors. Chief Complaint: 36-year-old male presents emergency department for pleuritic chest pain History of Present Illness: 36-year-old male presents emergency department for one day of pleuritic chest pain. Patient states he has sharp substernal chest pain as respiratory takes a deep breath or coughs. Patient has been suffering from a viral URI for several days. She denies any shortness of breath. Denies any chills. Allegedly tested positive for COVID-19 recently at home. Seen in the emergency department yesterday with negative workup. Patient has any signi ficant comorbidities. The ROS documented in this emergency department record has been reviewed and confirmed by me. Those systems with pertinent positive or negative responses have been documented in the HPI. All other systems are other negative and/or noncontributory. PHYSICAL EXAM: General Impression: Alert and oriented x3, not in acute distress HEENT: Normocephalic atraumatic, extra-ocular movements intact, pupils equal and reactive to light bilaterally, mucous membranes moist. Cardiovascular: Heart regular rate and rhythm Chest: Able to complete full sentences, no retractions, no tachypnea Abdomen: abdomen soft, non-tender, non-distended, no organomegaly Musculoskeletal: Pulses present and equal in all extremities, no peripheral edema Motor: no focal deficits noted Neurological: CN II-XII grossly intact, no focal motor or sensory deficits noted Skin: Intact with no visualized rashes Psych: Normal affect and mood ED course: 36-year-old well-appearing male with no significant past medical history presents emergency department for pleurisy. Signs upon arrival are within acceptable limits. Nursing notes and chart review was performed My EKG interpretation: Ventricular rate 63, sinus rhythm,. 175, care is 94, QTC 413. No ID prolongation, no QTC prolongation, no ST or T-wave changes noted. EKG compared to 02/24/2022 showing no changes. Overall, this EKG is unremarka ble Laboratory evaluation obtained. CBC unremarkable. Metabolic panel negative. Troponins negative. Chest x-ray is nonacute. Patient reevaluated at bedside at 9:37 AM found him in stable medical condition. Patient be discharged. Critical Care: no Critical Care time: n/a - Related Data Home Medications Medication Instructions Recorded Confirmed Fluticasone Nasal [place] [Flonase 2 spray EA NOSTRIL DAILY PRN 01/25/22 02/21/22 Nasal [place]] Acetaminophen Tab [Tylenol] 500 mg PO Q6H PRN 02/21/22 02/21/22 Albuterol Sulfate [Albuterol 2 puff PO RT-Q6H PRN 02/21/22 02/21/22 Sulfate Hfa] Ascorbic Acid [Vitamin C] 500 mg PO DAILY 02/21/22 02/21/22 Beclomethasone Dip 80 Mcg/Puff 2 puff INHALATION DIRECTED 02/21/22 02/21/22 [Qvar 80 mcg] Cyanocobalamin (Vitamin B-12) 1,000 mcg PO DAILY 02/21/22 02/21/22 [Vitamin B-12] Pantoprazole Sodium [Protonix] 40 mg PO DAILY 02/21/22 02/21/22 Zinc Sulfate 50 mg PO DAILY 02/21/22 02/21/22 Previous Rx's Medication Instructions Recorded Famotidine [Pepcid] 20 mg PO BID #28 tablet 02/24/22 Allergies Allergy/AdvReac Type Severity Reaction Status Date / Time amoxicillin Allergy Rash/Hives Verified 03/07/22 07:27 diphenhydramine HCl Allergy Tongue Verified 03/07/22 07:27 [From Benadryl] Swells Penicillins Allergy Rash/Hives Verified 03/07/22 07:27 Review of Systems ROS Statement: Those systems with pertinent positive or pertinent negative responses have been documented in the HPI. ROS Other: All systems not noted in ROS Statement are negative. Past Medical History Past Medical History: Asthma, GERD/Reflux Additional Past Medical History / Comment(s): cellulitis, Covid 06/2021, 01/2022 History of Any Multi-Drug Resistant Organisms: None Reported Past Surgical History: Appendectomy Additional Past Surgical History / Comment(s): vericose vein stripping Past Psychological History: No Psychological Hx Reported Smoking Status: Never smoker Past Alcohol Use History: Occasional Past Drug Use History: None Reported - Past Family History Family Family Medical History: Coronary Artery Disease (CAD) General Exam Limitations: no limitations Course Vital Signs 03/07/22 07:25 Temperature 98 F Pulse Rate 86 Respiratory 18 Rate Blood Pressure 140/86 O2 Sat by Pulse 99 Oximetry Medical Decision Making - Lab Data Result diagrams: 03/07/22 08:50 03/07/22 08:50 Lab Results 03/07/22 03/07/22 03/07/22 Range/Units 08:50 08:50 08:50 WBC 5.2 (3.8-10.6) k/uL RBC 5.39 (4.30-5.90) m/uL Hgb 15.8 (13.0-17.5) gm/dL Hct 47.1 (39.0-53.0) % MCV 87.4 (80.0-100.0) fL MCH 29.3 (25.0-35.0) pg MCHC 33.5 (31.0-37.0) g/dL RDW 12.2 (11.5-15.5) % Plt Count 209 (150-450) k/uL MPV 7.8 Neutrophils % 79 % Lymphocytes % 8 % Monocytes % 8 % Eosinophils % 1 % Basophils % 1 % Neutrophils # 4.1 (1.3-7.7) k/uL Lymphocytes # 0.4 L (1.0-4.8) k/uL Monocytes # 0.4 (0-1.0) k/uL Eosinophils # 0.1 (0-0.7) k/uL Basophils # 0.1 (0-0.2) k/uL Sodium 140 (137-145) mmol/L Potassium 4.7 (3.5-5.1) mmol/L Chloride 106 (98-107) mmol/L Carbon Dioxide 29 (22-30) mmol/L Anion Gap 5 mmol/L BUN 20 (9-20) mg/dL Creatinine 1.01 (0.66-1.25) mg/dL Est GFR (CKD-EPI)AfAm >90 (>60 ml/min/1.73 sqM) Est GFR (CKD-EPI)NonAf >90 (>60 ml/min/1.73 sqM) Glucose 99 (74-99) mg/dL Calcium 8.9 (8.4-10.2) mg/dL Troponin I <0.012 (0.000-0.034) ng/mL Disposition Clinical Impression: Pleurisy Disposition: HOME SELF-CARE Condition: Good Instructions (If sedation given, give patient instructions): Pleurisy (ED) Is patient prescribed a controlled substance at d/c from ED?: No Referrals: Oli Metcalf DO [Primary Care Provider] - 1-2 days Time of Disposition: 09:38
--- NOTE | 2022-03-07 08:44 | XR ---
EXAMINATION TYPE: XR chest 2V DATE OF EXAM: 03/07/2022 COMPARISON: 03/06/2022 HISTORY: Chest pain TECHNIQUE: Frontal and lateral views of the chest are obtained. FINDINGS: There is no focal air space opacity. No evidence for pneumothorax. No pleural effusion. The cardiac silhouette size is within normal limits. The osseous structures are grossly intact. IMPRESSION: 1. No acute cardiopulmonary process.
[2022-03-07 09:04] LABS: Basophils # (A) 0.1 k/uL (0-0.2); Basophils % (A) 1 %; Eosinophils # (A) 0.1 k/uL (0-0.7); Eosinophils % (A) 1 %; HCT 47.1 % (39.0-53.0); HGB 15.8 gm/dL (13.0-17.5); Lymphocytes # (A) 0.4 k/uL (1.0-4.8); Lymphocytes % (A) 8 %; MCH 29.3 pg (25.0-35.0); MCHC 33.5 g/dL (31.0-37.0); MCV 87.4 fL (80.0-100.0); Mean Platelet Volume 7.8; Monocytes # (A) 0.4 k/uL (0-1.0); Monocytes % (A) 8 %; Neutrophils # (A) 4.1 k/uL (1.3-7.7); Neutrophils % (A) 79 %; Platelet Count 209 k/uL (150-450); RBC 5.39 m/uL (4.30-5.90); RDW 12.2 % (11.5-15.5); WBC 5.2 k/uL (3.8-10.6)
[2022-03-07 09:10] LABS: African American GFR (CKD) >90 (>60 ml/min/1.73 sqM); Anion Gap 5 mmol/L; Blood Urea Nitrogen 20 mg/dL (9-20); Calcium 8.9 mg/dL (8.4-10.2); Carbon Dioxide 29 mmol/L (22-30); Chloride 106 mmol/L (98-107); Glucose 99 mg/dL (74-99); Non-African American GFR(CKD) >90 (>60 ml/min/1.73 sqM); Potassium 4.7 mmol/L (3.5-5.1); Sodium 140 mmol/L (137-145)
[2022-03-07 10:00] VITALS: BP 109/84; PULSE 74; TEMP 98.1
== END 2022-03-07 10:00 | disposition home or self-care (01) ==
LOC: EC 07:22
DX: R09.1 Pleurisy (principal); J45.909 Unspecified asthma, uncomplicated; K21.9 Gastro-esophageal reflux disease without esophagitis; Z86.16 Personal history of COVID-19; Z90.89 Acquired absence of other organs; Z88.1 Allergy status to other antibiotic agents; Z88.0 Allergy status to penicillin; Z88.8 Allergy status to other drugs, medicaments and biological substances; Z79.899 Other long term (current) drug therapy; Z79.51 Long term (current) use of inhaled steroids
CPT/HCPCS: 36415; 71046; 80048; 84484; 85025; 93005; 99284

== ENCOUNTER 2022-03-17 22:44 | Emergency (ER) | payer OTHER ==
[2022-03-17 23:25] VITALS: TEMP 97.5
[2022-03-18] MEDS ORDERED: ONDANSETRON 4 MG/2 ML VIAL IVP STA (01:28)
[2022-03-18 01:55] LABS: Basophils # (A) 0.1 k/uL (0-0.2); Basophils % (A) 2 %; Eosinophils # (A) 0.2 k/uL (0-0.7); Eosinophils % (A) 3 %; HCT 44.2 % (39.0-53.0); HGB 15.5 gm/dL (13.0-17.5); Lymphocytes % (A) 15 %; MCH 30.4 pg (25.0-35.0); MCV 86.7 fL (80.0-100.0); Mean Platelet Volume 7.9; Monocytes # (A) 0.5 k/uL (0-1.0); Monocytes % (A) 9 %; Neutrophils # (A) 4.4 k/uL (1.3-7.7); Neutrophils % (A) 70 %; Platelet Count 220 k/uL (150-450); RBC 5.11 m/uL (4.30-5.90); RDW 12.2 % (11.5-15.5); WBC 6.2 k/uL (3.8-10.6)
--- NOTE | 2022-03-18 02:01 | ED ---
General Adult HPI - General Chief complaint: Nausea/Vomiting/Diarrhea Stated complaint: elevated blood pressure Time Seen by Provider: 03/18/22 01:20 Source: patient Mode of arrival: ambulatory Limitations: no limitations - History of Present Illness Initial comments: 36-year-old male with past history of asthma, recent cold infection who presents to the emergency department reporting nausea and elevated blood pressure. He states he was at home when he had sudden onset of nausea. He checked his blood pressure and it was noted to be 155/95. Patient became extremely nervous and came in to the hospital. He was diagnosed with Covid 3 months ago. States that he has been off of work since because he is having long-term symptoms of recurrent chest pain and shortness of breath. Patient denies history of high blood pressure. He denies headaches or visual changes. No chest pain currently. No shortness of breath. Denies vomiting. Normal pain. 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 - Related Data Home Medications Medication Instructions Recorded Confirmed Fluticasone Nasal Forgan [Flonase 2 spray EA NOSTRIL DAILY PRN 01/25/22 02/21/22 Nasal Forgan] Acetaminophen Tab [Tylenol] 500 mg PO Q6H PRN 02/21/22 02/21/22 Albuterol Sulfate [Albuterol 2 puff PO RT-Q6H PRN 02/21/22 02/21/22 Sulfate Hfa] Ascorbic Acid [Vitamin C] 500 mg PO DAILY 02/21/22 02/21/22 Beclomethasone Dip 80 Mcg/Puff 2 puff INHALATION DIRECTED 02/21/22 02/21/22 [Qvar 80 mcg] Cyanocobalamin (Vitamin B-12) 1,000 mcg PO DAILY 02/21/22 02/21/22 [Vitamin B-12] Pantoprazole Sodium [Protonix] 40 mg PO DAILY 02/21/22 02/21/22 Zinc Sulfate 50 mg PO DAILY 02/21/22 02/21/22 Previous Rx's Medication Instructions Recorded Famotidine [Pepcid] 20 mg PO BID #28 tablet 02/24/22 Allergies Allergy/AdvReac Type Severity Reaction Status Date / Time amoxicillin Allergy Rash/Hives Verified 03/17/22 23:22 diphenhydramine HCl Allergy Tongue Verified 03/17/22 23:22 [From Benadryl] Swells Penicillins Allergy Rash/Hives Verified 03/17/22 23:22 Review of Systems ROS Statement: Those systems with pertinent positive or pertinent negative responses have been documented in the HPI. ROS Other: All systems not noted in ROS Statement are negative. Past Medical History Past Medical History: Asthma, GERD/Reflux Additional Past Medical History / Comment(s): cellulitis, Covid 06/2021, 01/2022 History of Any Multi-Drug Resistant Organisms: None Reported Past Surgical History: Appendectomy Additional Past Surgical History / Comment(s): vericose vein stripping Past Psychological History: No Psychological Hx Reported Smoking Status: Never smoker Past Alcohol Use History: Occasional Past Drug Use History: None Reported - Past Family History Family Family Medical History: Coronary Artery Disease (CAD) General Exam Limitations: no limitations General appearance: alert, in no apparent distress Head exam: Present: atraumatic, normocephalic, normal inspection Eye exam: Present: normal appearance, PERRL, EOMI. Absent: scleral icterus, conjunctival injection, periorbital swelling ENT exam: Present: normal exam, mucous membranes moist Neck exam: Present: normal inspection. Absent: tenderness, meningismus, lymphadenopathy Respiratory exam: Present: normal lung sounds bilaterally. Absent: respiratory distress, wheezes, rales, rhonchi, stridor Cardiovascular Exam: Present: regular rate, normal rhythm, normal heart sounds. Absent: systolic murmur, diastolic murmur, rubs, gallop, clicks GI/Abdominal exam: Present: soft, normal bowel sounds. Absent: distended, tenderness, guarding, rebound, rigid Extremities exam: Present: normal inspection, full ROM, normal capillary refill. Absent: tenderness, pedal edema, joint swelling, calf tenderness Back exam: Present: normal inspection Neurological exam: Present: alert, oriented X3, CN II-XII intact Psychiatric exam: Present: normal affect, normal mood Skin exam: Present: warm, dry, intact, normal color. Absent: rash Course Vital Signs 03/17/22 03/18/22 03/18/22 23:22 01:30 02:03 Temperature 97.5 F L Pulse Rate 72 72 Pulse Rate [ 82 Prone Pulse Oximetery] Pulse Rate [ 80 Sitting Pulse Oximetery] Pulse Rate [ 84 Standing Pulse Oximetery] Respiratory 16 16 18 Rate Blood Pressure 138/90 141/93 Blood Pressure 126/83 [Prone] Blood Pressure 133/97 [Sitting] Blood Pressure 134/96 [Standing] O2 Sat by Pulse 98 97 Oximetry 03/18/22 03:03 Temperature Pulse Rate 82 Pulse Rate [ Prone Pulse Oximetery] Pulse Rate [ Sitting Pulse Oximetery] Pulse Rate [ Standing Pulse Oximetery] Respiratory 16 Rate Blood Pressure 134/87 Blood Pressure [Prone] Blood Pressure [Sitting] Blood Pressure [Standing] O2 Sat by Pulse 99 Oximetry Medical Decision Making - Medical Decision Making Upon arrival patient was placed into room 1. A thorough history and physical exam was performed. Access was established. Laboratory studies were conducted. Orthostatics were performed. Patient does go for chest x-ray. Results were discussed with the patient. I did order Zofran however the patient reports to tracey ojeda of his nausea at this time. Laboratory studies within normal limits. Chest x-ray demonstrates no acute change. Chest x-ray was interpreted by myself and read by the radiologist. Results are discussed the patient. He states he feels back to his normal baseline at this time. He will be discharged home. He does have a stress test scheduled for the of this month. Also has an appointment with Dr. Good on April 23. He is instructed to keep these appointments. Follow up with primary care doctor in 2-4 days return for any new or worsening symptoms. Patient was discharged in stable condition - Lab Data Result diagrams: 03/18/22 01:42 03/18/22 01:42 Lab Results 03/18/22 03/18/22 Range/Units 01:42 01:42 WBC 6.2 (3.8-10.6) k/uL RBC 5.11 (4.30-5.90) m/uL Hgb 15.5 (13.0-17.5) gm/dL Hct 44.2 (39.0-53.0) % MCV 86.7 (80.0-100.0) fL MCH 30.4 (25.0-35.0) pg MCHC 35.0 (31.0-37.0) g/dL RDW 12.2 (11.5-15.5) % Plt Count 220 (150-450) k/uL MPV 7.9 Neutrophils % 70 % Lymphocytes % 15 % Monocytes % 9 % Eosinophils % 3 % Basophils % 2 % Neutrophils # 4.4 (1.3-7.7) k/uL Lymphocytes # 1.0 (1.0-4.8) k/uL Monocytes # 0.5 (0-1.0) k/uL Eosinophils # 0.2 (0-0.7) k/uL Basophils # 0.1 (0-0.2) k/uL Sodium 139 (137-145) mmol/L Potassium 4.5 (3.5-5.1) mmol/L Chloride 104 (98-107) mmol/L Carbon Dioxide 29 (22-30) mmol/L Anion Gap 6 mmol/L BUN 26 H (9-20) mg/dL Creatinine 0.97 (0.66-1.25) mg/dL Est GFR (CKD-EPI)AfAm >90 (>60 ml/min/1.73 sqM) Est GFR (CKD-EPI)NonAf >90 (>60 ml/min/1.73 sqM) Glucose 113 H (74-99) mg/dL Calcium 9.7 (8.4-10.2) mg/dL Total Bilirubin 0.6 (0.2-1.3) mg/dL AST 28 (17-59) U/L ALT 26 (4-49) U/L Alkaline Phosphatase 70 (38-126) U/L Total Protein 6.6 (6.3-8.2) g/dL Albumin 4.2 (3.5-5.0) g/dL Lipase 115 (23-300) U/L Disposition Clinical Impression: Hypertension Disposition: HOME SELF-CARE Condition: Stable Instructions (If sedation given, give patient instructions): Normal Exam (ED) Additional Instructions: Please follow-up with your primary care doctor in 2-4 days. Keep your appointment for your stress test and your EGD. Return for any new or worsening symptoms Is patient prescribed a controlled substance at d/c from ED?: No Referrals: Oli Metcalf DO [Primary Care Provider] - 1-2 days Time of Disposition: 02:53
[2022-03-18 02:05] VITALS: PULSE 82
[2022-03-18 02:15] LABS: ALT 26 U/L (4-49); AST 28 U/L (17-59); African American GFR (CKD) >90 (>60 ml/min/1.73 sqM); Albumin 4.2 g/dL (3.5-5.0); Alkaline Phosphatase 70 U/L (38-126); Anion Gap 6 mmol/L; Blood Urea Nitrogen 26 mg/dL (9-20); Calcium 9.7 mg/dL (8.4-10.2); Carbon Dioxide 29 mmol/L (22-30); Chloride 104 mmol/L (98-107); Glucose 113 mg/dL (74-99); Lipase 115 U/L (23-300); Non-African American GFR(CKD) >90 (>60 ml/min/1.73 sqM); Potassium 4.5 mmol/L (3.5-5.1); Sodium 139 mmol/L (137-145); Total Bilirubin 0.6 mg/dL (0.2-1.3); Total Protein 6.6 g/dL (6.3-8.2)
--- NOTE | 2022-03-18 02:27 | XR ---
EXAMINATION TYPE: XR chest 2V DATE OF EXAM: 03/18/2022 COMPARISON: 03/07/2022 HISTORY: Short of breath TECHNIQUE: 2 views FINDINGS: Heart is normal. Lungs are clear. Diaphragm is normal. Bony thorax is intact. IMPRESSION: Normal chest. No change.
[2022-03-18 03:05] VITALS: BP 134/87; RESP 16
== END 2022-03-18 03:04 | disposition home or self-care (01) ==
LOC: EC 22:44
DX: I10 Essential (primary) hypertension (principal); J45.909 Unspecified asthma, uncomplicated; K21.9 Gastro-esophageal reflux disease without esophagitis; Z88.0 Allergy status to penicillin; Z88.8 Allergy status to other drugs, medicaments and biological substances; Z86.16 Personal history of COVID-19; Z79.899 Other long term (current) drug therapy
CPT/HCPCS: 36415; 71046; 80053; 83690; 85025; 99284

== ENCOUNTER → 2022-04-15 | Outpatient (CLI) | payer OTHER ==
--- NOTE | 2022-04-15 10:49 | XR ---
EXAMINATION TYPE: XR thoracic spine complete DATE OF EXAM: 04/15/2022 10:34 AM INDICATION: Patient age:Male; 36 years old; Reason for study: M54.6 Pain in Thoracic Spine; COMPARISON: 03/18/2022 radiograph. TECHNIQUE: 2 views of the thoracic spine in Frontal and lateral projections. FINDINGS: Osteophyte formation of the vertebral bodies. No evidence of acute fracture. There is no evidence of disk space narrowing or loss of vertebral body height. There is normal alignment of the thoracic chu tebral bodies. IMPRESSION: 1. No acute osseous pathology. 2. Mild disc degeneration changes throughout the spine.
== END | disposition home or self-care (01) ==
LOC: RADXRMAIN 10:06
PROVIDERS: ATTEND Nurse Practitioner Family
DX: M51.34 Other intervertebral disc degeneration, thoracic region (principal)
CPT/HCPCS: 72072

== ENCOUNTER 2022-04-16 11:25 | Emergency (ER) | payer OTHER ==
[2022-04-16 11:30] VITALS: TEMP 97.7
[2022-04-16] MEDS ORDERED: ACETAMINOPHEN TAB 325 MG TAB PO STA (12:41)
[2022-04-16 12:46] LABS: Basophils # (A) 0.1 k/uL (0-0.2); Basophils % (A) 1 %; Eosinophils # (A) 0.1 k/uL (0-0.7); Eosinophils % (A) 1 %; HCT 46.6 % (39.0-53.0); HGB 16.1 gm/dL (13.0-17.5); Lymphocytes # (A) 0.8 k/uL (1.0-4.8); Lymphocytes % (A) 10 %; MCH 30.1 pg (25.0-35.0); MCHC 34.5 g/dL (31.0-37.0); MCV 87.4 fL (80.0-100.0); Mean Platelet Volume 7.7; Monocytes # (A) 0.5 k/uL (0-1.0); Monocytes % (A) 7 %; Neutrophils # (A) 6.1 k/uL (1.3-7.7); Neutrophils % (A) 80 %; Platelet Count 250 k/uL (150-450); RBC 5.33 m/uL (4.30-5.90); RDW 12.2 % (11.5-15.5); WBC 7.7 k/uL (3.8-10.6)
[2022-04-16 12:58] LABS: ALT 25 U/L (4-49); AST 25 U/L (17-59); African American GFR (CKD) >90 (>60 ml/min/1.73 sqM); Albumin 4.3 g/dL (3.5-5.0); Alkaline Phosphatase 72 U/L (38-126); Anion Gap 6 mmol/L; Blood Urea Nitrogen 17 mg/dL (9-20); Calcium 9.5 mg/dL (8.4-10.2); Carbon Dioxide 30 mmol/L (22-30); Chloride 105 mmol/L (98-107); Glucose 95 mg/dL (74-99); Non-African American GFR(CKD) 78 (>60 ml/min/1.73 sqM); Potassium 4.6 mmol/L (3.5-5.1); Sodium 141 mmol/L (137-145); Total Bilirubin 1.1 mg/dL (0.2-1.3); Total Protein 6.8 g/dL (6.3-8.2)
--- NOTE | 2022-04-16 13:30 | ED ---
General Adult HPI - General Chief complaint: Needlestick/Exposure Stated complaint: carbon monoxide exposure Time Seen by Provider: 04/16/22 11:53 Source: patient, RN notes reviewed Mode of arrival: ambulatory Limitations: no limitations - History of Present Illness Initial comments: 36-year-old male with past medical history significant for anxiety presenting to the emergency department with a chief complaint gas exposure. He notes that he went to his basement and smelled natural gas. He was told that his water tank was leaking. He is unsure of how long it was leaking for. He admits to a mild headache and has not taken anything for relief. He denies vision changes, dizziness, lightheadedness, nausea, vomiting, chest pain, palpitations, altered mental status. - Related Data Home Medications Medication Instructions Recorded Confirmed Acetaminophen Tab [Tylenol] 500 mg PO Q6H PRN 02/21/22 04/16/22 Albuterol Sulfate [Albuterol 2 puff INHALATION RT-Q6H PRN 02/21/22 04/16/22 Sulfate Hfa] Beclomethasone Dip 80 Mcg/Puff 2 puff INHALATION RT-BID PRN 02/21/22 04/16/22 [Qvar 80 mcg] Pantoprazole Sodium [Protonix] 40 mg PO DAILY 02/21/22 04/16/22 Allergies Allergy/AdvReac Type Severity Reaction Status Date / Time amoxicillin Allergy Rash/Hives Verified 04/16/22 12:32 diphenhydramine HCl Allergy Tongue Verified 04/16/22 12:32 [From Benadryl] Swells Penicillins Allergy Rash/Hives Verified 04/16/22 12:32 Review of Systems ROS Statement: Those systems with pertinent positive or pertinent negative responses have been documented in the HPI. ROS Other: All systems not noted in ROS Statement are negative. Past Medical History Past Medical History: Asthma, GERD/Reflux Additional Past Medical History / Comment(s): cellulitis, Covid 06/2021, 01/2022 History of Any Multi-Drug Resistant Organisms: None Reported Past Surgical History: Appendectomy Additional Past Surgical History / Comment(s): vericose vein stripping Past Psychological History: No Psychological Hx Reported Smoking Status: Never smoker Past Alcohol Use History: Occasional Past Drug Use History: None Reported - Past Family History Family Family Medical History: Coronary Artery Disease (CAD) General Exam Limitations: no limitations General appearance: alert, in no apparent distress Head exam: Present: atraumatic, normocephalic, normal inspection Eye exam: Present: normal appearance, PERRL, EOMI. Absent: scleral icterus, conjunctival injection, periorbital swelling ENT exam: Present: normal exam, mucous membranes moist Neck exam: Present: normal inspection. Absent: tenderness, meningismus, lymphadenopathy Respiratory exam: Present: normal lung sounds bilaterally. Absent: respiratory distress, wheezes, rales, rhonchi, stridor Cardiovascular Exam: Present: regular rate, normal rhythm, normal heart sounds. Absent: systolic murmur, diastolic murmur, rubs, gallop, clicks GI/Abdominal exam: Present: soft, normal bowel sounds. Absent: distended, tenderness, guarding, rebound, rigid Extremities exam: Present: normal inspection, full ROM, normal capillary refill. Absent: tenderness, pedal edema, joint swelling, calf tenderness Back exam: Present: normal inspection Neurological exam: Present: alert, oriented X3, CN II-XII intact Psychiatric exam: Present: normal affect, normal mood Skin exam: Present: warm, dry, intact, normal color. Absent: rash Course Vital Signs 04/16/22 04/16/22 11:27 13:42 Temperature 97.7 F Pulse Rate 87 83 Respiratory 16 18 Rate Blood Pressure 136/80 142/83 O2 Sat by Pulse 100 98 Oximetry Medical Decision Making - Medical Decision Making Was pt. sent in by a medical professional or institution (, PA, LABORER SYRUP MACHINE, urgent care, hospital, or senior living...) When possible be specific @ -[No] Did you speak to anyone other than the patient for history (EMS, parent, family, police, friend...)? What history was obtained from this source @ -[No] Did you review nursing and triage notes (agree or disagree)? Why? @ -[I reviewed and agree with nursing and triage notes] Were old charts reviewed (outside hosp., previous admission, EMS record, old EKG, old radiological studies, urgent care reports/EKG's, senior living records)? Report findings @ -[No old charts were reviewed] Differential Diagnosis (chest pain, altered mental status, abdominal pain women, abdominal pain men, vaginal bleeding, weakness, fever, dyspnea, syncope, headache, dizziness, GI bleed, back pain, seizure, CVA, palpatations, mental health)? @ -[not applicable] EKG interpreted by me (3pts min.). @ -[As above] X-rays interpreted by me (1pt min.). @ -[None done] CT interpreted by me (1pt min.). @ -[None done] U/S interpreted by me (1pt. min.). @ -[None done] What testing was considered but not performed or refused? (CT, X-rays, U/S, labs)? Why? @ -[None] What meds were considered but not given or refused? Why? @ -[None] Did you discuss the management of the patient with other professionals (professionals i.e. , PA, LABORER SYRUP MACHINE, lab, RT, psych nurse, clinical social worker, solar process engineer, teacher, aoc plans intelligence officer, welfare case worker)? Give summary @ -[No] Was smoking cessation discussed for >3mins.? @ -[No] Was critical care preformed (if so, how long)? @ -[No] Were there social determinants of health that impacted care today? How? (Homelessness, low income, unemployed, alcoholism, drug addiction, transportation, low edu. Level, literacy, decrease access to med. care, [facility], rehab)? @ -[No] Was there de-escalation of care discussed even if they declined (Discuss DNR or withdrawal of care, Hospice)? DNR status @ -[No] What co-morbidities impacted this encounter? (DM, HTN, Smoking, COPD, CAD, Cancer, CVA, ARF, Chemo, Hep., AIDS, mental health diagnosis, sleep apnea, morbid obesity)? @ -[None] Was patient admitted / discharged? Hospital course, mention meds given and route, prescriptions, significant lab abnormalities, going to OR and other pertinent info. @ 36-year-old female presents to the emergency department with gas exposure Patient had a history and a physical, : Exam is essentially unremarkable. Lab work was essentially unremarkable. I discussed the results in detail with the patient, questions and comments were addressed. He was given Tylenol with symptomatic improvement while in the emergency department. He is agreeable with the plan for discharge. with recommended follow up with PCP in 1- 2 days. I discussed the case with JEAN Blandon who agrees with the plan of care. Patient discharged in stable condition. Undiagnosed new problem with uncertain prognosis? @ -[No] Drug Therapy requiring intensive monitoring for toxicity (Heparin, Nitro, Insulin, Cardizem)? @ -[No] Were any procedures done? @ -[No] Diagnosis/symptom? @ -gas exposure Acute, or Chronic, or Acute on Chronic? @ -acute Uncomplicated (without systemic symptoms) or Complicated (systemic symptoms)? @ -uncomplicated Side effects of treatment? @ -[No] Exacerbation, Progression, or Severe Exacerbation? @ -[No] Poses a threat to life or bodily function? How? (Chest pain, USA, IA, pneumonia, PE, COPD, DKA, ARF, appy, cholecystitis, CVA, Diverticulitis, Homicidal, Suicidal, threat to staff... and all critical care pts) @ -[No] - Lab Data Result diagrams: 04/16/22 12:37 04/16/22 12:37 Lab Results 04/16/22 04/16/22 Range/Units 12:37 12:37 WBC 7.7 (3.8-10.6) k/uL RBC 5.33 (4.30-5.90) m/uL Hgb 16.1 (13.0-17.5) gm/dL Hct 46.6 (39.0-53.0) % MCV 87.4 (80.0-100.0) fL MCH 30.1 (25.0-35.0) pg MCHC 34.5 (31.0-37.0) g/dL RDW 12.2 (11.5-15.5) % Plt Count 250 (150-450) k/uL MPV 7.7 Neutrophils % 80 % Lymphocytes % 10 % Monocytes % 7 % Eosinophils % 1 % Basophils % 1 % Neutrophils # 6.1 (1.3-7.7) k/uL Lymphocytes # 0.8 L (1.0-4.8) k/uL Monocytes # 0.5 (0-1.0) k/uL Eosinophils # 0.1 (0-0.7) k/uL Basophils # 0.1 (0-0.2) k/uL Sodium 141 (137-145) mmol/L Potassium 4.6 (3.5-5.1) mmol/L Chloride 105 (98-107) mmol/L Carbon Dioxide 30 (22-30) mmol/L Anion Gap 6 mmol/L BUN 17 (9-20) mg/dL Creatinine 1.18 (0.66-1.25) mg/dL Est GFR (CKD-EPI)AfAm >90 (>60 ml/min/1.73 sqM) Est GFR (CKD-EPI)NonAf 78 (>60 ml/min/1.73 sqM) Glucose 95 (74-99) mg/dL Calcium 9.5 (8.4-10.2) mg/dL Total Bilirubin 1.1 (0.2-1.3) mg/dL AST 25 (17-59) U/L ALT 25 (4-49) U/L Alkaline Phosphatase 72 (38-126) U/L Total Protein 6.8 (6.3-8.2) g/dL Albumin 4.3 (3.5-5.0) g/dL Disposition Clinical Impression: Natural gas exposure Disposition: HOME SELF-CARE Condition: Stable Additional Instructions: Please return to the nearest emergency department if worsening headache, dizziness, lightheadedness Is patient prescribed a controlled substance at d/c from ED?: No If Rx opioid, was Start Talking consent form obtained?: No Referrals: Oli Metcalf DO [Primary Care Provider] - 1-2 days Time of Disposition: 13:29
[2022-04-16 13:44] VITALS: BP 142/83; PULSE 83; RESP 18
== END 2022-04-16 13:44 | disposition home or self-care (01) ==
LOC: EC 11:25
DX: J45.909 Unspecified asthma, uncomplicated (principal); T59.91XA Toxic effect of unspecified gases, fumes and vapors, accidental (unintentional), initial encounter; K21.9 Gastro-esophageal reflux disease without esophagitis; F41.9 Anxiety disorder, unspecified; Z79.51 Long term (current) use of inhaled steroids; Z79.899 Other long term (current) drug therapy; Z88.0 Allergy status to penicillin; Z88.8 Allergy status to other drugs, medicaments and biological substances
CPT/HCPCS: 36415; 80053; 85025; 99283

== ENCOUNTER 2022-06-19 09:25 | Day surgery (SDC) | payer OTHER ==
--- NOTE | 2022-06-19 09:42 | P.GSHP ---
History of Present Illness H&P Date: 06/19/22 CHIEF COMPLAINT: GERD HISTORY OF PRESENT ILLNESS: The patient is a 37-year-old male who presents reports gastroesophageal reflux disease. Upper endoscopy was offered for further evaluation and management. PAST MEDICAL HISTORY: Please see list. PAST SURGICAL HISTORY: Please see list. MEDICATIONS: Please see list. ALLERGIES: Please see list. SOCIAL HISTORY: No illicit drug use FAMILY HISTORY: No reports of Crohn disease or ulcerative colitis. REVIEW OF ORGAN SYSTEMS: CONSTITUTIONAL: No reports of fevers or chills. GI: Denies any blood in stools or constipation. PHYSICAL EXAM: VITAL SIGNS: Stable GENERAL: Well-developed and pleasant in no acute distress. HEENT: No scleral icterus. Extraocular movements grossly intact. Moist buccal mucosa. NECK: Supple without lymphadenopathy. CHEST: Unlabored respirations. Equal bilateral excursions. CARDIOVASCULAR: Regular rate and rhythm. Distal 2+ pulses. ABDOMEN: Soft, nondistended. MUSCULOSKELETAL: No clubbing, cyanosis, or edema. ASSESSMENT: 1. Gastroesophageal reflux disease PLAN: 1. Recommend proceeding with an upper endoscopy Past Medical History Past Medical History: Asthma, GERD/Reflux, Vascular Disorder Additional Past Medical History / Comment(s): cellulitis, Covid 06/2021, 01/2022 History of Any Multi-Drug Resistant Organisms: None Reported Past Surgical History: Appendectomy Additional Past Surgical History / Comment(s): vericose vein stripping, wisdom teeth removed Additional Past Anesthesia/Blood Transfusion Reaction / Comment(s): slow to wake up Smoking Status: Former smoker - Past Family History Family Family Medical History: Coronary Artery Disease (CAD) Medications and Allergies Home Medications Medication Instructions Recorded Confirmed Type Acetaminophen Tab [Tylenol] 500 mg PO Q6H PRN 02/21/22 06/13/22 History Albuterol Sulfate [Albuterol 2 puff INHALATION RT-Q6H PRN 02/21/22 06/13/22 History Sulfate Hfa] Pantoprazole Sodium [Protonix] 40 mg PO DAILY 02/21/22 06/13/22 History Allergies Allergy/AdvReac Type Severity Reaction Status Date / Time amoxicillin Allergy Rash/Hives Verified 06/13/22 14:34 diphenhydramine HCl Allergy Tongue Verified 06/13/22 14:34 [From Benadryl] Swells Penicillins Allergy Rash/Hives Verified 06/13/22 14:34
[2022-06-19] MEDS ORDERED: LIDOCAINE 1% (10MG/ML) FOR IV START INTRADERMA PRN (09:51)
[2022-06-19] MEDS ORDERED: LACTATED RINGERS 1,000 ML IV ONE (09:51)
[2022-06-19] MEDS ORDERED: LACTATED RINGERS 1,000 ML IV SCH (09:51)
[2022-06-19] MEDS ORDERED: ONDANSETRON 4 MG/2 ML VIAL IVP PRN (09:51)
[2022-06-19 10:21] VITALS: RESP 16; TEMP 98
[2022-06-19] MEDS ORDERED: LIDOCAINE 2% INJ 20 MG/ML (2 ML VIAL) ONE (10:39)
[2022-06-19] MEDS ORDERED: GLYCOPYRROLATE 0.2 MG/ML 2 ML VIAL ONE (10:39)
[2022-06-19] MEDS ORDERED: MIDAZOLAM 2 MG/2 ML VIAL ONE (10:39)
[2022-06-19] MEDS ORDERED: PROPOFOL 10 MG/ML 20 ML VIAL IV ONE (10:39)
[2022-06-19] MEDS ORDERED: KETAMINE 10 MG/ML 20 ML VIAL ONE (10:39)
[2022-06-19] MEDS ORDERED: fentaNYL (PF) 50 MCG/ML 2 ML AMP ONE (10:39)
--- NOTE | 2022-06-19 11:01 | P.PCN ---
Date of Procedure: 06/19/22 Description of Procedure: PREOPERATIVE DIAGNOSIS: Gastroesophageal reflux disease. Morbid obesity. Hematemesis POSTOPERATIVE DIAGNOSIS: Gastroesophageal reflux disease. Gastritis OPERATION: Esophagogastroduodenoscopy with biopsies along antrum and duodenum SURGEON: Marley Ivan MD ANESTHESIA: MAC. INDICATIONS: The patient is a 37-year-old male who presents with reflux disease. Benefits and risks of the procedure were described. Informed consent was obtained. DESCRIPTION: The patient was brought into the endoscopy suite and laid in the left lateral decubitus position. An Olympus gastroscope was passed along the posterior oropharynx down to the distal esophagus where the squamocolumnar junction was encountered at 37 cm from the incisors. The stomach was entered and no bile reflux was found. Additional findings are listed below. Biopsies with cold forceps were obtained of the antrum. The first through third portion of the duodenum was examined. Retroflexion of the scope confirmed Hill grade 2 lower esophageal valve. The squamocolumnar junction demonstrated LA grade B erosive esophagitis. The stomach was desufflated. The patient tolerated the procedure well. FINDINGS: Squamocolumnar junction 37 cm from the incisors. Diaphragmatic hiatus at 37 cm. Hill grade 2 lower esophageal valve. LA grade B erosive esophagitis. Cold forceps biopsies obtained of duodenum and antrum Chronic gastritis RECOMMENDATIONS: Upper endoscopy as needed. Plan - Discharge Summary New Discharge Prescriptions: Continue Pantoprazole Sodium [Protonix] 40 mg PO DAILY Albuterol Sulfate [Albuterol Sulfate Hfa] 2 puff INHALATION RT-Q6H PRN PRN Reason: Shortness Of Breath Acetaminophen Tab [Tylenol] 500 mg PO Q6H PRN PRN Reason: Pain Discharge Medication List Acetaminophen Tab [Tylenol] 500 mg PO Q6H PRN 02/21/22 [History] Albuterol Sulfate [Albuterol Sulfate Hfa] 2 puff INHALATION RT-Q6H PRN 02/21/22 [History] Pantoprazole Sodium [Protonix] 40 mg PO DAILY 02/21/22 [History] Follow up Appointment(s)/Referral(s): Marley Ivan MD [STAFF PHYSICIAN] - 07/16/22 Patient Instructions/Handouts: Diet for Stomach Ulcers and Gastritis (ED), GERD (Gastroesophageal Reflux Disease) (DC) Discharge Disposition: HOME SELF-CARE
[2022-06-19 11:30] VITALS: BP 124/82; PULSE 68
== END 2022-06-19 11:51 | disposition home or self-care (01) ==
LOC: ORWHC2ENDO 09:25
PROVIDERS: ATTEND Surgery Plastic and Reconstructive Surgery
DX: K21.00 Gastro-esophageal reflux disease with esophagitis, without bleeding (principal); E66.01 Morbid (severe) obesity due to excess calories; K92.0 Hematemesis; K22.10 Ulcer of esophagus without bleeding; J45.909 Unspecified asthma, uncomplicated; Z86.16 Personal history of COVID-19; Z90.49 Acquired absence of other specified parts of digestive tract; Z87.891 Personal history of nicotine dependence; Z79.899 Other long term (current) drug therapy; Z88.2 Allergy status to sulfonamides; Z88.8 Allergy status to other drugs, medicaments and biological substances; Z88.0 Allergy status to penicillin; Z68.29 Body mass index [BMI] 29.0-29.9, adult
CPT/HCPCS: 43239; J2250; J3010; J2704; J2001; 88305

== ENCOUNTER → 2022-06-25 | Outpatient (CLI) | payer OTHER ==
--- NOTE | 2022-06-25 16:03 | MR ---
EXAMINATION TYPE: MR cervical spine wo con DATE OF EXAM: 06/25/2022 INDICATION: Patient age:Male; 37 years old; Reason for study: M54.12 RADICULOPATHY, CERVICAL REGION; PHH. Neck pain into left arm, headaches, rad iculopathy COMPARISON: Spine radiograph 11/21/2021. TECHNIQUE: Multi planar, multi sequence imaging was performed utilizing: T1-weighted, T2-weighted, an d turbo inversion recovery imaging of the cervical spine. IV Contrast: FINDINGS: Motion artifact limits evaluation slightly. Alignment: The cervical vertebral bodies have preserved heights. Alignment is within normal limits gi endy patient positioning. Bones: No abnormal bone marrow edema on inversion recovery sequences. T3 vertebral body high T2/highe r T1 signal vertebral body hemangioma. Scattered mild osteophyte formation of the vertebral bodies with facet joint uncovertebral joint arth ropathy. Cord: The spinal cord is unremarkable with regards to their signal intensity and morphology. Discs: Intervertebral disc signal is maintained. C2-C3: No significant disc pathology. The spinal canal is patent. No neural foraminal stenosis. C3-C4: A disc osteophyte complex is present with mild spinal canal stenosis. Bilateral facet and unc overtebral joint arthropathy are present with moderate to severe right neural foraminal stenosis. C4-C5: A disc osteophyte complex is present which minimally narrows the ventral subarachnoid space. Bilateral facet and uncovertebral joint arthropathy are present with mild right neural foraminal claudy nosis. The left neural foramen is patent. C5-C6: A disc osteophyte complex is present which minimally narrows the ventral subarachnoid space. Bilateral facet and uncovertebral joint arthropathy are present with moderate to severe right and mi ld left neural foraminal stenosis. C6-C7: A disc osteophyte complex is present with mild to moderate spinal canal stenosis. Bilateral f acet and uncovertebral joint arthropathy are present with mild bilateral neural foraminal stenosis. C7-T1: A disc osteophyte complex is present which minimally narrows the ventral subarachnoid space. No neural foraminal stenosis. Other: None. IMPRESSION: 1. No evidence for disc herniation or significant spinal canal stenosis. Mild to moderate C6-C7 spina l canal stenosis. 2. Mild disc degeneration with associated osteoarthritic changes worse on the right with moderate to severe neural foraminal stenosis. No significant left neural foraminal stenosis identified.
== END | disposition home or self-care (01) ==
LOC: RADMRIMAIN 14:52
PROVIDERS: ATTEND Family Medicine
DX: M47.22 Other spondylosis with radiculopathy, cervical region (principal); M50.121 Cervical disc disorder at C4-C5 level with radiculopathy; M48.02 Spinal stenosis, cervical region; M99.73 Connective tissue and disc stenosis of intervertebral foramina of lumbar region
CPT/HCPCS: 72141

== ENCOUNTER 2022-08-06 09:26 | Emergency (ER) | payer OTHER ==
[2022-08-06 09:41] VITALS: TEMP 98.7
[2022-08-06] MEDS ORDERED: PANTOPRAZOLE 40 MG/10 ML VIAL IVP STA (09:55)
[2022-08-06] MEDS ORDERED: SODIUM CHLORIDE 0.9% 1,000 ML IV STA (09:55)
[2022-08-06] MEDS ORDERED: KETOROLAC 15 MG/ML 1 ML VIAL IVP STA (09:55)
[2022-08-06] MEDS ORDERED: ONDANSETRON 4 MG/2 ML VIAL IVP STA (09:55)
[2022-08-06 10:21] LABS: Basophils % (A) 0 %; Eosinophils # (A) 0.1 k/uL (0-0.7); Eosinophils % (A) 2 %; HCT 49.6 % (39.0-53.0); HGB 16.9 gm/dL (13.0-17.5); Lymphocytes # (A) 0.3 k/uL (1.0-4.8); Lymphocytes % (A) 4 %; MCH 28.9 pg (25.0-35.0); MCHC 34.2 g/dL (31.0-37.0); MCV 84.5 fL (80.0-100.0); Mean Platelet Volume 7.7; Monocytes # (A) 0.4 k/uL (0-1.0); Monocytes % (A) 6 %; Neutrophils # (A) 5.4 k/uL (1.3-7.7); Neutrophils % (A) 86 %; Platelet Count 200 k/uL (150-450); RBC 5.87 m/uL (4.30-5.90); RDW 12.5 % (11.5-15.5); WBC 6.2 k/uL (3.8-10.6)
--- NOTE | 2022-08-06 10:25 | ED ---
General Adult HPI - General Chief complaint: Abdominal Pain Stated complaint: Abd pain/back pain Time Seen by Provider: 08/06/22 09:48 Source: patient, RN notes reviewed, old records reviewed Mode of arrival: ambulatory Limitations: no limitations - History of Present Illness Initial comments: Patient is a 37-year-old male who presents with Department complaining of abdominal pain. Started yesterday. Is having acute on chronic lower back pain as well with it. Denies any saddle anesthesias, urinary or bowel incontinence, or paralysis of the lower extremities. Does endorse diarrhea over the last 2 days as well. Nonbloody. Brown in color. Denies any urinary complaints. Denies much anterior abdominal pain. Denies any chest pain or shortness of breath. No known sick contacts. Mild nausea but no emesis. Took the Covid test yesterday which was negative. Presents for further evaluation today due to the lower back pain as well as the diarrhea. Has a known history of significant degenerative disc disease. States this pain seems to be more in the muscles and is worse with movement of his torso.Denies any recent antibiotic use. - Related Data Home Medications Medication Instructions Recorded Confirmed Acetaminophen Tab [Tylenol] 500 mg PO Q6H PRN 02/21/22 06/19/22 Albuterol Sulfate [Albuterol 2 puff INHALATION RT-Q6H PRN 02/21/22 06/19/22 Sulfate Hfa] Pantoprazole Sodium [Protonix] 40 mg PO DAILY 02/21/22 06/19/22 Allergies Allergy/AdvReac Type Severity Reaction Status Date / Time amoxicillin Allergy Rash/Hives Verified 08/06/22 09:41 diphenhydramine HCl Allergy Tongue Verified 08/06/22 09:41 [From Benadryl] Swells Penicillins Allergy Rash/Hives Verified 08/06/22 09:41 Review of Systems ROS Statement: Those systems with pertinent positive or pertinent negative responses have been documented in the HPI. Review of Systems: CONST: Denies fever EYES: Denies blurry vision ENT: Denies nasal congestion C/V: Denies Chest pain RESP: Denies shortness of breath GI: Endorses diarrhea, lower back pain : Denies dysuria SKIN: Denies rash. MSK: Denies joint pain. NEURO: Denies headache ROS Other: All systems not noted in ROS Statement are negative. Past Medical History Past Medical History: Asthma, GERD/Reflux Additional Past Medical History / Comment(s): cellulitis, Covid 06/2021, 01/2022 History of Any Multi-Drug Resistant Organisms: None Reported Past Surgical History: Appendectomy Additional Past Surgical History / Comment(s): vericose vein stripping Past Psychological History: No Psychological Hx Reported Smoking Status: Never smoker Past Alcohol Use History: None Reported Past Drug Use History: None Reported - Past Family History Family Family Medical History: Coronary Artery Disease (CAD) General Exam - General Exam Comments Initial Comments: General: Appears in no acute distress. HEAD: Normal with no signs of head trauma. EYES: PERRLA, EOMI, conjunctiva normal, no discharge. ENT: Hearing grossly intact, normal oropharynx. RESPIRATORY: Clear breath sounds bilaterally. No wheezes, rales, or rhonchi. C/V: Regular rate and rhythm. S1 and S2 auscultated, peripheral pulses 2+ and intact throughout ABD: Abd is soft, nontender, nondistended. No guarding. No peritoneal signs. EXT: Normal range of motion, no obvious deformity. No midline cervical, thoracic, lumbar spine tenderness to palpation. Paraspinal muscle tenderness to palpation in the lower back. SKIN: No rashes or lesions observed on exposed skin. NEURO: Alert and oriented 4. No focal sensory strength deficits. Limitations: no limitations Course Vital Signs 08/06/22 08/06/22 09:39 10:33 Temperature 98.7 F Pulse Rate 109 H 86 Respiratory 20 18 Rate Blood Pressure 133/92 128/87 O2 Sat by Pulse 99 98 Oximetry Medical Decision Making - Medical Decision Making Was pt. sent in by a medical professional or institution (, PA, HOME HEALTH REGISTERED NURSE, urgent care, hospital, or care home...) When possible be specific @ -No Did you speak to anyone other than the patient for history (EMS, parent, family, police, friend...)? What history was obtained from this source @ -No Did you review nursing and triage notes (agree or disagree)? Why? @ -I reviewed and agree with nursing and triage notes Were old charts reviewed (outside hosp., previous admission, EMS record, old EKG, old radiological studies, urgent care reports/EKG's, care home records)? Report findings @ -No old charts were reviewed Differential Diagnosis (chest pain, altered mental status, abdominal pain women, abdominal pain men, vaginal bleeding, weakness, fever, dyspnea, syncope, headache, dizziness, GI bleed, back pain, seizure, CVA, palpatations, mental health, musculoskeletal)? @ -Differential Abdominal Pain Women: Appendicitis, Cholecystitis, diverticulosis, ischemic bowel, pancreatitis, hepatitis, UTI, gastroenteritis, AAA, incarcerated hernia, bowel obstruction, c onstipation, inflammatory bowel, hepatitis, peptic ulcer disease, splenic infarction, perforated viscus, vulvitis, ovarian torsion, PID, kidney stone, placenta abruption, this is not meant to be an all-inclusive list EKG interpreted by me (3pts min.). @ -As above X-rays interpreted by me (1pt min.). @ -Chest x-ray reveals no obvious acute cardio primary process. CT interpreted by me (1pt min.). @ -None done U/S interpreted by me (1pt. min.). @ -None done What testing was considered but not performed or refused? (CT, X-rays, U/S, labs)? Why? @ -None What meds were considered but not given or refused? Why? @ -None Did you discuss the management of the patient with other professionals (professionals i.e. , PA, HOME HEALTH REGISTERED NURSE, lab, RT, psych nurse, delinquency prevention social worker, veneer sheet repairer, teacher, deck officer, showcase trimmer)? Give summary @ -No Was smoking cessation discussed for >3mins.? @ -No Was critical care preformed (if so, how long)? @ -No Were there social determinants of health that impacted care today? How? (Homelessness, low income, unemployed, alcoholism, drug addiction, transportation, low edu. Level, literacy, decrease access to med. care, senior living, rehab)? @ -No Was there de-escalation of care discussed even if they declined (Discuss DNR or withdrawal of care, Hospice)? DNR status @ -No What co-morbidities impacted this encounter? (DM, HTN, Smoking, COPD, CAD, Cancer, CVA, ARF, Chemo, Hep., AIDS, mental health diagnosis, sleep apnea, morbid obesity)? @ -None Was patient admitted / discharged? Hospital course, mention meds given and route, prescriptions, significant lab abnormalities, going to OR and other pertinent info. @ -Based on the patient's presentation and physical exam, presents with low back pain and diarrhea. We will obtain abdominal laboratory studies, Covid screening, chest x-ray likely CT abdomen and pelvis. He was in agreement this plan. Vital signs within acceptable limits. We sent likely treatment with IV fluids, Zofran, Protonix, Toradol. Patient's laboratory studies are within is supple limits. Chest x-ray shows no obvious acute cardio pulmonary process. Covid, flu, RSV negative. On reevaluation, patient has resolution of his symptoms. His no pain. I did offer and CT imaging at this time despite having low concerned but she declines. He will return if needed. Discussed staying hydrated. Believes it may be related to food he ate yesterday. Patient be discharged home at this time with strict return precautions. I instructed the patient to follow up with their PCP in the next 1-3 days. I explained that the patient should return to the emergency department if they experience any worsening symptoms. Strict return precautions were discussed with the patient. The patient expressed understanding of these instructions. I answered all questions that the patient had. The patient was discharged home in good condition with their prescriptions and follow up information. Undiagnosed new problem with uncertain prognosis? @ -No Drug Therapy requiring intensive monitoring for toxicity (Heparin, Nitro, Insulin, Cardizem)? @ -No Were any procedures done? @ -No Diagnosis/symptom? @ -Abdominal pain of unknown etiology, diarrhea Acute, or Chronic, or Acute on Chronic? @ -Acute Uncomplicated (without systemic symptoms) or Complicated (systemic symptoms)? @ -Uncomplicated Side effects of treatment? @ -none Exacerbation, Progression, or Severe Exacerbation] @ -no Poses a threat to life or bodily function? @ -no - Lab Data Result diagrams: 08/06/22 10:07 08/06/22 10:07 Lab Results 08/06/22 08/06/22 08/06/22 Range/Units 10:07 10:07 10:07 WBC 6.2 (3.8-10.6) k/uL RBC 5.87 (4.30-5.90) m/uL Hgb 16.9 (13.0-17.5) gm/dL Hct 49.6 (39.0-53.0) % MCV 84.5 (80.0-100.0) fL MCH 28.9 (25.0-35.0) pg MCHC 34.2 (31.0-37.0) g/dL RDW 12.5 (11.5-15.5) % Plt Count 200 (150-450) k/uL MPV 7.7 Neutrophils % 86 % Lymphocytes % 4 % Monocytes % 6 % Eosinophils % 2 % Basophils % 0 % Neutrophils # 5.4 (1.3-7.7) k/uL Lymphocytes # 0.3 L (1.0-4.8) k/uL Monocytes # 0.4 (0-1.0) k/uL Eosinophils # 0.1 (0-0.7) k/uL Basophils # 0.0 (0-0.2) k/uL PT 10.3 (9.0-12.0) sec INR 1.0 (<1.2) APTT 24.7 (22.0-30.0) sec Sodium (137-145) mmol/L Potassium (3.5-5.1) mmol/L Chloride (98-107) mmol/L Carbon Dioxide (22-30) mmol/L Anion Gap mmol/L BUN (9-20) mg/dL Creatinine (0.66-1.25) mg/dL Est GFR (CKD-EPI)AfAm (>60 ml/min/1.73 sqM) Est GFR (CKD-EPI)NonAf (>60 ml/min/1.73 sqM) Glucose (74-99) mg/dL Plasma Lactic Acid Smion (0.7-2.0) mmol/L Calcium (8.4-10.2) mg/dL Total Bilirubin (0.2-1.3) mg/dL AST (17-59) U/L ALT (4-49) U/L Alkaline Phosphatase (38-126) U/L Total Protein (6.3-8.2) g/dL Albumin (3.5-5.0) g/dL Amylase (30-110) U/L Lipase (23-300) U/L Urine Color Yellow Urine Appearance Clear (Clear) Urine pH 6.0 (5.0-8.0) Ur Specific Hellier 1.023 (1.001-1.035) Urine Protein Trace H (Negative) Urine Glucose (UA) Negative (Negative) Urine Ketones Negative (Negative) Urine Blood Negative (Negative) Urine Nitrite Negative (Negative) Urine Bilirubin Negative (Negative) Urine Urobilinogen <2.0 (<2.0) mg/dL Ur Leukocyte Esterase Negative (Negative) Influenza Type A (PCR) (Not Detectd) Influenza Type B (PCR) (Not Detectd) RSV (PCR) (Not Detectd) SARS-CoV-2 (PCR) (Not Detectd) 08/06/22 08/06/22 08/06/22 Range/Units 10:07 10:07 10:07 WBC (3.8-10.6) k/uL RBC (4.30-5.90) m/uL Hgb (13.0-17.5) gm/dL Hct (39.0-53.0) % MCV (80.0-100.0) fL MCH (25.0-35.0) pg MCHC (31.0-37.0) g/dL RDW (11.5-15.5) % Plt Count (150-450) k/uL MPV Neutrophils % % Lymphocytes % % Monocytes % % Eosinophils % % Basophils % % Neutrophils # (1.3-7.7) k/uL Lymphocytes # (1.0-4.8) k/uL Monocytes # (0-1.0) k/uL Eosinophils # (0-0.7) k/uL Basophils # (0-0.2) k/uL PT (9.0-12.0) sec INR (<1.2) APTT (22.0-30.0) sec Sodium 138 (137-145) mmol/L Potassium 4.4 (3.5-5.1) mmol/L Chloride 104 (98-107) mmol/L Carbon Dioxide 24 (22-30) mmol/L Anion Gap 10 mmol/L BUN 23 H (9-20) mg/dL Creatinine 1.04 (0.66-1.25) mg/dL Est GFR (CKD-EPI)AfAm >90 (>60 ml/min/1.73 sqM) Est GFR (CKD-EPI)NonAf >90 (>60 ml/min/1.73 sqM) Glucose 133 H (74-99) mg/dL Plasma Lactic Acid Simon 1.2 (0.7-2.0) mmol/L Calcium 8.8 (8.4-10.2) mg/dL Total Bilirubin 1.1 (0.2-1.3) mg/dL AST 35 (17-59) U/L ALT 40 (4-49) U/L Alkaline Phosphatase 76 (38-126) U/L Total Protein 6.6 (6.3-8.2) g/dL Albumin 4.1 (3.5-5.0) g/dL Amylase 48 (30-110) U/L Lipase 80 (23-300) U/L Urine Color Urine Appearance (Clear) Urine pH (5.0-8.0) Ur Specific Hellier (1.001-1.035) Urine Protein (Negative) Urine Glucose (UA) (Negative) Urine Ketones (Negative) Urine Blood (Negative) Urine Nitrite (Negative) Urine Bilirubin (Negative) Urine Urobilinogen (<2.0) mg/dL Ur Leukocyte Esterase (Negative) Influenza Type A (PCR) Not Detected (Not Detectd) Influenza Type B (PCR) Not Detected (Not Detectd) RSV (PCR) Not Detected (Not Detectd) SARS-CoV-2 (PCR) Not Detected (Not Detectd) Disposition Clinical Impression: Acute diarrhea, Musculoskeletal pain, Abdominal pain of unknown cause Disposition: HOME SELF-CARE Condition: Good Is patient prescribed a controlled substance at d/c from ED?: No Referrals: Oli Metcalf DO [Primary Care Provider] - 1-2 days Time of Disposition: 11:52
--- NOTE | 2022-08-06 10:27 | XR ---
EXAMINATION TYPE: XR chest 1V portable DATE OF EXAM: 08/06/2022 Comparison: 03/18/2022 Clinical History: 37-year-old male abdominal pain Findings: Heart and lungs are normal in size. Mild interstitial prominence as a chronic appearance. Hazy densit ies relating to portable technique and patient body habitus. No sharee consolidation or pleural effusi on. Impression: No acute cardiopulmonary process.
[2022-08-06 10:29] LABS: Partial Thromboplastin Time 24.7 sec (22.0-30.0); Prothrombin Time 10.3 sec (9.0-12.0)
[2022-08-06 10:34] VITALS: RESP 18
[2022-08-06 10:36] LABS: ALT 40 U/L (4-49); AST 35 U/L (17-59); African American GFR (CKD) >90 (>60 ml/min/1.73 sqM); Albumin 4.1 g/dL (3.5-5.0); Alkaline Phosphatase 76 U/L (38-126); Amylase 48 U/L (30-110); Anion Gap 10 mmol/L; Blood Urea Nitrogen 23 mg/dL (9-20); Calcium 8.8 mg/dL (8.4-10.2); Carbon Dioxide 24 mmol/L (22-30); Chloride 104 mmol/L (98-107); Glucose 133 mg/dL (74-99); Lipase 80 U/L (23-300); Non-African American GFR(CKD) >90 (>60 ml/min/1.73 sqM); Potassium 4.4 mmol/L (3.5-5.1); Sodium 138 mmol/L (137-145); Total Bilirubin 1.1 mg/dL (0.2-1.3); Total Protein 6.6 g/dL (6.3-8.2)
[2022-08-06 11:53] LABS: Appearance,Urine Clear (Clear); Bilirubin,Urine Negative (Negative); Blood,Urine Negative (Negative); Color,Urine Yellow; Glucose,Urine (UA) Negative (Negative); Ketones,Urine Negative (Negative); Leukocyte Esterase,Urine Negative (Negative); Nitrite,Urine Negative (Negative); Protein,Urine Trace (Negative); Specific Gravity,Urine 1.023 (1.001-1.035); Urobilinogen,Urine <2.0 mg/dL (<2.0)
[2022-08-06 12:22] VITALS: BP 123/84; PULSE 78
== END 2022-08-06 12:22 | disposition home or self-care (01) ==
LOC: EC 09:26
DX: R10.9 Unspecified abdominal pain (principal); R19.7 Diarrhea, unspecified; M54.50 Low back pain, unspecified; Z20.822 Contact with and (suspected) exposure to COVID-19; J45.909 Unspecified asthma, uncomplicated; K21.9 Gastro-esophageal reflux disease without esophagitis; Z79.899 Other long term (current) drug therapy; Z88.0 Allergy status to penicillin; Z88.8 Allergy status to other drugs, medicaments and biological substances; Z86.16 Personal history of COVID-19; Z90.49 Acquired absence of other specified parts of digestive tract
CPT/HCPCS: 36415; 80053; 82150; 83605; 83690; 85025; 85610; 85730; 81003; 87636; 71045; 99284; 96374; 96375 ×2; 96361 ×2; J2405; J1885; C9113

== ENCOUNTER 2022-08-07 20:57 | Emergency (ER) | payer OTHER ==
[2022-08-07 21:01] VITALS: RESP 20
[2022-08-07] MEDS ORDERED: KETOROLAC 15 MG/ML 1 ML VIAL IM STA (21:13)
--- NOTE | 2022-08-07 21:16 | ED ---
Nausea/Vomiting/Diarrhea HPI - General Chief complaint: Nausea/Vomiting/Diarrhea Stated complaint: Side Pain Time Seen by Provider: 08/07/22 21:03 Source: patient, RN notes reviewed, old records reviewed Limitations: no limitations - History of Present Illness Initial comments: This is a nontoxic-appearing 37-year-old male who presents ambulatory with complaints of diarrhea since Friday and lower back pain, feels like someone has punched him multiple times in his lower back. States was seen in the emergency room yesterday for same and labs were done and normal. He was tested for influenza and coronavirus yesterday also negative. He states he was told to increase his fluid intake which he has been doing. Denies any nausea vomiting or fevers. No abdominal pain. Denies any hematuria. History of appendectomy and GERD. He states he does have an appointment with his doctor tomorrow at 4:00. MD complaint: diarrhea, other (back pain) -: days(s) (3) Description of Diarrhea: green Associated Abdominal Pain: No Severity scale (1-10): 8 Quality: aching Consistency: constant Improves with: none Associated Symptoms: denies other symptoms - Related Data Home Medications Medication Instructions Recorded Confirmed Acetaminophen Tab [Tylenol] 1,000 mg PO Q6H PRN 02/21/22 08/07/22 Albuterol Sulfate [Albuterol 2 puff INHALATION RT-Q6H PRN 02/21/22 08/07/22 Sulfate Hfa] Pantoprazole Sodium [Protonix] 40 mg PO DAILY 02/21/22 08/07/22 Allergies Allergy/AdvReac Type Severity Reaction Status Date / Time amoxicillin Allergy Rash/Hives Verified 08/07/22 21:24 diphenhydramine HCl Allergy Tongue Verified 08/07/22 21:24 [From Benadryl] Swells Penicillins Allergy Rash/Hives Verified 08/07/22 21:24 Review of Systems ROS Statement: Those systems with pertinent positive or pertinent negative responses have been documented in the HPI. ROS Other: All systems not noted in ROS Statement are negative. Past Medical History Past Medical History: Asthma, GERD/Reflux Additional Past Medical History / Comment(s): cellulitis, Covid 06/2021, 01/2022 History of Any Multi-Drug Resistant Organisms: None Reported Past Surgical History: Appendectomy Additional Past Surgical History / Comment(s): vericose vein stripping Past Psychological History: No Psychological Hx Reported Smoking Status: Never smoker Past Alcohol Use History: None Reported Past Drug Use History: None Reported - Past Family History Family Family Medical History: Coronary Artery Disease (CAD) General Exam Limitations: no limitations General appearance: alert, in no apparent distress Head exam: Present: atraumatic Eye exam: Present: normal appearance. Absent: scleral icterus, conjunctival injection, periorbital swelling, periorbital tenderness ENT exam: Present: normal exam, normal oropharynx, mucous membranes moist Neck exam: Present: full ROM. Absent: tenderness, meningismus Respiratory exam: Present: normal lung sounds bilaterally. Absent: respiratory distress, accessory muscle use Cardiovascular Exam: Present: tachycardia GI/Abdominal exam: Present: soft. Absent: distended, tenderness, guarding, rebound, rigid Extremities exam: Present: normal capillary refill. Absent: pedal edema Back exam: Present: normal inspection, full ROM. Absent: tenderness, CVA tenderness (R), CVA tenderness (L), rash noted Neurological exam: Present: alert, oriented X3, CN II-XII intact, normal gait Psychiatric exam: Present: normal affect, normal mood Skin exam: Present: warm, dry, normal color. Absent: cyanosis, diaphoretic, petechiae, pallor Course Vital Signs 08/07/22 08/07/22 20:59 21:57 Temperature 98.9 F 98.8 F Pulse Rate 103 H 100 Respiratory 20 20 Rate Blood Pressure 140/74 141/80 O2 Sat by Pulse 96 96 Oximetry Medical Decision Making - Medical Decision Making Patient presents with continued green diarrhea since Friday. Patient believes eating chicken Thai on Friday that caused his symptoms. He is concerned that he may have food poisoning. He denies any fevers, nausea or vomiting and has been hydrating well. States he does have a decreased appetite but denies any abdominal pain. States reason for return visit is ache in lower back. States diarrhea is not bloody but green in color. Does not seem to be getting worse. On physical exam abdomen is soft and nontender. No CVA tenderness. Yesterday ER visit and labs were reviewed showing no evidence of leukocytosis, electrolytes are unremarkable. Lactic acid was negative. Urinalysis was negative. Influenza coronavirus swabs were negative. Stool specimen was sent for culture. Patient was given a shot of Toradol for pain relief. He states he does have an appointment with his doctor tomorrow. Patient has a history of appendectomy and GERD. Patient is agreeable to discharge and following up with his primary care doctor as scheduled. Strict return parameters were discussed. Case discussed with Dr. Tirado. Was pt. sent in by a medical professional or institution (, PA, MOLD LOFT WORKER, urgent care, hospital, or [facility]...) When possible be specific @ -No Did you speak to anyone other than the patient for history (EMS, parent, family, police, friend...)? What history was obtained from this source @ -No Did you review nursing and triage notes (agree or disagree)? Why? @ -I reviewed and agree with nursing and triage notes Were old charts reviewed (outside hosp., previous admission, EMS record, old EKG, old radiological studies, urgent care reports/EKG's, [facility] records)? Report findings @ -ER visit and Labs from yesterday Differential Diagnosis (chest pain, altered mental status, abdominal pain women, abdominal pain men, vaginal bleeding, weakness, fever, dyspnea, syncope, headache, dizziness, GI bleed, back pain, seizure, CVA, palpatations, mental health, musculoskeletal)? @ -Infectious diarrhea, salmonella, GI bleed, appendicitis, diverticulitis EKG interpreted by me (3pts min.). @ -n/a X-rays interpreted by me (1pt min.). @ -None done CT interpreted by me (1pt min.). @ -None done U/S interpreted by me (1pt. min.). @ -None done What testing was considered but not performed or refused? (CT, X-rays, U/S, labs)? Why? @ -Labs considered however performed yesterday. CT of the abdomen was considered to rule out appendicitis however patient has had an appendectomy. Denies any abdominal pain. Abdomen is soft and nontender. Afebrile. What meds were considered but not given or refused? Why? @ -None Did you discuss the management of the patient with other professionals (professionals i.e. , [employer]ORE[employer], MOLD LOFT WORKER, lab, RT, psych nurse, criminal justice social worker, senior information systems architect, teacher, transit police officer, insurance case manager)? Give summary @ -No Was smoking cessation discussed for >3mins.? @ -No Was critical care preformed (if so, how long)? @ -No Were there social determinants of health that impacted care today? How? (Homelessness, low income, unemployed, alcoholism, drug addiction, transportation, low edu. Level, literacy, decrease access to med. care, half-way, rehab)? @ -No Was there de-escalation of care discussed even if they declined (Discuss DNR or withdrawal of care, Hospice)? DNR status @ -No What co-morbidities impacted this encounter? (DM, HTN, Smoking, COPD, CAD, Cancer, CVA, ARF, Chemo, Hep., AIDS, mental health diagnosis, sleep apnea, morbid obesity)? @ -Obesity, GERD Was patient admitted / discharged? Hospital course, mention meds given and route, prescriptions, significant lab abnormalities, going to OR and other pertinent info. @ -discharged Undiagnosed new problem with uncertain prognosis? @ -No Drug Therapy requiring intensive monitoring for toxicity (Heparin, Nitro, Insulin, Cardizem)? @ -No Were any procedures done? @ -No Diagnosis/symptom? @ -Acute diarrhea, musculoskeletal pain Acute, or Chronic, or Acute on Chronic? @ -Acute Uncomplicated (without systemic symptoms) or Complicated (systemic symptoms)? @ -Uncomplicated Side effects of treatment? @ -No Exacerbation, Progression, or Severe Exacerbation? @ -No Poses a threat to life or bodily function? How? (Chest pain, [place], [place], pneumonia, PE, COPD, DKA, ARF, appy, cholecystitis, CVA, Diverticulitis, Homicidal, Suicidal, threat to staff... and all critical care pts) @ -No Disposition Clinical Impression: Diarrhea, Musculoskeletal back pain Disposition: HOME SELF-CARE Condition: Good Instructions (If sedation given, give patient instructions): Acute Diarrhea (ED), Back Pain (ED), Lower Back Exercises (ED) Additional Instructions: Continue to increase your fluid intake. Tylenol and/or Motrin as needed for pain or discomfort. Follow-up with your doctor as scheduled tomorrow. Return to the emergency room with any new or concerning symptoms including persistent nausea vomiting, fevers or abdominal pain. Is patient prescribed a controlled substance at d/c from ED?: No Referrals: Oli Metcalf DO [Primary Care Provider] - 1-2 days Time of Disposition: 21:32
[2022-08-07 21:59] VITALS: BP 141/80; PULSE 100; TEMP 98.8
== END 2022-08-07 21:59 | disposition home or self-care (01) ==
LOC: EC 20:57
DX: R19.7 Diarrhea, unspecified (principal); M54.9 Dorsalgia, unspecified; J45.909 Unspecified asthma, uncomplicated; K21.9 Gastro-esophageal reflux disease without esophagitis; Z79.899 Other long term (current) drug therapy; Z88.0 Allergy status to penicillin; Z88.8 Allergy status to other drugs, medicaments and biological substances
CPT/HCPCS: 99284; 96372; J1885; 87045; 87046

== ENCOUNTER 2022-11-20 15:27 | Emergency (ER) | payer OTHER ==
[2022-11-20 15:33] VITALS: TEMP 98.3
[2022-11-20 15:49] LABS: Glucose,Whole Blood 93 mg/dL (70-110)
[2022-11-20] MEDS ORDERED: SODIUM CHLORIDE 0.9% 1,000 ML IV STA (16:07)
--- NOTE | 2022-11-20 16:25 | ED ---
General Adult HPI - General Chief complaint: Neuro Symptoms/Deficit Stated complaint: left side numbness Time Seen by Provider: 11/20/22 15:35 Source: patient, RN notes reviewed, old records reviewed Mode of arrival: wheelchair Limitations: no limitations - History of Present Illness Initial comments: Patient is a 37-year-old male with known spine issues with multiple degenerative disks as well as bulging disks per patient presents to the emergency Department complaining of sudden onset of left-sided numbness in September which is going to fall asleep prior to arrival. Patient was at work when this happened. Was eating lunch when this happened. He states this all happened suddenly and passed within 10 minutes. He states it was kind of hard to walk because he was feeling lightheaded when all this was going on. States he is back to his normal self at this time. States he has chronic low back pain. Denies any new surgeries or injuries. Denies saddle anesthesias. Denies urinary or bowel incontinence or retention. Denies leg paralysis. His no other acute complaints at this time other than some indigestion. Denies any sharee chest pain or shortness of breath. Denies any pelvic pain, nausea, vomiting. No known recent sick contacts that he has been coughing intermittently for the last few weeks and does have a history of mild asthma. Does have an inhaler at home. Presents for further evaluation at this time. - Related Data Home Medications Medication Instructions Recorded Confirmed Pantoprazole Sodium [Protonix] 40 mg PO DAILY 02/21/22 11/20/22 Ibuprofen [Motrin Ib] 400 - 800 mg PO Q8H PRN 08/09/22 11/20/22 Allergies Allergy/AdvReac Type Severity Reaction Status Date / Time amoxicillin Allergy Rash/Hives Verified 11/20/22 17:22 diphenhydramine HCl Allergy Tongue Verified 11/20/22 17:22 [From Benadryl] Swells Penicillins Allergy Rash/Hives Verified 11/20/22 17:22 Review of Systems ROS Statement: Those systems with pertinent positive or pertinent negative responses have been documented in the HPI. Review of Systems: CONST: Denies fever EYES: Denies blurry vision ENT: Denies nasal congestion C/V: Denies Chest pain RESP: Denies shortness of breath GI: Denies abdominal pain : Denies dysuria SKIN: Denies rash. MSK: Denies joint pain. NEURO: Denies headache ROS Other: All systems not noted in ROS Statement are negative. Past Medical History Past Medical History: Asthma, GERD/Reflux, Musculoskeletal Disorder Additional Past Medical History / Comment(s): cellulitis, Covid 06/2021, 01/2022, cervical disc disease History of Any Multi-Drug Resistant Organisms: None Reported Past Surgical History: Appendectomy Additional Past Surgical History / Comment(s): vericose vein stripping Past Psychological History: No Psychological Hx Reported Smoking Status: Never smoker Past Alcohol Use History: None Reported Past Drug Use History: None Reported - Past Family History Family Family Medical History: Coronary Artery Disease (CAD) General Exam - General Exam Comments Initial Comments: General: Appears in no acute distress. HEAD: Normal with no signs of head trauma. EYES: PERRLA, EOMI, conjunctiva normal, no discharge. ENT: Hearing grossly intact, normal oropharynx. RESPIRATORY: Clear breath sounds bilaterally. No wheezes, rales, or rhonchi. C/V: Regular rate and rhythm. S1 and S2 auscultated, no edema, peripheral pulses 2+ and intact throughout ABD: Abd is soft, nontender, nondistended EXT: Normal range of motion, no obvious deformity SKIN: No rashes or lesions observed on exposed skin. NEURO: Alert and oriented x 4. Cranial nerves II-XII intact. No focal sensory or strength deficits. GCS of 15. NIH of 0. Cerebellar function intact as evident by normal finger to nose and heel to jeffries testing. No focal deficits at this time. Limitations: no limitations Course Vital Signs 11/20/22 11/20/22 11/20/22 15:30 15:48 16:00 Temperature 98.3 F Pulse Rate 97 91 100 Respiratory 20 Rate Blood Pressure 130/84 110/86 O2 Sat by Pulse 96 97 Oximetry 11/20/22 17:00 Temperature Pulse Rate 79 Respiratory 16 Rate Blood Pressure 115/92 O2 Sat by Pulse 98 Oximetry Medical Decision Making - Medical Decision Making Was pt. sent in by a medical professional or institution (, PA, RETAIL SELLING SPECIALIST, urgent care, hospital, or fdc...) When possible be specific @ -No Did you speak to anyone other than the patient for history (EMS, parent, family, police, friend...)? What history was obtained from this source @ -No Did you review nursing and triage notes (agree or disagree)? Why? @ -I reviewed and agree with nursing and triage notes Were old charts reviewed (outside hosp., previous admission, EMS record, old EKG, old radiological studies, urgent care reports/EKG's, fdc records)? Report findings @ -No old charts were reviewed Differential Diagnosis (chest pain, altered mental status, abdominal pain women, abdominal pain men, vaginal bleeding, weakness, fever, dyspnea, syncope, headache, dizziness, GI bleed, back pain, seizure, CVA, palpatations, mental health, musculoskeletal)? @ -Near syncope episode, lightheadedness, dehydration, electrolyte abnormality, CVA, TIA, URI, COVID-19 infection. This list is not all-inclusive. EKG interpreted by me (3pts min.). @ -As above X-rays interpreted by me (1pt min.). @ -Chest x-ray reveals no obvious acute cardio pulmonary, process. CT interpreted by me (1pt min.). @ -CT brain reveals no obvious acute intracranial process or injury. U/S interpreted by me (1pt. min.). @ -None done What testing was considered but not performed or refused? (CT, X-rays, U/S, labs)? Why? @ -None What meds were considered but not given or refused? Why? @ -None Did you discuss the management of the patient with other professionals (professionals i.e. , PA, RETAIL SELLING SPECIALIST, lab, RT, psych nurse, social scientist, fiberglass tube molder, teacher, guest services officer, complex case manager)? Give summary @ -No Was smoking cessation discussed for >3mins.? @ -No Was critical care preformed (if so, how long)? @ -No Were there social determinants of health that impacted care today? How? (Homelessness, low income, unemployed, alcoholism, drug addiction, transportation, low edu. Level, literacy, decrease access to med. care, half-way, rehab)? @ -No Was there de-escalation of care discussed even if they declined (Discuss DNR or withdrawal of care, Hospice)? DNR status @ -No What co-morbidities impacted this encounter? (DM, HTN, Smoking, COPD, CAD, Cancer, CVA, ARF, Chemo, Hep., AIDS, mental health diagnosis, sleep apnea, morbid obesity)? @ -None Was patient admitted / discharged? Hospital course, mention meds given and route, prescriptions, significant lab abnormalities, going to OR and other pertinent info. @ -Based on patient's presentation and physical exam, had a strange episode of possible sensory loss earlier today however currently has no symptoms. Does have a extensive history of chronic back pain with bulging disks with no obvious new injuries. No concern for cauda equina syndrome at this time. Neuro exam is normal. However we will obtain CT brain as well as basic labs, chest x-ray, screening EKG and viral swabs. Patient was in agreement with this plan. NIH is 0. Vital signs are within acceptable limits. Patient presents for those symptoms which is since resolved and is not a candidate for stroke activation at this time and is also not a candidate for TPA at this time as brisk far out weigh the benefits as the patient has no symptoms right now.. EKG shows no signs of ischemia.Patient's imaging is unremarkable. Labs are all within acceptable limits. After the patient at this time. NIH remains 0. He would like to go home and I believe this is reasonable. Unknown what caused his symptoms earlier. He did discuss that it could've been a TIA but also could've been related to radiculopathy or near syncopal episode. Either way, patient will leave. Recommended to take a daily aspirin. He was in agreement with this plan. States he Will follow up with his PCP. Strict return precautions were discussed. I instructed the patient to follow up with their PCP in the next 1-3 days. I explained that the patient should return to the emergency department if they experience any worsening symptoms. Strict return precautions were discussed with the patient. The patient expressed understanding of these instructions. I ans wered all questions that the patient had. The patient was discharged home in good condition with their prescriptions and follow up information. Undiagnosed new problem with uncertain prognosis? @ -No Drug Therapy requiring intensive monitoring for toxicity (Heparin, Nitro, Insulin, Cardizem)? @ -No Were any procedures done? @ -No Diagnosis/symptom? @ -Near syncope, radiculopathy Acute, or Chronic, or Acute on Chronic? @ -Acute Uncomplicated (without systemic symptoms) or Complicated (systemic symptoms)? @ -Complicated Side effects of treatment? @ -none Exacerbation, Progression, or Severe Exacerbation] @ -no Poses a threat to life or bodily function? @ -no - Lab Data Result diagrams: 11/20/22 16:13 11/20/22 16:13 Lab Results 11/20/22 11/20/22 11/20/22 Range/Units 15:47 16:13 16:13 WBC 5.0 (3.8-10.6) k/uL RBC 5.33 (4.30-5.90) m/uL Hgb 15.6 (13.0-17.5) gm/dL Hct 45.8 (39.0-53.0) % MCV 85.9 (80.0-100.0) fL MCH 29.2 (25.0-35.0) pg MCHC 34.0 (31.0-37.0) g/dL RDW 12.6 (11.5-15.5) % Plt Count 179 (150-450) k/uL MPV 8.2 Neutrophils % 68 % Lymphocytes % 16 % Monocytes % 9 % Eosinophils % 3 % Basophils % 2 % Neutrophils # 3.4 (1.3-7.7) k/uL Lymphocytes # 0.8 L (1.0-4.8) k/uL Monocytes # 0.5 (0-1.0) k/uL Eosinophils # 0.2 (0-0.7) k/uL Basophils # 0.1 (0-0.2) k/uL PT 10.2 (9.0-12.0) sec INR 1.0 (<1.2) APTT 23.4 (22.0-30.0) sec Sodium (137-145) mmol/L Potassium (3.5-5.1) mmol/L Chloride (98-107) mmol/L Carbon Dioxide (22-30) mmol/L Anion Gap mmol/L BUN (9-20) mg/dL Creatinine (0.66-1.25) mg/dL Est GFR (CKD-EPI)AfAm (>60 ml/min/1.73 sqM) Est GFR (CKD-EPI)NonAf (>60 ml/min/1.73 sqM) Glucose (74-99) mg/dL POC Glucose (mg/dL) 93 (70-110) mg/dL POC Glu Eap Consultant ID Yue Lozano Calcium (8.4-10.2) mg/dL Total Bilirubin (0.2-1.3) mg/dL AST (17-59) U/L ALT (4-49) U/L Alkaline Phosphatase (38-126) U/L Creatine Kinase (55-170) U/L Total Protein (6.3-8.2) g/dL Albumin (3.5-5.0) g/dL Influenza Type A (PCR) (Not Detectd) Influenza Type B (PCR) (Not Detectd) RSV (PCR) (Not Detectd) SARS-CoV-2 (PCR) (Not Detectd) 11/20/22 11/20/22 Range/Units 16:13 16:16 WBC (3.8-10.6) k/uL RBC (4.30-5.90) m/uL Hgb (13.0-17.5) gm/dL Hct (39.0-53.0) % MCV (80.0-100.0) fL MCH (25.0-35.0) pg MCHC (31.0-37.0) g/dL RDW (11.5-15.5) % Plt Count (150-450) k/uL MPV Neutrophils % % Lymphocytes % % Monocytes % % Eosinophils % % Basophils % % Neutrophils # (1.3-7.7) k/uL Lymphocytes # (1.0-4.8) k/uL Monocytes # (0-1.0) k/uL Eosinophils # (0-0.7) k/uL Basophils # (0-0.2) k/uL PT (9.0-12.0) sec INR (<1.2) APTT (22.0-30.0) sec Sodium 136 L (137-145) mmol/L Potassium 4.4 (3.5-5.1) mmol/L Chloride 105 (98-107) mmol/L Carbon Dioxide 23 (22-30) mmol/L Anion Gap 8 mmol/L BUN 28 H (9-20) mg/dL Creatinine 1.26 H (0.66-1.25) mg/dL Est GFR (CKD-EPI)AfAm 83 (>60 ml/min/1.73 sqM) Est GFR (CKD-EPI)NonAf 72 (>60 ml/min/1.73 sqM) Glucose 93 (74-99) mg/dL POC Glucose (mg/dL) (70-110) mg/dL POC Glu Eap Consultant ID Calcium 8.8 (8.4-10.2) mg/dL Total Bilirubin 0.7 (0.2-1.3) mg/dL AST 34 (17-59) U/L ALT 31 (4-49) U/L Alkaline Phosphatase 69 (38-126) U/L Creatine Kinase 195 H (55-170) U/L Total Protein 6.5 (6.3-8.2) g/dL Albumin 4.1 (3.5-5.0) g/dL Influenza Type A (PCR) Not Detected (Not Detectd) Influenza Type B (PCR) Not Detected (Not Detectd) RSV (PCR) Not Detected (Not Detectd) SARS-CoV-2 (PCR) Not Detected (Not Detectd) - EKG Data -: EKG Interpreted by Me EKG Comments: 12-lead Electrocardiogram Interpretation Note EKG was reviewed and interpreted by myself. 12-lead ECG performed at 1541 is interpreted by me as revealing normal sinus rhythm at a rate of 87 beats per minute. Sidney is normal. VT interval is 170 ms, QRS duration is 97 ms, QTc is 398 ms. Isolated T-wave inversion in lead III.. There were no acute ST or T wave abnormalities to suggest myocardial ischemia or injury. R wave progression across the precordium was satisfactory. By my interpretation this EKG is non- diagnostic for acute ischemia. Disposition Clinical Impression: Near syncope, Radiculopathy Disposition: HOME SELF-CARE Condition: Good Instructions (If sedation given, give patient instructions): Near Syncope (ED) Is patient prescribed a controlled substance at d/c from ED?: No Referrals: Oli Metcalf DO [Primary Care Provider] - 1-2 days Time of Disposition: 17:24
[2022-11-20 16:26] LABS: Basophils # (A) 0.1 k/uL (0-0.2); Basophils % (A) 2 %; Eosinophils # (A) 0.2 k/uL (0-0.7); Eosinophils % (A) 3 %; HCT 45.8 % (39.0-53.0); HGB 15.6 gm/dL (13.0-17.5); Lymphocytes # (A) 0.8 k/uL (1.0-4.8); Lymphocytes % (A) 16 %; MCH 29.2 pg (25.0-35.0); MCV 85.9 fL (80.0-100.0); Mean Platelet Volume 8.2; Monocytes # (A) 0.5 k/uL (0-1.0); Monocytes % (A) 9 %; Neutrophils # (A) 3.4 k/uL (1.3-7.7); Neutrophils % (A) 68 %; Platelet Count 179 k/uL (150-450); RBC 5.33 m/uL (4.30-5.90); RDW 12.6 % (11.5-15.5)
[2022-11-20] MEDS ORDERED: MAG HYDROX/AL HYDROX/SIMETH 30 ML, HYOSCYAMINE ELIXIR 10 ML, LIDOCAINE 2% GLYDO JELLY 1... PO STA ×3 (16:26)
--- NOTE | 2022-11-20 16:29 | XR ---
EXAMINATION TYPE: XR chest 2V DATE OF EXAM: 11/20/2022 COMPARISON: 08/09/2022 HISTORY: Chest pain TECHNIQUE: Frontal and lateral views of the chest are obtained. FINDINGS: There is no focal air space opacity. No evidence for pneumothorax. No pleural effusion. The cardiac silhouette size is within normal limits. The osseous structures are grossly intact. IMPRESSION: 1. No acute cardiopulmonary process.
[2022-11-20 16:50] LABS: ALT 31 U/L (4-49); AST 34 U/L (17-59); African American GFR (CKD) 83 (>60 ml/min/1.73 sqM); Albumin 4.1 g/dL (3.5-5.0); Alkaline Phosphatase 69 U/L (38-126); Anion Gap 8 mmol/L; Blood Urea Nitrogen 28 mg/dL (9-20); Calcium 8.8 mg/dL (8.4-10.2); Carbon Dioxide 23 mmol/L (22-30); Chloride 105 mmol/L (98-107); Creatine Kinase 195 U/L (55-170); Glucose 93 mg/dL (74-99); Non-African American GFR(CKD) 72 (>60 ml/min/1.73 sqM); Potassium 4.4 mmol/L (3.5-5.1); Sodium 136 mmol/L (137-145); Total Bilirubin 0.7 mg/dL (0.2-1.3); Total Protein 6.5 g/dL (6.3-8.2)
[2022-11-20 16:52] LABS: Partial Thromboplastin Time 23.4 sec (22.0-30.0); Prothrombin Time 10.2 sec (9.0-12.0)
--- NOTE | 2022-11-20 16:57 | CT ---
EXAMINATION TYPE: CT brain wo con DATE OF EXAM: 11/20/2022 COMPARISON: 04/13/2021 INDICATION: LT side numbness DLP: 1189.4 mGycm, Automated exposure control for dose reduction was used. CONTRAST: None CT of the brain is performed utilizing 3 mm thick sections through the posterior fossa and 3 mm thick sections through the remaining calvarium. Study is performed within 24 hours of arrival to the hosp [facility]. No abnormal hyperdensity is present to suggest an acute intracranial hemorrhage. No mass lesion is evident. No acute infarcts are evident. Ventricles and sulci are appropriate for the patient age. Paranasal sinuses and mastoid air cells within the tacoa-nd-nohn are clear. IMPRESSIONS: 1. No acute intracranial process. Follow-up MRI can be performed as clinically indicated.
[2022-11-20 17:47] VITALS: BP 115/92; PULSE 79; RESP 16
== END 2022-11-20 17:50 | disposition home or self-care (01) ==
LOC: EC 15:27
DX: M54.10 Radiculopathy, site unspecified (principal); K21.9 Gastro-esophageal reflux disease without esophagitis; J45.909 Unspecified asthma, uncomplicated; Z79.899 Other long term (current) drug therapy; Z88.0 Allergy status to penicillin; Z88.6 Allergy status to analgesic agent; Z86.16 Personal history of COVID-19; Z88.8 Allergy status to other drugs, medicaments and biological substances
CPT/HCPCS: 36415; 70450; 71046; 80053; 82550; 85025; 85610; 85730; 87636; 93005; 96360; 99284

== ENCOUNTER 2022-12-06 10:43 | Emergency (ER) | payer OTHER ==
[2022-12-06 11:08] VITALS: RESP 18; TEMP 98.7
[2022-12-06] MEDS ORDERED: SODIUM CHLORIDE 0.9% 1,000 ML IV STA (11:57)
[2022-12-06] MEDS ORDERED: KETOROLAC 15 MG/ML 1 ML VIAL IVP STA (11:59)
[2022-12-06 12:17] LABS: Basophils % (A) 1 %; Eosinophils # (A) 0.1 k/uL (0-0.7); Eosinophils % (A) 2 %; HCT 45.9 % (39.0-53.0); HGB 15.6 gm/dL (13.0-17.5); Lymphocytes # (A) 0.6 k/uL (1.0-4.8); Lymphocytes % (A) 13 %; MCH 29.6 pg (25.0-35.0); MCV 87.1 fL (80.0-100.0); Mean Platelet Volume 8.6; Monocytes # (A) 0.4 k/uL (0-1.0); Monocytes % (A) 9 %; Neutrophils # (A) 3.7 k/uL (1.3-7.7); Neutrophils % (A) 74 %; Platelet Count 186 k/uL (150-450); RBC 5.27 m/uL (4.30-5.90); RDW 12.6 % (11.5-15.5)
[2022-12-06 12:26] LABS: ALT 25 U/L (4-49); AST 35 U/L (17-59); African American GFR (CKD) >90 (>60 ml/min/1.73 sqM); Albumin 4.2 g/dL (3.5-5.0); Alkaline Phosphatase 67 U/L (38-126); Anion Gap 7 mmol/L; Blood Urea Nitrogen 17 mg/dL (9-20); Calcium 8.8 mg/dL (8.4-10.2); Carbon Dioxide 27 mmol/L (22-30); Chloride 104 mmol/L (98-107); Glucose 94 mg/dL (74-99); Non-African American GFR(CKD) 86 (>60 ml/min/1.73 sqM); Potassium 4.4 mmol/L (3.5-5.1); Sodium 138 mmol/L (137-145); Total Bilirubin 1.1 mg/dL (0.2-1.3); Total Protein 6.8 g/dL (6.3-8.2)
[2022-12-06 12:33] LABS: Partial Thromboplastin Time 24.6 sec (22.0-30.0); Prothrombin Time 10.4 sec (9.0-12.0)
--- NOTE | 2022-12-06 12:45 | ED ---
General Adult HPI - General Chief complaint: Neuro Symptoms/Deficit Stated complaint: numbness Time Seen by Provider: 12/06/22 11:14 Source: patient Mode of arrival: ambulatory Limitations: no limitations - History of Present Illness Initial comments: 37-year-old male with a past medical history significant for GERD presents to the ED with a chief complaints of numbness. Patient states this morning started to feel numbness "all over". States that this lasted for approximately 45 minutes and is now resolved. Patient was previously here on 11/20/22 for an episode of left-sided facial numbness. At this time, had a brain CT was unremarkable. Had follow-up with his PCP to scheduled a follow-up MRI next week. At this time, patient only notes headache and chest pain which is consistent with his history of GERD and is unchanged from his history of GERD symptoms. Also notes a history of headaches and states that this is unchanged from his history of headaches. No nausea, vomiting. Denies changes in bowel or bladder habits. Denies numbness or weakness. No other complaints. - Related Data Home Medications Medication Instructions Recorded Confirmed Pantoprazole Sodium [Protonix] 40 mg PO DAILY 02/21/22 11/20/22 Ibuprofen [Motrin Ib] 400 - 800 mg PO Q8H PRN 08/09/22 11/20/22 Allergies Allergy/AdvReac Type Severity Reaction Status Date / Time amoxicillin Allergy Rash/Hives Verified 12/06/22 11:08 diphenhydramine HCl Allergy Tongue Verified 12/06/22 11:08 [From Benadryl] Swells Penicillins Allergy Rash/Hives Verified 12/06/22 11:08 Review of Systems ROS Statement: Those systems with pertinent positive or pertinent negative responses have been documented in the HPI. ROS Other: All systems not noted in ROS Statement are negative. Past Medical History Past Medical History: Asthma, GERD/Reflux, Musculoskeletal Disorder Additional Past Medical History / Comment(s): cellulitis, Covid 06/2021, 01/2022, cervical disc disease History of Any Multi-Drug Resistant Organisms: None Reported Past Surgical History: Appendectomy Additional Past Surgical History / Comment(s): vericose vein stripping Past Psychological History: No Psychological Hx Reported Smoking Status: Never smoker Past Alcohol Use History: None Reported Past Drug Use History: None Reported - Past Family History Family Family Medical History: Coronary Artery Disease (CAD) General Exam Limitations: no limitations General appearance: alert, in no apparent distress Head exam: Present: atraumatic, normocephalic Eye exam: Present: normal appearance, PERRL, EOMI ENT exam: Present: mucous membranes moist Neck exam: Present: normal inspection Respiratory exam: Present: normal lung sounds bilaterally Cardiovascular Exam: Present: regular rate, normal rhythm GI/Abdominal exam: Present: soft (No Tenderness to palpation. No rebound guarding or rigidity.) Extremities exam: Present: other (Strength and sensation of bilateral upper and lower extremities equal and intact.) Neurological exam: Present: alert, oriented X3, CN II-XII intact (NIH stroke scale 0) Skin exam: Present: warm, dry Course Vital Signs 12/06/22 12/06/22 11:05 13:29 Temperature 98.7 F Pulse Rate 77 78 Respiratory 18 18 Rate Blood Pressure 144/87 122/87 O2 Sat by Pulse 97 100 Oximetry Medical Decision Making - Medical Decision Making Was pt. sent in by a medical professional or institution (, PA, THEATRICAL PERFORMER, urgent care, hospital, or jail...) When possible be specific @ -No Did you speak to anyone other than the patient for history (EMS, parent, family, police, friend...)? What history was obtained from this source @ -No Did you review nursing and triage notes (agree or disagree)? Why? @ -I reviewed and agree with nursing and triage notes Were old charts reviewed (outside hosp., previous admission, EMS record, old EKG, old radiological studies, urgent care reports/EKG's, jail records)? Report findings @ -No old charts were reviewed Differential Diagnosis (chest pain, altered mental status, abdominal pain women, abdominal pain men, vaginal bleeding, weakness, fever, dyspnea, syncope, headache, dizziness, GI bleed, back pain, seizure, CVA, palpatations, mental health, musculoskeletal)? @ -Differential Altered Mental Status: Hypoglycemia, DKA, hypercapnia, ETOH, overdose, CO poisoning, trauma, myxedema coma, HTN encephalopathy, infection, encephalitis, psychosis, intercranial hemorrhage, hepatic encephalopathy, meningitis, CVA, this is not meant to be an all-inclusive list EKG interpreted by me (3pts min.). @ -As above X-rays interpreted by me (1pt min.). @ -None done CT interpreted by me (1pt min.). @ -CT brain shows no evidence of acute process. U/S interpreted by me (1pt. min.). @ -None done What testing was considered but not performed or refused? (CT, X-rays, U/S, labs)? Why? @ -None What meds were considered but not given or refused? Why? @ -None Did you discuss the management of the patient with other professionals (professionals i.e. , PA, THEATRICAL PERFORMER, lab, RT, psych nurse, healthcare social worker, cost reduction engineer, teacher, information technology officer, high risk case manager)? Give summary @ -No Was smoking cessation discussed for >3mins.? @ -No Was critical care preformed (if so, how long)? @ -No Were there social determinants of health that impacted care today? How? (Homelessness, low income, unemployed, alcoholism, drug addiction, transportation, low edu. Level, literacy, decrease access to med. care, half-way, rehab)? @ -No Was there de-escalation of care discussed even if they declined (Discuss DNR or withdrawal of care, Hospice)? DNR status @ -No What co-morbidities impacted this encounter? (DM, HTN, Smoking, COPD, CAD, Cancer, CVA, ARF, Chemo, Hep., AIDS, mental health diagnosis, sleep apnea, morbid obesity)? @ -None Was patient admitted / discharged? Hospital course, mention meds given and route, prescriptions, significant lab abnormalities, going to OR and other pertinent info. @ -Discharge. Laboratory studies unremarkable. CT of the brain shows no evidence for acute process. Patient had improvement of his headache and pain with Toradol. Patient discharged home in stable condition. Advised to follow with PCP for MRI as scheduled. Discussed return precautions with patient who verbalizes agreement. Undiagnosed new problem with uncertain prognosis? @ -No Drug Therapy requiring intensive monitoring for toxicity (Heparin, Nitro, Insulin, Cardizem)? @ -No Were any procedures done? @ -No Diagnosis/symptom? @ -Numbness Acute, or Chronic, or Acute on Chronic? @ -Acute Uncomplicated (without systemic symptoms) or Complicated (systemic symptoms)? @ -Uncomplicated Side effects of treatment? @ -No Exacerbation, Progression, or Severe Exacerbation? @ -No Poses a threat to life or bodily function? How? (Chest pain, [place], [place], pneumonia, PE, COPD, DKA, ARF, appy, cholecystitis, CVA, Diverticulitis, Homicidal, Suicidal, threat to staff... and all critical care pts) @ -No - Lab Data Result diagrams: 12/06/22 11:13 12/06/22 12:00 Lab Results 12/06/22 12/06/22 12/06/22 Range/Units 11:13 12:00 12:00 WBC 5.0 (3.8-10.6) k/uL RBC 5.27 (4.30-5.90) m/uL Hgb 15.6 (13.0-17.5) gm/dL Hct 45.9 (39.0-53.0) % MCV 87.1 (80.0-100.0) fL MCH 29.6 (25.0-35.0) pg MCHC 34.0 (31.0-37.0) g/dL RDW 12.6 (11.5-15.5) % Plt Count 186 (150-450) k/uL MPV 8.6 Neutrophils % 74 % Lymphocytes % 13 % Monocytes % 9 % Eosinophils % 2 % Basophils % 1 % Neutrophils # 3.7 (1.3-7.7) k/uL Lymphocytes # 0.6 L (1.0-4.8) k/uL Monocytes # 0.4 (0-1.0) k/uL Eosinophils # 0.1 (0-0.7) k/uL Basophils # 0.0 (0-0.2) k/uL PT 10.4 (9.0-12.0) sec INR 1.0 (<1.2) APTT 24.6 (22.0-30.0) sec Sodium 138 (137-145) mmol/L Potassium 4.4 (3.5-5.1) mmol/L Chloride 104 (98-107) mmol/L Carbon Dioxide 27 (22-30) mmol/L Anion Gap 7 mmol/L BUN 17 (9-20) mg/dL Creatinine 1.09 (0.66-1.25) mg/dL Est GFR (CKD-EPI)AfAm >90 (>60 ml/min/1.73 sqM) Est GFR (CKD-EPI)NonAf 86 (>60 ml/min/1.73 sqM) Glucose 94 (74-99) mg/dL Calcium 8.8 (8.4-10.2) mg/dL Total Bilirubin 1.1 (0.2-1.3) mg/dL AST 35 (17-59) U/L ALT 25 (4-49) U/L Alkaline Phosphatase 67 (38-126) U/L Troponin I (0.000-0.034) ng/mL Total Protein 6.8 (6.3-8.2) g/dL Albumin 4.2 (3.5-5.0) g/dL Urine Color Urine Appearance (Clear) Urine pH (5.0-8.0) Ur Specific Cheriton (1.001-1.035) Urine Protein (Negative) Urine Glucose (UA) (Negative) Urine Ketones (Negative) Urine Blood (Negative) Urine Nitrite (Negative) Urine Bilirubin (Negative) Urine Urobilinogen (<2.0) mg/dL Ur Leukocyte Esterase (Negative) 12/06/22 12/06/22 Range/Units 12:00 12:38 WBC (3.8-10.6) k/uL RBC (4.30-5.90) m/uL Hgb (13.0-17.5) gm/dL Hct (39.0-53.0) % MCV (80.0-100.0) fL MCH (25.0-35.0) pg MCHC (31.0-37.0) g/dL RDW (11.5-15.5) % Plt Count (150-450) k/uL MPV Neutrophils % % Lymphocytes % % Monocytes % % Eosinophils % % Basophils % % Neutrophils # (1.3-7.7) k/uL Lymphocytes # (1.0-4.8) k/uL Monocytes # (0-1.0) k/uL Eosinophils # (0-0.7) k/uL Basophils # (0-0.2) k/uL PT (9.0-12.0) sec INR (<1.2) APTT (22.0-30.0) sec Sodium (137-145) mmol/L Potassium (3.5-5.1) mmol/L Chloride (98-107) mmol/L Carbon Dioxide (22-30) mmol/L Anion Gap mmol/L BUN (9-20) mg/dL Creatinine (0.66-1.25) mg/dL Est GFR (CKD-EPI)AfAm (>60 ml/min/1.73 sqM) Est GFR (CKD-EPI)NonAf (>60 ml/min/1.73 sqM) Glucose (74-99) mg/dL Calcium (8.4-10.2) mg/dL Total Bilirubin (0.2-1.3) mg/dL AST (17-59) U/L ALT (4-49) U/L Alkaline Phosphatase (38-126) U/L Troponin I <0.012 (0.000-0.034) ng/mL Total Protein (6.3-8.2) g/dL Albumin (3.5-5.0) g/dL Urine Color Colorless Urine Appearance Clear (Clear) Urine pH 7.0 (5.0-8.0) Ur Specific [place] 1.004 (1.001-1.035) Urine Protein Negative (Negative) Urine Glucose (UA) Negative (Negative) Urine Ketones Negative (Negative) Urine Blood Negative (Negative) Urine Nitrite Negative (Negative) Urine Bilirubin Negative (Negative) Urine Urobilinogen <2.0 (<2.0) mg/dL Ur Leukocyte Esterase Negative (Negative) - EKG Data EKG Comments: EKG shows a sinus rhythm at [address] or T-wave changes. NC 187, QRS 96, QT/QTc 411/402. Disposition Clinical Impression: Numbness Disposition: HOME SELF-CARE Condition: Good Additional Instructions: Please return to the Emergency Department if symptoms worsen or any other concerns. Is patient prescribed a controlled substance at d/c from ED?: No Referrals: Oli Metcalf DO [Primary Care Provider] - 1-2 days Time of Disposition: 13:38
[2022-12-06 12:51] LABS: Appearance,Urine Clear (Clear); Bilirubin,Urine Negative (Negative); Blood,Urine Negative (Negative); Color,Urine Colorless; Glucose,Urine (UA) Negative (Negative); Ketones,Urine Negative (Negative); Leukocyte Esterase,Urine Negative (Negative); Nitrite,Urine Negative (Negative); Protein,Urine Negative (Negative); Specific Gravity,Urine 1.004 (1.001-1.035); Urobilinogen,Urine <2.0 mg/dL (<2.0)
--- NOTE | 2022-12-06 13:19 | CT ---
EXAMINATION TYPE: CT brain wo con CT DLP: 1202.4 mGycm, Automated exposure control for dose reduction was used. DATE OF EXAM: 12/06/2022 12:54 PM COMPARISON: Prior CT Brain from 11/20/2022, 04/13/2021. CLINICAL INDICATION:Male, 37 years old with history of numbness, Numbness TECHNIQUE: Brain: Multiple axial CT images of the brain were obtained without IV contrast. Coronal and sagittal reformats reviewed. FINDINGS: Brain: Extra-axial spaces: No abnormal extra-axial fluid collections. Ventricular system: Within normal limits Cerebral parenchyma: No acute intraparenchymal hemorrhage or mass effect. The bojorquez-white junction is well differentiated. Cerebellum: Unremarkable. Mass effect: No evidence of midline shift. Intracranial vasculature: unremarkable Soft tissues: Normal. Calvarium/osseous structures: No depressed skull fracture. Paranasal sinuses and mastoid air cells: The mastoid air cells are clear. Minimal mucosal thickening in the inferior right maxillary sinus. Visualized orbits: Orbital contents are intact. IMPRESSION: No acute intracranial process or significant change from prior.
[2022-12-06 13:30] VITALS: PULSE 78
[2022-12-06 14:03] VITALS: BP 119/67
== END 2022-12-06 14:03 | disposition home or self-care (01) ==
LOC: EC 10:43
DX: R20.0 Anesthesia of skin (principal); K21.9 Gastro-esophageal reflux disease without esophagitis; J45.909 Unspecified asthma, uncomplicated; Z79.899 Other long term (current) drug therapy; Z88.0 Allergy status to penicillin; Z88.6 Allergy status to analgesic agent; Z86.16 Personal history of COVID-19; Z88.8 Allergy status to other drugs, medicaments and biological substances; Z90.49 Acquired absence of other specified parts of digestive tract
CPT/HCPCS: 36415; 80053; 84484; 85025; 85610; 85730; 81003; 70450; 99284; 96374; 96361; J1885

== ENCOUNTER → 2023-01-10 | Outpatient (CLI) | payer OTHER ==
--- NOTE | 2023-01-10 09:53 | MR ---
EXAMINATION TYPE: MR brain wo con DATE OF EXAM: 01/10/2023 COMPARISON: NONE HISTORY: Episode of Left arm/face numbness TECHNIQUE: T1-weighted sagittal, T2, FLAIR, and diffusion axial, and T2 coronal coronal views of the brain are submitted. FINDINGS: There is no evidence of acute ischemia. The ventricles, basal cisterns, and sulci overlying the conv exities are consistent with the patient's age. There is no mass effect. Craniocervical junction maintained. Sella turcica has a normal appearance. Single focus of abnormal signal white matter right cerebellum and 2 punctate areas within the breonna to small to characterize may be in the basis of artifact or remote white matter microvascular ischemia. No cerebellopontine angle mass. Changes of chronic sinusitis. IMPRESSION: 1. No acute intracranial process. Couple punctate areas of abnormal signal within the breonna second wit hin the cerebellum may be artifactual rather than representing tiny areas of remote white matter dise ase. Correlate clinically.
== END | disposition home or self-care (01) ==
LOC: RADMRIMAIN 08:34
PROVIDERS: ATTEND Family Medicine
DX: G81.92 Hemiplegia, unspecified affecting left dominant side (principal); R90.82 White matter disease, unspecified
CPT/HCPCS: 70551

== ENCOUNTER 2023-04-05 19:37 | Emergency (ER) | payer OTHER ==
[2023-04-05 19:56] VITALS: TEMP 98.4
--- NOTE | 2023-04-05 20:45 | XR ---
EXAMINATION TYPE: XR chest 2V DATE OF EXAM: 04/05/2023 8:12 PM CLINICAL INDICATION:Male, 37 years old with history of cough; COMPARISON: Chest radiographs from 01/07/2023. TECHNIQUE: XR chest 2V Frontal and lateral views of the chest. FINDINGS: Lungs/Pleura: There is no evidence of pleural effusion, focal consolidation, or pneumothorax. Pulmonary vascularity: Unremarkable. Heart/mediastinum: Cardiomediastinal silhouette is unremarkable. Musculoskeletal: No acute osseous pathology. IMPRESSION: No acute cardiopulmonary disease/process., Stable exam.
[2023-04-05] MEDS ORDERED: KETOROLAC 15 MG/ML 1 ML VIAL IVP STA (21:18)
[2023-04-05 21:20] LABS: Basophils # (A) 0.1 k/uL (0-0.2); Basophils % (A) 1 %; Eosinophils # (A) 0.1 k/uL (0-0.7); Eosinophils % (A) 2 %; HCT 46.3 % (39.0-53.0); HGB 15.2 gm/dL (13.0-17.5); Lymphocytes % (A) 16 %; MCH 29.3 pg (25.0-35.0); MCHC 32.9 g/dL (31.0-37.0); MCV 88.9 fL (80.0-100.0); Mean Platelet Volume 8.2; Monocytes # (A) 0.6 k/uL (0-1.0); Monocytes % (A) 10 %; Neutrophils # (A) 4.3 k/uL (1.3-7.7); Neutrophils % (A) 68 %; Platelet Count 223 k/uL (150-450); RDW 12.5 % (11.5-15.5); WBC 6.2 k/uL (3.8-10.6)
[2023-04-05 21:25] LABS: INR 0.9 (<1.2); Partial Thromboplastin Time 25.3 sec (22.0-30.0); Prothrombin Time 10.4 sec (10.0-12.5)
[2023-04-05 21:28] LABS: ALT 35 U/L (4-49); AST 34 U/L (17-59); African American GFR (CKD) >90 (>60 ml/min/1.73 sqM); Albumin 4.1 g/dL (3.5-5.0); Alkaline Phosphatase 98 U/L (38-126); Anion Gap 10 mmol/L; Blood Urea Nitrogen 29 mg/dL (9-20); Calcium 9.2 mg/dL (8.4-10.2); Carbon Dioxide 27 mmol/L (22-30); Chloride 102 mmol/L (98-107); Glucose 82 mg/dL (74-99); Non-African American GFR(CKD) 88 (>60 ml/min/1.73 sqM); Potassium 4.1 mmol/L (3.5-5.1); Sodium 139 mmol/L (137-145); Total Bilirubin 0.8 mg/dL (0.2-1.3); Total Protein 6.6 g/dL (6.3-8.2)
--- NOTE | 2023-04-05 22:04 | ED ---
Chest Pain HPI - General Chief Complaint: Chest Pain Stated Complaint: Chest pain Time Seen by Provider: 04/05/23 20:32 Source: patient Mode of arrival: ambulatory Limitations: no limitations - History of Present Illness Initial Comments: 29-year-old male presents with complaint of chest pain. Pain started a few hours ago while the patient was at work. States that pain is worse with range of motion of the arm and is reproducible upon palpation. It is located over to the left side of the sternum. Patient states he has history of previous muscle tears to this area pain feels somewhat similar. He also admits to body aches, headache, cough, and congestion. It started no shortness of breath. No palpitations or weakness. No numbness or tingling. No fevers. No leg swelling. No history of DVT. No hemoptysis. - Related Data Home Medications Medication Instructions Recorded Confirmed Ibuprofen [Motrin Ib] 600 mg PO DAILY 08/09/22 01/07/23 Albuterol Sulfate [Ventolin HFA] 2 puff INHALATION RT-QID PRN 01/07/23 01/07/23 Aspirin 81 mg PO DAILY 01/07/23 01/07/23 Allergies Allergy/AdvReac Type Severity Reaction Status Date / Time amoxicillin Allergy Rash/Hives Verified 04/05/23 19:55 diphenhydramine HCl Allergy Tongue Verified 04/05/23 19:55 [From Benadryl] Swells Penicillins Allergy Rash/Hives Verified 04/05/23 19:55 Review of Systems ROS Statement: Those systems with pertinent positive or pertinent negative responses have been documented in the HPI. ROS Other: All systems not noted in ROS Statement are negative. Past Medical History Past Medical History: Asthma, GERD/Reflux, Musculoskeletal Disorder Additional Past Medical History / Comment(s): cellulitis, Covid 06/2021, 01/2022, cervical disc disease History of Any Multi-Drug Resistant Organisms: None Reported Past Surgical History: Appendectomy Additional Past Surgical History / Comment(s): vericose vein stripping Past Psychological History: No Psychological Hx Reported Smoking Status: Never smoker Past Alcohol Use History: None Reported Past Drug Use History: Marijuana - Past Family History Family Family Medical History: Coronary Artery Disease (CAD) General Exam Limitations: no limitations General appearance: alert, in no apparent distress Head exam: Present: atraumatic, normocephalic Eye exam: Present: normal appearance Neck exam: Present: normal inspection Respiratory exam: Present: normal lung sounds bilaterally, chest wall tenderness. Absent: respiratory distress, wheezes, rales, rhonchi, stridor Cardiovascular Exam: Present: regular rate, normal rhythm, normal heart sounds. Absent: systolic murmur, diastolic murmur, rubs, gallop, clicks Extremities exam: Absent: pedal edema Neurological exam: Present: alert, oriented X3 Psychiatric exam: Present: normal affect, normal mood Skin exam: Present: warm, dry Course Vital Signs 04/05/23 04/05/23 04/05/23 19:54 21:43 22:13 Temperature 98.4 F Pulse Rate 93 80 74 Respiratory 20 20 18 Rate Blood Pressure 161/99 132/89 130/83 O2 Sat by Pulse 98 98 100 Oximetry Chest Pain MDM - [facility] Sinus rhythm ventricular rate 81. DC interval 12. QRS 93. T3 66. QTc 403 Was pt. sent in by a medical professional or institution (, PA, PROP AND EFFECTS DESIGNER, urgent care, hospital, or jail...) When possible be specific @ -No Did you speak to anyone other than the patient for history (EMS, parent, family, police, friend...)? What history was obtained from this source @ -No Did you review nursing and triage notes (agree or disagree)? Why? @ -I reviewed and agree with nursing and triage notes Were old charts reviewed (outside hosp., previous admission, EMS record, old EKG, old radiological studies, urgent care reports/EKG's, jail records)? Report findings @ -No old charts were reviewed Differential Diagnosis (chest pain, altered mental status, abdominal pain women, abdominal pain men, vaginal bleeding, weakness, fever, dyspnea, syncope, headache, dizziness, GI bleed, back pain, seizure, CVA, palpatations, mental health, musculoskeletal)? @ -[facility] Differential Chest Pain: Stable Angina, Unstable Angina, STEMI, NSTEMI Aortic Dissection, Pneumothorax, Musculoskeletal, Esophageal Spasm GERD, Cholecystitis, Pancreatitis, Zoster This is not meant to be an all-inclusive list. EKG interpreted by me (3pts min.). @ -As above X-rays interpreted by me (1pt min.). @ -Chest X-ray shows no acute process CT interpreted by me (1pt min.). @ -None done U/S interpreted by me (1pt. min.). @ -None done What testing was considered but not performed or refused? (CT, X-rays, U/S, labs)? Why? @ -None What meds were considered but not given or refused? Why? @ -None Did you discuss the management of the patient with other professionals (professionals i.e. Dr., PA, PROP AND EFFECTS DESIGNER, lab, RT, psych nurse, criminal justice social worker, trench pipe layer, teacher, child support case officer, case picker)? Give summary @ -No Was smoking cessation discussed for >3mins.? @ -No Was critical care preformed (if so, how long)? @ -No Were there social determinants of health that impacted care today? How? (Homelessness, low income, unemployed, alcoholism, drug addiction, transportation, low edu. Level, literacy, decrease access to med. care, custodial, rehab)? @ -No Was there de-escalation of care discussed even if they declined (Discuss DNR or withdrawal of care, Hospice)? DNR status @ -No What co-morbidities impacted this encounter? (DM, HTN, Smoking, COPD, CAD, Cancer, CVA, ARF, Chemo, Hep., AIDS, mental health diagnosis, sleep apnea, morbid obesity)? @ -None Was patient admitted / discharged? Hospital course, mention meds given and route, prescriptions, significant lab abnormalities, going to OR and other pertinent info. @ -37-year-old male presenting with chief complaint of chest pain. Patient has history of muscle tears to the left side of the chest, over the affected area today. Worse with range of motion of the arm. Heart and lungs are clear to auscultation and pain is reproducible on exam. BUN 29, likely due to hydration status. Remainder of lab work is grossly unremarkable. Chest x-ray shows no acute process. EKG shows sinus rhythm. Negative PERC criteria. On reassessment after receiving Toradol patient reports that the pain is improving. He is educated on today's findings and supportive management of musculoskeletal chest pain. Discharged home. Follow-up with PCP. Report back to ER with any new or worsening symptoms. Discussed return parameters and answered all questions. Patient conveyed verbal understanding and agreed to the plan. I discussed this case in detail with my attending Dr. Tsang Undiagnosed new problem with uncertain prognosis? @ -No Drug Therapy requiring intensive monitoring for toxicity (Heparin, Nitro, Insulin, Cardizem)? @ -No Were any procedures done? @ -No Diagnosis/symptom? @ -Chest wall pain Acute, or Chronic, or Acute on Chronic? @ -acute Uncomplicated (without systemic symptoms) or Complicated (systemic symptoms)? @ -Uncomplicated Side effects of treatment? @ -No Exacerbation, Progression, or Severe Exacerbation? @ -No Poses a threat to life or bodily function? How? (Chest pain, [place], [place], pneumonia, PE, COPD, DKA, ARF, appy, cholecystitis, CVA, Diverticulitis, Homicidal, Suicidal, threat to staff... and all critical care pts) @ -Low likelihood Disposition Clinical Impression: Chest wall pain Disposition: HOME SELF-CARE Condition: Good Instructions (If sedation given, give patient instructions): Chest Pain (ED), Chest Wall Pain (ED) Additional Instructions: Follow-up with PCP. Report back to ER with any new or worsening symptoms. Alternate Motrin and Tylenol as needed for pain control. Is patient prescribed a controlled substance at d/c from ED?: No Referrals: Oli Metcalf DO [Primary Care Provider] - 1-2 days Time of Disposition: 22:04
[2023-04-05 22:36] VITALS: BP 130/83; PULSE 74; RESP 18
== END 2023-04-05 22:14 | disposition home or self-care (01) ==
LOC: EC 19:37
DX: R07.89 Other chest pain (principal); J45.909 Unspecified asthma, uncomplicated; F12.90 Cannabis use, unspecified, uncomplicated; Z88.0 Allergy status to penicillin; Z88.8 Allergy status to other drugs, medicaments and biological substances; Z79.82 Long term (current) use of aspirin; Z20.822 Contact with and (suspected) exposure to COVID-19
CPT/HCPCS: 36415; 93005; 80053; 84484; 85025; 85610; 85730; 87636; 71046; 99285; 96374; J1885

== ENCOUNTER 2023-05-13 21:56 | Emergency (ER) | payer OTHER ==
[2023-05-13 22:47] VITALS: TEMP 98.4
[2023-05-13] MEDS ORDERED: PANTOPRAZOLE 40 MG TABLET PO STA (23:17)
--- NOTE | 2023-05-13 23:24 | ED ---
General Adult HPI - General Chief complaint: Nausea/Vomiting/Diarrhea Stated complaint: Nausea,Sweating Time Seen by Provider: 05/13/23 22:36 Source: patient, RN notes reviewed Mode of arrival: ambulatory Limitations: no limitations - History of Present Illness Initial comments: 37-year-old male presents to the emergency department for evaluation of epi gastric discomfort with nausea and reflux. Patient reports that this has been going on for around 5 days. Patient reports that he usually takes Protonix but 5 days ago his dog ate his pills and he currently does not have any. He states that his reflux has been worse since then. He states that the pain is typical for his reflux. Patient also is admitting to headache which stems from his neck and back pain. The pain is the same as his typical headaches which he gets regularly and follows with neurology for. Patient reports that this is typical for him and he usually takes Tylenol. He denies any new symptoms. He denies recent fever, chills, chest pain, shortness of breath. - Related Data Home Medications Medication Instructions Recorded Confirmed Ibuprofen [Motrin Ib] 600 mg PO DAILY 08/09/22 01/07/23 Albuterol Sulfate [Ventolin HFA] 2 puff INHALATION RT-QID PRN 01/07/23 01/07/23 Aspirin 81 mg PO DAILY 01/07/23 01/07/23 Previous Rx's Medication Instructions Recorded Pantoprazole Sodium [Protonix] 40 mg PO DAILY #30 tab 05/13/23 Allergies Allergy/AdvReac Type Severity Reaction Status Date / Time amoxicillin Allergy Rash/Hives Verified 05/13/23 22:31 diphenhydramine HCl Allergy Tongue Verified 05/13/23 22:31 [From Benadryl] Swells Penicillins Allergy Rash/Hives Verified 05/13/23 22:31 Review of Systems ROS Statement: Those systems with pertinent positive or pertinent negative responses have been documented in the HPI. ROS Other: All systems not noted in ROS Statement are negative. Past Medical History Past Medical History: Asthma, GERD/Reflux, Musculoskeletal Disorder Additional Past Medical History / Comment(s): cellulitis, Covid 06/2021, 01/2022, cervical disc disease History of Any Multi-Drug Resistant Organisms: None Reported Past Surgical History: Appendectomy Additional Past Surgical History / Comment(s): vericose vein stripping, EGD Past Psychological History: Anxiety, Depression Smoking Status: Former smoker Past Alcohol Use History: None Reported Past Drug Use History: None Reported - Past Family History Family Family Medical History: Coronary Artery Disease (CAD) General Exam Limitations: no limitations General appearance: alert, in no apparent distress Head exam: Present: atraumatic, normocephalic, normal inspection Eye exam: Present: normal appearance, PERRL, EOMI. Absent: scleral icterus, conjunctival injection, periorbital swelling ENT exam: Present: normal exam, mucous membranes moist Neck exam: Present: normal inspection, full ROM. Absent: tenderness, meningismus, lymphadenopathy Respiratory exam: Present: normal lung sounds bilaterally. Absent: respiratory distress, wheezes, rales, rhonchi, stridor Cardiovascular Exam: Present: regular rate, normal rhythm, normal heart sounds. Absent: systolic murmur, diastolic murmur, rubs, gallop, clicks GI/Abdominal exam: Present: soft, normal bowel sounds. Absent: distended, tenderness, guarding, rebound, rigid Back exam: Present: normal inspection Neurological exam: Present: alert, oriented X3, CN II-XII intact, normal gait Psychiatric exam: Present: normal affect, normal mood Skin exam: Present: warm, dry, intact, normal color. Absent: rash Course Vital Signs 05/13/23 05/13/23 22:26 23:31 Temperature 98.4 F Pulse Rate 83 70 Respiratory 20 18 Rate Blood Pressure 144/82 137/90 O2 Sat by Pulse 98 97 Oximetry Medical Decision Making - Medical Decision Making Was pt. sent in by a medical professional or institution (, PA, FLATWORK WASHER, urgent care, hospital, or [place] [facility]...) When possible be specific @ -No Did you speak to anyone other than the patient for history (EMS, parent, family, police, friend...)? What history was obtained from this source @ -No Did you review nursing and triage notes (agree or disagree)? Why? @ -Disagree with the triage discharge. Patient does report having a headache but it is typical in severity to his usual headaches. No diaphoresis. Were old charts reviewed (outside hosp., previous admission, EMS record, old EKG, old radiological studies, urgent care reports/EKG's, [place] [facility] records)? Report findings @ -No old charts were reviewed Differential Diagnosis (chest pain, altered mental status, abdominal pain women, abdominal pain men, vaginal bleeding, weakness, fever, dyspnea, syncope, headache, dizziness, GI bleed, back pain, seizure, CVA, palpatations, mental health, musculoskeletal)? @ -Differential Headache: Migraine, tension, cluster, carbon monoxide, central venous thrombosis, pension karma temporal arteritis, acute closure glaucoma, intercranial hemorrhage, mastoiditis, sinusitis, head injury, this is not meant to be an all-inclusive list. EKG interpreted by me (3pts min.). @ -None X-rays interpreted by me (1pt min.). @ -None done CT interpreted by me (1pt min.). @ -None done U/S interpreted by me (1pt. min.). @ -None done What testing was considered but not performed or refused? (CT, X-rays, U/S, labs)? Why? @ -None What meds were considered but not given or refused? Why? @ -None Did you discuss the management of the patient with other professionals (professionals i.e. , PA, FLATWORK WASHER, lab, RT, psych nurse, dialysis social worker, meeting facilitator, teacher, customs and border protection officer, case maker)? Give summary @ -No Was smoking cessation discussed for >3mins.? @ -No Was critical care preformed (if so, how long)? @ -No Were there social determinants of health that impacted care today? How? (Homelessness, low income, unemployed, alcoholism, drug addiction, transportat ion, low edu. Level, literacy, decrease access to med. care, [facility], rehab)? @ -No Was there de-escalation of care discussed even if they declined (Discuss DNR or withdrawal of care, Hospice)? DNR status @ -No What co-morbidities impacted this encounter? (DM, HTN, Smoking, COPD, CAD, Cancer, CVA, ARF, Chemo, Hep., AIDS, mental health diagnosis, sleep apnea, morbid obesity)? @ -None Was patient admitted / discharged? Hospital course, mention meds given and route, prescriptions, significant lab abnormalities, going to OR and other pertinent info. @ -Discharge. Patient presented to the emergency department for evaluation of epigastric abdominal discomfort after running out of his Protonix. He states that this pain is the same as his acid reflux for which he takes the medication. He has been out of the medication for 5 days as his dog ate it. Patient also reports headache which is the same as it usually is. He denies fever, chills, chest pain, shortness of breath. Patient provided a dose for Protonix in the emergency department and a refill for his prescription was sent. He does report having an an appointment with his PCP in 2 days. Patient will be discharged home. He is understanding agreeable with discharge plan. Patient stable at time of discharge. Case discussed with Dr. Tirado. Undiagnosed new problem with uncertain prognosis? @ -No Drug Therapy requiring intensive monitoring for toxicity (Heparin, Nitro, Insulin, Cardizem)? @ -No Were any procedures done? @ -No Diagnosis/symptom? @ -GERD, headache Acute, or Chronic, or Acute on Chronic? @ -Chronic Uncomplicated (without systemic symptoms) or Complicated (systemic symptoms)? @ -Uncomplicated Side effects of treatment? @ -No Exacerbation, Progression, or Severe Exacerbation? @ -No Poses a threat to life or bodily function? How? (Chest pain, [place], [place], pneumonia, PE, COPD, DKA, ARF, appy, cholecystitis, CVA, Diverticulitis, Homicidal, Suicidal, threat to staff... and all critical care pts) @ -No Disposition Clinical Impression: GERD (gastroesophageal reflux disease), Headache Disposition: HOME SELF-CARE Condition: Stable Instructions (If sedation given, give patient instructions): GERD (Gastroesophageal Reflux Disease) (ED) Additional Instructions: Please follow up with your primary care provider as scheduled. Please return to the emergency department for new or worsening symptoms. Prescriptions: Pantoprazole Sodium [Protonix] 40 mg PO DAILY #30 tab Is patient prescribed a controlled substance at d/c from ED?: No Referrals: Oli Metcalf DO [Primary Care Provider] - 1-2 days
[2023-05-13 23:39] VITALS: BP 137/90; PULSE 70; RESP 18
== END 2023-05-13 23:31 | disposition home or self-care (01) ==
LOC: EC 21:56
DX: K21.9 Gastro-esophageal reflux disease without esophagitis (principal); R51.9 Headache, unspecified; J45.909 Unspecified asthma, uncomplicated; Z79.899 Other long term (current) drug therapy; Z88.0 Allergy status to penicillin; Z88.8 Allergy status to other drugs, medicaments and biological substances; Z86.16 Personal history of COVID-19; Z87.891 Personal history of nicotine dependence
CPT/HCPCS: 99283

== ENCOUNTER 2023-06-03 00:37 | Emergency (ER) | payer OTHER ==
[2023-06-03 00:59] VITALS: TEMP 98
[2023-06-03 01:32] LABS: Basophils % (A) 1 %; Eosinophils # (A) 0.1 k/uL (0-0.7); Eosinophils % (A) 2 %; HGB 16.7 gm/dL (13.0-17.5); Lymphocytes # (A) 1.1 k/uL (1.0-4.8); Lymphocytes % (A) 19 %; MCH 28.9 pg (25.0-35.0); MCHC 32.8 g/dL (31.0-37.0); Mean Platelet Volume 8.3; Monocytes # (A) 0.5 k/uL (0-1.0); Monocytes % (A) 8 %; Neutrophils # (A) 3.9 k/uL (1.3-7.7); Neutrophils % (A) 69 %; Platelet Count 224 k/uL (150-450); RDW 12.5 % (11.5-15.5); WBC 5.6 k/uL (3.8-10.6)
--- NOTE | 2023-06-03 01:36 | ED ---
General Adult HPI - General Chief complaint: Chest Pain Stated complaint: Chest Pain Time Seen by Provider: 06/03/23 01:15 Source: patient, RN notes reviewed, old records reviewed Mode of arrival: ambulatory Limitations: no limitations - History of Present Illness Initial comments: 38-year-old male presenting with chest discomfort. History of costochondritis. Patient states he has had outpatient cardiac testing and this has been unremarkable. He states the pain is similar to previous episodes of costochondritis. He denies cough, denies dyspnea, denies diaphoresis or vomiting. No lower extremity pain or swelling - Related Data Home Medications Medication Instructions Recorded Confirmed Ibuprofen [Motrin Ib] 600 mg PO DAILY 08/09/22 01/07/23 Albuterol Sulfate [Ventolin HFA] 2 puff INHALATION RT-QID PRN 01/07/23 01/07/23 Aspirin 81 mg PO DAILY 01/07/23 01/07/23 Previous Rx's Medication Instructions Recorded Pantoprazole Sodium [Protonix] 40 mg PO DAILY #30 tab 05/13/23 Allergies Allergy/AdvReac Type Severity Reaction Status Date / Time amoxicillin Allergy Rash/Hives Verified 06/03/23 00:46 diphenhydramine HCl Allergy Tongue Verified 06/03/23 00:46 [From Benadryl] Swells Penicillins Allergy Rash/Hives Verified 06/03/23 00:46 Review of Systems ROS Statement: Those systems with pertinent positive or pertinent negative responses have been documented in the HPI. ROS Other: All systems not noted in ROS Statement are negative. Past Medical History Past Medical History: Asthma, GERD/Reflux, Musculoskeletal Disorder Additional Past Medical History / Comment(s): cellulitis, Covid 06/2021, 01/2022, cervical disc disease History of Any Multi-Drug Resistant Organisms: None Reported Past Surgical History: Appendectomy Additional Past Surgical History / Comment(s): vericose vein stripping, EGD Past Psychological History: Anxiety, Depression Smoking Status: Former smoker Past Alcohol Use History: None Reported Past Drug Use History: None Reported - Past Family History Family Family Medical History: Coronary Artery Disease (CAD) General Exam Limitations: no limitations General appearance: alert, in no apparent distress Head exam: Present: atraumatic, normocephalic Eye exam: Present: normal appearance, PERRL ENT exam: Present: normal exam Neck exam: Present: normal inspection. Absent: tenderness, meningismus Respiratory exam: Present: normal lung sounds bilaterally, chest wall tenderness. Absent: respiratory distress, wheezes Cardiovascular Exam: Present: regular rate, normal rhythm GI/Abdominal exam: Present: soft. Absent: distended, tenderness, guarding Extremities exam: Present: normal inspection, normal capillary refill Neurological exam: Present: alert, oriented X3, CN II-XII intact Psychiatric exam: Present: normal affect, normal mood Skin exam: Present: warm, dry, intact Course Vital Signs 06/03/23 06/03/23 00:41 02:43 Temperature 98.0 F 98.0 F Pulse Rate 88 80 Respiratory 22 20 Rate Blood Pressure 133/86 130/84 O2 Sat by Pulse 100 100 Oximetry Medical Decision Making - Medical Decision Making Was pt. sent in by a medical professional or institution (, PA, PARKING LOT LABORER, urgent care, hospital, or alf...) When possible be specific @ -No Did you speak to anyone other than the patient for history (EMS, parent, family, police, friend...)? What history was obtained from this source @ -No Did you review nursing and triage notes (agree or disagree)? Why? @ -I reviewed and agree with nursing and triage notes Were old charts reviewed (outside hosp., previous admission, EMS record, old EKG, old radiological studies, urgent care reports/EKG's, alf records)? Report findings @ -No old charts were reviewed Differential Diagnosis (chest pain, altered mental status, abdominal pain women, abdominal pain men, vaginal bleeding, weakness, fever, dyspnea, syncope, headache, dizziness, GI bleed, back pain, seizure, CVA, palpatations, mental hea lth, musculoskeletal)? @ -Differential Chest Pain: Stable Angina, Unstable Angina, STEMI, NSTEMI Aortic Dissection, Pneumothorax, Musculoskeletal, Esophageal Spasm GERD, Cholecystitis, Pancreatitis, Zoster, this is not meant to be an all-inclusive list. EKG interpreted by me (3pts min.). @ -EKG sinus rhythm rate of 79, TX interval 177, QRS duration 96, QTc [address] segment elevation, T wave inversion in lead III similar to prior. X-rays interpreted by me (1pt min.). @ -Chest x-ray negative for acute cardiopulmonary findings CT interpreted by me (1pt min.). @ -None done U/S interpreted by me (1pt. min.). @ -None done What testing was considered but not performed or refused? (CT, X-rays, U/S, labs)? Why? @ -None What meds were considered but not given or refused? Why? @ -None Did you discuss the management of the patient with other professionals (professionals i.e. Dr., PA, PARKING LOT LABORER, lab, RT, psych nurse, social scientist, digital production operator, teacher, chief compliance officer, case work aide)? Give summary @ -No Was smoking cessation discussed for >3mins.? @ -No Was critical care preformed (if so, how long)? @ -No Were there social determinants of health that impacted care today? How? (Homelessness, low income, unemployed, alcoholism, drug addiction, transportation, low edu. Level, literacy, decrease access to med. care, shelter, rehab)? @ -No Was there de-escalation of care discussed even if they declined (Discuss DNR or withdrawal of care, Hospice)? DNR status @ -No What co-morbidities impacted this encounter? (DM, HTN, Smoking, COPD, CAD, Cancer, CVA, ARF, Chemo, Hep., AIDS, mental health diagnosis, sleep apnea, morbid obesity)? @ -None Was patient admitted / discharged? Hospital course, mention meds given and route, prescriptions, significant lab abnormalities, going to OR and other per tinent info. @38-year-old male with anterior chest discomfort history of costochondritis. EKG sinus rhythm, chest x-ray is clear, CBC, CMP, troponin all unremarkable. Patient given symptomatic treatment in the emergency department stable for discharge at this time. Undiagnosed new problem with uncertain prognosis? @ -No Drug Therapy requiring intensive monitoring for toxicity (Heparin, Nitro, I nsulin, Cardizem)? @ -No Were any procedures done? @ -No Diagnosis/symptom? @Chest pain Acute, or Chronic, or Acute on Chronic? @ -Acute Uncomplicated (without systemic symptoms) or Complicated (systemic symptoms)? @ -Default Side effects of treatment? @ -No Exacerbation, Progression, or Severe Exacerbation? @ -No Poses a threat to life or bodily function? How? (Chest pain, [place], [place], pneumonia, PE, COPD, DKA, ARF, appy, cholecystitis, CVA, Diverticulitis, Homicidal, Suicidal, threat to staff... and all critical care pts) @ -No - Lab Data Result diagrams: 06/03/23 01:16 06/03/23 01:16 Lab Results 06/03/23 06/03/23 06/03/23 Range/Units 01:16 01:16 01:16 WBC 5.6 (3.8-10.6) k/uL RBC 5.80 (4.30-5.90) m/uL Hgb 16.7 (13.0-17.5) gm/dL Hct 51.0 (39.0-53.0) % MCV 88.0 (80.0-100.0) fL MCH 28.9 (25.0-35.0) pg MCHC 32.8 (31.0-37.0) g/dL RDW 12.5 (11.5-15.5) % Plt Count 224 (150-450) k/uL MPV 8.3 Neutrophils % 69 % Lymphocytes % 19 % Monocytes % 8 % Eosinophils % 2 % Basophils % 1 % Neutrophils # 3.9 (1.3-7.7) k/uL Lymphocytes # 1.1 (1.0-4.8) k/uL Monocytes # 0.5 (0-1.0) k/uL Eosinophils # 0.1 (0-0.7) k/uL Basophils # 0.0 (0-0.2) k/uL PT 11.5 (10.0-12.5) sec INR 1.1 (<1.2) APTT 25.9 (22.0-30.0) sec Sodium 138 (137-145) mmol/L Potassium 4.1 (3.5-5.1) mmol/L Chloride 107 (98-107) mmol/L Carbon Dioxide 25 (22-30) mmol/L Anion Gap 6 mmol/L BUN 18 (9-20) mg/dL Creatinine 1.08 (0.66-1.25) mg/dL Est GFR (CKD-EPI)AfAm >90 (>60 ml/min/1.73 sqM) Est GFR (CKD-EPI)NonAf 86 (>60 ml/min/1.73 sqM) Glucose 96 (74-99) mg/dL Calcium 9.2 (8.4-10.2) mg/dL Magnesium 2.2 (1.6-2.3) mg/dL Total Bilirubin 1.2 (0.2-1.3) mg/dL AST 36 (17-59) U/L ALT 28 (4-49) U/L Alkaline Phosphatase 75 (38-126) U/L Troponin I (0.000-0.034) ng/mL Total Protein 6.9 (6.3-8.2) g/dL Albumin 4.4 (3.5-5.0) g/dL 06/03/23 Range/Units 01:16 WBC (3.8-10.6) k/uL RBC (4.30-5.90) m/uL Hgb (13.0-17.5) gm/dL Hct (39.0-53.0) % MCV (80.0-100.0) fL MCH (25.0-35.0) pg MCHC (31.0-37.0) g/dL RDW (11.5-15.5) % Plt Count (150-450) k/uL MPV Neutrophils % % Lymphocytes % % Monocytes % % Eosinophils % % Basophils % % Neutrophils # (1.3-7.7) k/uL Lymphocytes # (1.0-4.8) k/uL Monocytes # (0-1.0) k/uL Eosinophils # (0-0.7) k/uL Basophils # (0-0.2) k/uL PT (10.0-12.5) sec INR (<1.2) APTT (22.0-30.0) sec Sodium (137-145) mmol/L Potassium (3.5-5.1) mmol/L Chloride (98-107) mmol/L Carbon Dioxide (22-30) mmol/L Anion Gap mmol/L BUN (9-20) mg/dL Creatinine (0.66-1.25) mg/dL Est GFR (CKD-EPI)AfAm (>60 ml/min/1.73 sqM) Est GFR (CKD-EPI)NonAf (>60 ml/min/1.73 sqM) Glucose (74-99) mg/dL Calcium (8.4-10.2) mg/dL Magnesium (1.6-2.3) mg/dL Total Bilirubin (0.2-1.3) mg/dL AST (17-59) U/L ALT (4-49) U/L Alkaline Phosphatase (38-126) U/L Troponin I <0.012 (0.000-0.034) ng/mL Total Protein (6.3-8.2) g/dL Albumin (3.5-5.0) g/dL Disposition Clinical Impression: Chest pain Disposition: HOME SELF-CARE Condition: Good Instructions (If sedation given, give patient instructions): Chest Pain (ED), Costochondritis (ED) Is patient prescribed a controlled substance at d/c from ED?: No Referrals: Oli Metcalf DO [Primary Care Provider] - 1-2 days Time of Disposition: 02:09
--- NOTE | 2023-06-03 01:37 | XR ---
EXAMINATION TYPE: XR chest 2V DATE OF EXAM: 06/03/2023 COMPARISON: Chest x-ray April 05, 2023 HISTORY: Chest pain TECHNIQUE: Frontal and lateral views of the chest are obtained. FINDINGS: There is no focal air space opacity, pleural effusion, or pneumothorax seen. The cardiac silhouette size is stable in within normal limits. The osseous structures are intact. IMPRESSION: No acute process. No significant change from prior.
[2023-06-03 01:48] LABS: INR 1.1 (<1.2); Partial Thromboplastin Time 25.9 sec (22.0-30.0); Prothrombin Time 11.5 sec (10.0-12.5)
[2023-06-03] MEDS: KETOROLAC 15 MG/ML 1 ML VIAL IVP STA (02:15)
[2023-06-03 02:17] LABS: ALT 28 U/L (4-49); AST 36 U/L (17-59); African American GFR (CKD) >90 (>60 ml/min/1.73 sqM); Albumin 4.4 g/dL (3.5-5.0); Alkaline Phosphatase 75 U/L (38-126); Anion Gap 6 mmol/L; Blood Urea Nitrogen 18 mg/dL (9-20); Calcium 9.2 mg/dL (8.4-10.2); Carbon Dioxide 25 mmol/L (22-30); Chloride 107 mmol/L (98-107); Glucose 96 mg/dL (74-99); Magnesium 2.2 mg/dL (1.6-2.3); Non-African American GFR(CKD) 86 (>60 ml/min/1.73 sqM); Potassium 4.1 mmol/L (3.5-5.1); Sodium 138 mmol/L (137-145); Total Bilirubin 1.2 mg/dL (0.2-1.3); Total Protein 6.9 g/dL (6.3-8.2)
[2023-06-03 03:03] VITALS: BP 130/84; PULSE 80; RESP 20
== END 2023-06-03 02:45 | disposition home or self-care (01) ==
LOC: EC 00:37
DX: R07.89 Other chest pain (principal); J45.909 Unspecified asthma, uncomplicated; Z79.899 Other long term (current) drug therapy; Z88.0 Allergy status to penicillin; Z88.8 Allergy status to other drugs, medicaments and biological substances; Z87.891 Personal history of nicotine dependence; Z86.16 Personal history of COVID-19
CPT/HCPCS: 36415; 93005; 80053; 83735; 84484; 85025; 85610; 85730; 71046; 99285; 96374; J1885

== ENCOUNTER 2023-06-13 14:19 | Emergency (ER) | payer OTHER ==
--- NOTE | 2023-06-13 15:05 | ED ---
General Adult HPI - General Chief complaint: Shortness of Breath Stated complaint: SOB Time Seen by Provider: 06/13/23 14:33 Source: patient, RN notes reviewed Mode of arrival: ambulatory Limitations: no limitations - History of Present Illness Initial comments: 38-year-old male presents emergency department chief complaint of left-sided rib and lung pain. Patient states he was diagnosed with influenza on Friday here states symptoms are worsening with movement and pain in his left side of his chest. He continues fevers chills body aches denies any GI symptoms - Related Data Home Medications Medication Instructions Recorded Confirmed Ibuprofen [Motrin Ib] 600 mg PO DAILY 08/09/22 01/07/23 Albuterol Sulfate [Ventolin HFA] 2 puff INHALATION RT-QID PRN 01/07/23 01/07/23 Aspirin 81 mg PO DAILY 01/07/23 01/07/23 Previous Rx's Medication Instructions Recorded Pantoprazole Sodium [Protonix] 40 mg PO DAILY #30 tab 05/13/23 Allergies Allergy/AdvReac Type Severity Reaction Status Date / Time amoxicillin Allergy Rash/Hives Verified 06/10/23 20:06 diphenhydramine HCl Allergy Tongue Verified 06/10/23 20:06 [From Benadryl] Swells Penicillins Allergy Rash/Hives Verified 06/10/23 20:06 Review of Systems ROS Statement: Those systems with pertinent positive or pertinent negative responses have been documented in the HPI. ROS Other: All systems not noted in ROS Statement are negative. Past Medical History Past Medical History: Asthma, GERD/Reflux, Musculoskeletal Disorder Additional Past Medical History / Comment(s): cellulitis, Covid 06/2021, 01/2022, cervical disc disease History of Any Multi-Drug Resistant Organisms: None Reported Past Surgical History: Appendectomy Additional Past Surgical History / Comment(s): vericose vein stripping, EGD Past Psychological History: Anxiety, Depression Smoking Status: Former smoker Past Alcohol Use History: None Reported Past Drug Use History: None Reported - Past Family History Family Family Medical History: Coronary Artery Disease (CAD) General Exam Limitations: no limitations General appearance: alert, in no apparent distress Head exam: Present: atraumatic, normocephalic, normal inspection Eye exam: Present: normal appearance, PERRL, EOMI. Absent: scleral icterus, conjunctival injection, periorbital swelling ENT exam: Present: normal exam, normal oropharynx, mucous membranes moist Neck exam: Present: normal inspection, full ROM. Absent: tenderness, meningismus, lymphadenopathy Respiratory exam: Present: normal lung sounds bilaterally, chest wall tenderness. Absent: respiratory distress, wheezes, rales, rhonchi, stridor Cardiovascular Exam: Present: regular rate, normal rhythm, normal heart sounds. Absent: systolic murmur, diastolic murmur, rubs, gallop, clicks GI/Abdominal exam: Present: soft, normal bowel sounds. Absent: distended, tenderness, guarding, rebound, rigid Course Vital Signs 06/13/23 14:30 Temperature 99.5 F Pulse Rate 84 Respiratory 18 Rate Blood Pressure 138/81 O2 Sat by Pulse 97 Oximetry Medical Decision Making - Medical Decision Making Was pt. sent in by a medical professional or institution (, PA, ASSISTANT SPA DIRECTOR, urgent care, hospital, or skilled nursing...) When possible be specific @ -No Did you speak to anyone other than the patient for history (EMS, parent, family, police, friend...)? What history was obtained from this source @ -No Did you review nursing and triage notes (agree or disagree)? Why? @ -I reviewed and agree with nursing and triage notes Were old charts reviewed (outside hosp., previous admission, EMS record, old EKG, old radiological studies, urgent care reports/EKG's, skilled nursing records)? Report findings @ -Reviewed viral swab and x-ray from previous visit Differential Diagnosis (chest pain, altered mental status, abdominal pain women, abdominal pain men, vaginal bleeding, weakness, fever, dyspnea, syncope, headache, dizziness, GI bleed, back pain, seizure, CVA, palpatations, mental health, musculoskeletal)? @ -COVID 19, RSV, influenza, pneumonia, acute bronchitis, URI, this list is not all inclusive EKG interpreted by me (3pts min.). @ -None X-rays interpreted by me (1pt min.). @ -Chest x-ray shows no acute cardiopulmonary process, no change from prior CT interpreted by me (1pt min.). @ -None done U/S interpreted by me (1pt. min.). @ -None done What testing was considered but not performed or refused? (CT, X-rays, U/S, labs)? Why? @ -None What meds were considered but not given or refused? Why? @ -None Did you discuss the management of the patient with other professionals (professionals i.e. , PA, ASSISTANT SPA DIRECTOR, lab, RT, psych nurse, case management social worker, agri business agent, teacher, fourth officer, human services case manager)? Give summary @ -No Was smoking cessation discussed for >3mins.? @ -No Was critical care preformed (if so, how long)? @ -No Were there social determinants of health that impacted care today? How? (Homelessness, low income, unemployed, alcoholism, drug addiction, transportation, low edu. Level, literacy, decrease access to med. care, penitentiary, rehab)? @ -No Was there de-escalation of care discussed even if they declined (Discuss DNR or withdrawal of care, Hospice)? DNR status @ -No What co-morbidities impacted this encounter? (DM, HTN, Smoking, COPD, CAD, Cancer, CVA, ARF, Chemo, Hep., AIDS, mental health diagnosis, sleep apnea, morbid obesity)? @ -None Was patient admitted / discharged? Hospital course, mention meds given and route, prescriptions, significant lab abnormalities, going to OR and other pertinent info. @ -Discharge patient is influenza A positive patient has pleuritic pain worse with movement he has no other acute findings. Patient will continue anti- inflammatories return breath discussed. Undiagnosed new problem with uncertain prognosis? @ -No Drug Therapy requiring intensive monitoring for toxicity (Heparin, Nitro, Insulin, Cardizem)? @ -No Were any procedures done? @ -No Diagnosis/symptom? @ -Influenza A, chest wall pain Acute, or Chronic, or Acute on Chronic? @ -Acute Uncomplicated (without systemic symptoms) or Complicated (systemic symptoms)? @ -Uncomplicated Side effects of treatment? @ -No Exacerbation, Progression, or Severe Exacerbation? @ -No Poses a threat to life or bodily function? How? (Chest pain, [place], [place], pneumonia, PE, COPD, DKA, ARF, appy, cholecystitis, CVA, Diverticulitis, Homicidal, Suicidal, threat to staff... and all critical care pts) @ -No Disposition Clinical Impression: Influenza A, Chest wall pain Disposition: HOME SELF-CARE Condition: Stable Instructions (If sedation given, give patient instructions): Chest Wall Pain (ED) Additional Instructions: Please return to the Emergency Department if symptoms worsen or any other concerns. Is patient prescribed a controlled substance at d/c from ED?: No Referrals: Oli Metcalf DO [Primary Care Provider] - 1-2 days Time of Disposition: 15:05
--- NOTE | 2023-06-13 15:11 | XR ---
EXAMINATION TYPE: XR chest 2V DATE OF EXAM: 06/13/2023 COMPARISON: 06/10/2023 HISTORY: Chest pain TECHNIQUE: Frontal and lateral views of the chest are obtained. FINDINGS: There is no focal air space opacity. No evidence for pneumothorax. No pleural effusion. The cardiac silhouette size is within normal limits. The osseous structures are grossly intact. IMPRESSION: 1. No acute cardiopulmonary process.
[2023-06-13] MEDS: KETOROLAC 15 MG/ML 1 ML VIAL IM STA (15:18)
[2023-06-13 15:40] VITALS: BP 134/76; PULSE 89; RESP 20; TEMP 98.7
== END 2023-06-13 15:29 | disposition home or self-care (01) ==
LOC: EC 14:19
DX: J10.1 Influenza due to other identified influenza virus with other respiratory manifestations (principal); R07.89 Other chest pain; J45.909 Unspecified asthma, uncomplicated; Z86.59 Personal history of other mental and behavioral disorders; Z79.82 Long term (current) use of aspirin; Z88.0 Allergy status to penicillin; Z88.8 Allergy status to other drugs, medicaments and biological substances; Z87.891 Personal history of nicotine dependence; Z20.822 Contact with and (suspected) exposure to COVID-19
CPT/HCPCS: 71046; 99285; 96372; J1885

== ENCOUNTER 2023-06-30 00:15 | Emergency (ER) | payer OTHER ==
[2023-06-30 00:47] VITALS: TEMP 98
--- NOTE | 2023-06-30 01:13 | ED ---
Chest Pain HPI - General Chief Complaint: Chest Pain Stated Complaint: chest pain SOB face numbness Time Seen by Provider: 06/30/23 01:12 Source: patient, RN notes reviewed, old records reviewed Mode of arrival: ambulatory Limitations: no limitations - History of Present Illness Initial Comments: This is a 38-year-old male with family history of heart disease no medical history himself coming in with a syncopal event. Patient does admit to severely increased amount of stress lately especially unresolved to recent having to travel to a , family family . Patient has no significant chest pain no shortness of breath. Patient has no other illness, no other significant complaints. Patient has no current chest pain here in the ER again was working on a fridge prior to arrival when he had a syncopal event, patient comes in for evaluation regarding syncope patient does suffer from varicose veins with no history of DVT MD Complaint: chest pain, other (Syncopal event) -: hour(s) Onset: during rest, during exertion Pain Location: substernal, left chest Pain Radiation: LUE Severity: moderate Severity scale (1-10): 4 Quality: tightness, heaviness Consistency: constant Improves With: nothing Worsens With: nothing Context: recent illness Anginal Symptoms: sense of impending doom Other Symptoms: palpitations Treatments Prior to Arrival: none - Related Data Home Medications Medication Instructions Recorded Confirmed Ibuprofen [Motrin Ib] 600 mg PO DAILY 08/09/22 01/07/23 Albuterol Sulfate [Ventolin HFA] 2 puff INHALATION RT-QID PRN 01/07/23 01/07/23 Aspirin 81 mg PO DAILY 01/07/23 01/07/23 Previous Rx's Medication Instructions Recorded Pantoprazole Sodium [Protonix] 40 mg PO DAILY #30 tab 05/13/23 Allergies Allergy/AdvReac Type Severity Reaction Status Date / Time amoxicillin Allergy Rash/Hives Verified 06/30/23 00:19 diphenhydramine HCl Allergy Tongue Verified 06/30/23 00:19 [From Benadryl] Swells Penicillins Allergy Rash/Hives Verified 06/30/23 00:19 Review of Systems ROS Statement: Those systems with pertinent positive or pertinent negative responses have been documented in the HPI. ROS Other: All systems not noted in ROS Statement are negative. EKG Findings - EKG Comments: EKG Findings:: EKG is sinus 89 [place] 177 QRS 98 QTc 400 - EKG Results: EKG: interpreted by ERMD Past Medical History Past Medical History: Asthma, GERD/Reflux, Musculoskeletal Disorder Additional Past Medical History / Comment(s): cellulitis, Covid 06/2021, 01/2022, cervical disc disease History of Any Multi-Drug Resistant Organisms: None Reported Past Surgical History: Appendectomy Additional Past Surgical History / Comment(s): vericose vein stripping, EGD Past Psychological History: Anxiety, Depression Smoking Status: Former smoker Past Alcohol Use History: None Reported Past Drug Use History: None Reported - Past Family History Family Family Medical History: Coronary Artery Disease (CAD) General Exam Limitations: no limitations General appearance: alert, in no apparent distress Head exam: Present: atraumatic, normocephalic, normal inspection Eye exam: Present: normal appearance, PERRL, EOMI. Absent: scleral icterus, conjunctival injection, periorbital swelling ENT exam: Present: normal exam, mucous membranes moist Neck exam: Present: normal inspection. Absent: tenderness, meningismus, lymphadenopathy Respiratory exam: Present: normal lung sounds bilaterally. Absent: respiratory distress, wheezes, rales, rhonchi, stridor Cardiovascular Exam: Present: regular rate, normal rhythm, normal heart sounds. Absent: systolic murmur, diastolic murmur, rubs, gallop, clicks GI/Abdominal exam: Present: soft, normal bowel sounds. Absent: distended, tenderness, guarding, rebound, rigid Extremities exam: Present: normal inspection, full ROM, normal capillary refill. Absent: tenderness, pedal edema, joint swelling, calf tenderness Back exam: Present: normal inspection Neurological exam: Present: alert, oriented X3, CN II-XII intact Psychiatric exam: Present: normal affect, normal mood Skin exam: Present: warm, dry, intact, normal color. Absent: rash Course Vital Signs 06/30/23 06/30/23 06/30/23 00:18 02:20 03:00 Temperature 98 F Pulse Rate 96 71 64 Respiratory 18 9 L 18 Rate Blood Pressure 136/98 123/74 123/74 O2 Sat by Pulse 98 99 98 Oximetry - Reevaluation(s) Reevaluation #1: Records reviewed Reevaluation #2: Patient symptoms are improved Reevaluation #3: Patient informed of results questions answered Studies X-rays negative for acute disease Reevaluation #4: Was pt. sent in by a medical professional or institution (, LORENA, UTILITIES AND MAINTENANCE SUPERVISOR, urgent care, hospital, or fpc...) When possible be specific @ -no Did you speak to anyone other than the patient for history (EMS, parent, family, police, friend...)? What history was obtained from this source @ -no Did you review nursing and triage notes (agree or disagree)? Why? @ -agree Are old charts reviewed (outside hosp., previous admission, EMS record, old EKG, old radiological studies, urgent care reports/EKG's, fpc records)? Report findings @ -yes Differential Diagnosis (chest pain, altered mental status, abdominal pain women, abdominal pain men, vaginal bleeding, weakness, fever, dyspnea, syncope, he adache, dizziness, GI bleed, back pain, seizure, CVA, palpatations, mental health, musculoskeletal)? @ -prior EKG interpreted by me (3pts min.). @ -yes X-rays interpreted by me (1pt min.). @ -yes negative for acute disease CT interpreted by me (1pt min.). @ -no U/S interpreted by me (1pt. min.). @ -no What testing was considered but not performed or refused? (CT, X-rays, U/S, labs)? Why? @ -none What meds were considered but not given or refused? Why? @ -none Did you discuss the management of the patient with other professionals (professionals i.e. LORENA Esparza, UTILITIES AND MAINTENANCE SUPERVISOR, lab, RT, psych nurse, social media content manager, internal medicine specialist, teacher, assignment officer, family caseworker)? Give summary @ -no Was smoking cessation discussed for >3mins.? @ -no Was critical care preformed (if so, how long)? @ -no Were there social determinants of health that impacted care today? How? (Homelessness, low income, unemployed, alcoholism, drug addiction, transportation, low edu. Level, literacy, decrease access to med. care, alf, rehab)? @ -none Was there de-escalation of care discussed even if they declined (Discuss DNR or withdrawal of care, Hospice)? DNR status @ -no What co-morbidities impacted this encounter? (DM, HTN, Smoking, COPD, CAD, Cancer, CVA, ARF, Chemo, Hep., AIDS, mental health diagnosis, sleep apnea, morbid obesity)? @ -none Was patient admitted / discharged? Hospital course, mention meds given and route, prescriptions, significant lab abnormalities, going to OR and other pertinent info. @ - 38 male with anterior chest pain positive for influenza. Patient's symptoms are improved here in the ER feels well and can be discharged home Discharged Undiagnosed new problem with uncertain prognosis? @ -no Drug Therapy requiring intensive monitoring for toxicity (Heparin, Nitro, Insulin, Cardizem)? @ -no Were any procedures done? @ -no Diagnosis/symptom? @ -Influenza, Chest Pain Acute, or Chronic, or Acute on Chronic? @ -Acute Uncomplicated (without systemic symptoms) or Complicated (systemic symptoms)? @ -Complicated Side effects of treatment? @ -no Exacerbation, Progression, or Severe Exacerbation? @ -exacerbation Poses a threat to life or bodily function? How? (Chest pain, [place], [place], pneumonia, PE, COPD, DKA, ARF, appy, cholecystitis, CVA, Diverticulitis, Homicidal, Suicidal, threat to staff... and all critical care pts) @ -yes with significant chest pain Reevaluation #5: Differential Chest Pain: Stable Angina, Unstable Angina, STEMI, NSTEMI Aortic Dissection, Pneumothorax, Musculoskeletal, Esophageal Spasm GERD, Cholecystitis, Pancreatitis, Zoster, this is not meant to be an all-inclusive list. Chest Pain MDM - MDM 38 male with anterior chest pain positive for influenza. Patient's symptoms are improved here in the ER feels well and can be discharged home Disposition Clinical Impression: Chest pain, Anterior pleuritic pain, Influenza A, Syncope, Chest wall pain Disposition: HOME SELF-CARE Condition: Good Instructions (If sedation given, give patient instructions): Syncope (ED) Is patient prescribed a controlled substance at d/c from ED?: No Referrals: Oli Metcalf DO [Primary Care Provider] - 1-2 days Time of Disposition: 03:00
[2023-06-30 02:10] LABS: ALT 24 U/L (4-49); AST 28 U/L (17-59); African American GFR (CKD) >90 (>60 ml/min/1.73 sqM); Albumin 4.1 g/dL (3.5-5.0); Alkaline Phosphatase 65 U/L (38-126); Anion Gap 7 mmol/L; Blood Urea Nitrogen 27 mg/dL (9-20); Carbon Dioxide 26 mmol/L (22-30); Chloride 106 mmol/L (98-107); Glucose 105 mg/dL (74-99); Lipase 108 U/L (23-300); Magnesium 2.3 mg/dL (1.6-2.3); Non-African American GFR(CKD) >90 (>60 ml/min/1.73 sqM); Potassium 4.5 mmol/L (3.5-5.1); Sodium 139 mmol/L (137-145); Total Bilirubin 0.9 mg/dL (0.2-1.3); Total Protein 6.3 g/dL (6.3-8.2)
--- NOTE | 2023-06-30 02:14 | XR ---
EXAMINATION TYPE: XR chest 2V DATE OF EXAM: 06/30/2023 COMPARISON: Chest x-ray June 13, 2023 HISTORY: Chest pain. TECHNIQUE: Frontal and lateral views of the chest are obtained. FINDINGS: There is no focal air space opacity, pleural effusion, or pneumothorax seen. The cardiac silhouette size is stable and within normal limits. The osseous structures are intact. IMPRESSION: No acute process. No significant change from prior.
[2023-06-30 02:19] LABS: NT-Pro-B-Type Natriuretic Pept 132 pg/mL
[2023-06-30 02:47] LABS: INR 1.1 (<1.2); Partial Thromboplastin Time 23.6 sec (22.0-30.0); Prothrombin Time 11.9 sec (10.0-12.5)
[2023-06-30 03:19] VITALS: BP 123/74
[2023-06-30 03:50] VITALS: PULSE 64; RESP 18
[2023-06-30 04:17] LABS: Basophils % (A) 1 %; Eosinophils # (A) 0.1 k/uL (0-0.7); Eosinophils % (A) 2 %; HCT 45.4 % (39.0-53.0); HGB 15.4 gm/dL (13.0-17.5); Lymphocytes # (A) 0.8 k/uL (1.0-4.8); Lymphocytes % (A) 13 %; MCH 29.7 pg (25.0-35.0); MCV 87.4 fL (80.0-100.0); Mean Platelet Volume 8.9; Monocytes # (A) 0.6 k/uL (0-1.0); Monocytes % (A) 10 %; Neutrophils # (A) 4.2 k/uL (1.3-7.7); Neutrophils % (A) 72 %; Platelet Count 214 k/uL (150-450); RBC 5.19 m/uL (4.30-5.90); RDW 12.7 % (11.5-15.5); WBC 5.9 k/uL (3.8-10.6)
== END 2023-06-30 03:48 | disposition home or self-care (01) ==
LOC: EC 00:15
DX: J10.1 Influenza due to other identified influenza virus with other respiratory manifestations (principal); R55 Syncope and collapse; Z87.891 Personal history of nicotine dependence; Z88.0 Allergy status to penicillin; Z88.8 Allergy status to other drugs, medicaments and biological substances; Z86.16 Personal history of COVID-19
CPT/HCPCS: 36415; 71046; 80053; 83690; 83735; 83880; 84484; 85025; 85379; 85610; 85730; 93005; 99285

== ENCOUNTER 2023-10-29 15:32 | Emergency (ER) | payer OTHER ==
[2023-10-29 15:43] VITALS: RESP 18
--- NOTE | 2023-10-29 16:29 | ED ---
URI HPI - General Chief Complaint: Upper Respiratory Infection Stated Complaint: chest pain, arm pain, face swelling Time Seen by Provider: 10/29/23 16:28 Source: patient, RN notes reviewed Mode of arrival: ambulatory Limitations: no limitations - History of Present Illness Initial Comments: 38-year-old male with history of asthma presenting with nasal congestion x 3 days with cough and subjective fever. He admits some chest pain with coughing. He also admits some bodyaches but reports he has been moving over the past few days and doing a large amount of heavy lifting which could be contributing to this. Denies shortness of breath, wheezing, difficulty breathing. - Related Data Home Medications Medication Instructions Recorded Confirmed Ibuprofen [Motrin Ib] 600 mg PO DAILY 08/09/22 01/07/23 Albuterol Sulfate [Ventolin HFA] 2 puff INHALATION RT-QID PRN 01/07/23 01/07/23 Aspirin 81 mg PO DAILY 01/07/23 01/07/23 Previous Rx's Medication Instructions Recorded Pantoprazole Sodium [Protonix] 40 mg PO DAILY #30 tab 05/13/23 Allergies Allergy/AdvReac Type Severity Reaction Status Date / Time amoxicillin Allergy Rash/Hives Verified 10/29/23 15:44 diphenhydramine HCl Allergy Tongue Verified 10/29/23 15:44 [From Benadryl] Swells Penicillins Allergy Rash/Hives Verified 10/29/23 15:44 Review of Systems ROS Statement: Those systems with pertinent positive or pertinent negative responses have been documented in the HPI. ROS Other: All systems not noted in ROS Statement are negative. Past Medical History Past Medical History: Asthma, GERD/Reflux, Musculoskeletal Disorder Additional Past Medical History / Comment(s): cellulitis, Covid 06/2021, 01/2022, cervical disc disease History of Any Multi-Drug Resistant Organisms: None Reported Past Surgical History: Appendectomy Additional Past Surgical History / Comment(s): vericose vein stripping, EGD Past Psychological History: Anxiety, Depression Smoking Status: Former smoker Past Alcohol Use History: None Reported Past Drug Use History: None Reported - Past Family History Family Family Medical History: Coronary Artery Disease (CAD) General Exam Limitations: no limitations General appearance: alert, in no apparent distress Head exam: Present: atraumatic, normocephalic, normal inspection Eye exam: Present: normal appearance, PERRL, EOMI. Absent: scleral icterus, conjunctival injection, periorbital swelling ENT exam: Present: normal exam, mucous membranes moist, TM's normal bilaterally Neck exam: Present: normal inspection. Absent: tenderness, meningismus, lymphadenopathy Respiratory exam: Present: normal lung sounds bilaterally. Absent: respiratory distress, wheezes, rales, rhonchi, stridor Cardiovascular Exam: Present: regular rate, normal rhythm, normal heart sounds. Absent: systolic murmur, diastolic murmur, rubs, gallop, clicks Extremities exam: Present: normal inspection Neurological exam: Present: alert, oriented X3 Psychiatric exam: Present: normal affect, normal mood Skin exam: Present: warm, dry, intact, normal color. Absent: rash Course Vital Signs 10/29/23 15:38 Temperature 99.4 F Pulse Rate 87 Respiratory 18 Rate Blood Pressure 123/82 O2 Sat by Pulse 95 Oximetry Medical Decision Making - Medical Decision Making Was pt. sent in by a medical professional or institution (, PA, CONSTRUCTION CONSULTANT, urgent care, hospital, or fci...) When possible be specific @ -No Did you speak to anyone other than the patient for history (EMS, parent, family, police, friend...)? What history was obtained from this source @ -No Did you review nursing and triage notes (agree or disagree)? Why? @ -I reviewed and agree with nursing and triage notes Were old charts reviewed (outside hosp., previous admission, EMS record, old EKG, old radiological studies, urgent care reports/EKG's, fci records)? Report findings @ -No old charts were reviewed Differential Diagnosis (chest pain, altered mental status, abdominal pain women, abdominal pain men, vaginal bleeding, weakness, fever, dyspnea, syncope, headache, dizziness, GI bleed, back pain, seizure, CVA, palpatations, mental health, musculoskeletal)? @ -Viral URI, pneumonia, bronchitis, COVID, influenza, viral pharyngitis EKG interpreted by me (3pts min.). @ -None X-rays interpreted by me (1pt min.). @ -Chest x-ray reveals no acute process CT interpreted by me (1pt min.). @ -None done U/S interpreted by me (1pt. min.). @ -None done What testing was considered but not performed or refused? (CT, X-rays, U/S, labs)? Why? @ -None What meds were considered but not given or refused? Why? @ -None Did you discuss the management of the patient with other professionals (professionals i.e. , PA, CONSTRUCTION CONSULTANT, lab, RT, psych nurse, social media manager, dramatic agent, teacher, banking officer, case management coordinator)? Give summary @ -No Was smoking cessation discussed for >3mins.? @ -No Was critical care preformed (if so, how long)? @ -No Were there social determinants of health that impacted care today? How? (Homelessness, low income, unemployed, alcoholism, drug addiction, transportation, low edu. Level, literacy, decrease access to med. care, [facility], rehab)? @ -No Was there de-escalation of care discussed even if they declined (Discuss DNR or withdrawal of care, Hospice)? DNR status @ -No What co-morbidities impacted this encounter? (DM, HTN, Smoking, COPD, CAD, Cancer, CVA, ARF, Chemo, Hep., AIDS, mental health diagnosis, sleep apnea, morbid obesity)? @ -None Was patient admitted / discharged? Hospital course, mention meds given and route, prescriptions, significant lab abnormalities, going to OR and other pertinent info. @ -Patient was discharged. Patient was seen and evaluated for sinus congestion x 2 days with cough and bodyaches. No red flag symptoms. Vital signs and physical examination are unremarkable. Chest x-ray reveals no acute process. COVID, flu, RSV is negative. Discussed diagnosis of viral URI with patient. Return parameters discussed with patient and he is agreeable to plan. Supportive care discussed. Case was discussed with my attending Dr. Tirado. Patient discharged in stable condition. Undiagnosed new problem with uncertain prognosis? @ -No Drug Therapy requiring intensive monitoring for toxicity (Heparin, Nitro, Insulin, Cardizem)? @ -No Were any procedures done? @ -No Diagnosis/symptom? @ -Viral upper respiratory infection Acute, or Chronic, or Acute on Chronic? @ -Acute Uncomplicated (without systemic symptoms) or Complicated (systemic symptoms)? @ -Uncomplicated Side effects of treatment? @ -No Exacerbation, Progression, or Severe Exacerbation? @ -No Poses a threat to life or bodily function? How? (Chest pain, [place], [place], pneumonia, PE, COPD, DKA, ARF, appy, cholecystitis, CVA, Diverticulitis, Homicidal, Suicidal, threat to staff... and all critical care pts) @ -No - Lab Data Lab Results 10/29/23 Range/Units 15:47 Influenza Type A (PCR) Not Detected (Not Detectd) Influenza Type B (PCR) Not Detected (Not Detectd) RSV (PCR) Not Detected (Not Detectd) SARS-CoV-2 (PCR) Not Detected (Not Detectd) Disposition Clinical Impression: Viral upper respiratory infection Disposition: HOME SELF-CARE Condition: Stable Instructions (If sedation given, give patient instructions): Upper Respiratory Infection (ED) Additional Instructions: Please take anti-inflammatories such as ibuprofen for pain. You can take an antihistamine such as Claritin or Zyrtec daily as well as nasal spray such as Flonase for nasal congestion. Please return to the Emergency Department if symptoms worsen or any other concerns. Is patient prescribed a controlled substance at d/c from ED?: No Referrals: Oli Metcalf DO [Primary Care Provider] - 1-2 days Time of Disposition: 17:43
--- NOTE | 2023-10-29 16:59 | XR ---
EXAMINATION TYPE: XR chest 2V DATE OF EXAM: 10/29/2023 4:42 PM CLINICAL INDICATION:Male, 38 years old with history of cough; COMPARISON: Chest radiographs from 06/30/2023 TECHNIQUE: XR chest 2V Frontal view of the chest. FINDINGS: Lungs/Pleura: There is no evidence of pleural effusion, focal consolidation, or pneumothorax. Pulmonary vascularity: Unremarkable. Heart/mediastinum: Cardiomediastinal silhouette is unremarkable. Musculoskeletal: No acute osseous pathology. Other findings: None Lines/Tubes: IMPRESSION: No acute cardiopulmonary disease/process.
[2023-10-29 17:48] VITALS: BP 129/82; PULSE 63; TEMP 98.1
== END 2023-10-29 17:53 | disposition home or self-care (01) ==
LOC: EC 15:32
DX: J06.9 Acute upper respiratory infection, unspecified (principal); Z88.0 Allergy status to penicillin; Z88.8 Allergy status to other drugs, medicaments and biological substances; Z86.16 Personal history of COVID-19; Z87.891 Personal history of nicotine dependence
CPT/HCPCS: 71046; 87636; 99285

== ENCOUNTER 2023-11-02 02:49 | Emergency (ER) | payer OTHER ==
[2023-11-02 03:03] VITALS: RESP 18; TEMP 97.9
--- NOTE | 2023-11-02 05:40 | ED ---
General Adult HPI - General Chief complaint: Recheck/Abnormal Lab/Rx Stated complaint: Throat pain Time Seen by Provider: 11/02/23 04:13 Source: patient Mode of arrival: ambulatory Limitations: no limitations - History of Present Illness Initial comments: This patient is a 38-year-old man who presents for evaluation for cough, congestion, subjective fevers. The patient was seen here and diagnosed with upper respiratory infection. He states he has not had any improvement. Denies dyspnea. Onset/Timin -: days(s) Consistency: constant Improves with: none Worsens with: none Associated Symptoms: cough Treatments Prior to Arrival: none - Related Data Home Medications Medication Instructions Recorded Confirmed Ibuprofen [Motrin Ib] 600 mg PO DAILY 08/09/22 01/07/23 Albuterol Sulfate [Ventolin HFA] 2 puff INHALATION RT-QID PRN 01/07/23 01/07/23 Aspirin 81 mg PO DAILY 01/07/23 01/07/23 Previous Rx's Medication Instructions Recorded Pantoprazole Sodium [Protonix] 40 mg PO DAILY #30 tab 05/13/23 Albuterol Inhaler [Ventolin Hfa 2 puff INHALATION Q4HR PRN #8 gm 11/02/23 Inhaler] predniSONE [Deltasone] 20 mg PO BID #8 tab 11/02/23 Allergies Allergy/AdvReac Type Severity Reaction Status Date / Time amoxicillin Allergy Rash/Hives Verified 11/02/23 03:01 diphenhydramine HCl Allergy Tongue Verified 11/02/23 03:01 [From Benadryl] Swells Penicillins Allergy Rash/Hives Verified 11/02/23 03:01 Review of Systems ROS Statement: Those systems with pertinent positive or pertinent negative responses have been documented in the HPI. ROS Other: All systems not noted in ROS Statement are negative. Constitutional: Reports: fever ENT: Reports: throat pain, congestion Respiratory: Reports: cough. Denies: dyspnea, wheezes Cardiovascular: Denies: chest pain, orthopnea, syncope Gastrointestinal: Denies: abdominal pain, vomiting, diarrhea Genitourinary: Denies: dysuria, hematuria Musculoskeletal: Denies: back pain Skin: Denies: rash Neurological: Denies: headache, weakness, numbness Past Medical History Past Medical History: Asthma, GERD/Reflux, Musculoskeletal Disorder Additional Past Medical History / Comment(s): cellulitis, Covid 06/2021, 01/2022, cervical disc disease History of Any Multi-Drug Resistant Organisms: None Reported Past Surgical History: Appendectomy Additional Past Surgical History / Comment(s): vericose vein stripping, EGD Past Psychological History: Anxiety, Depression Smoking Status: Former smoker Past Alcohol Use History: None Reported Past Drug Use History: None Reported - Past Family History Family Family Medical History: Coronary Artery Disease (CAD) General Exam Limitations: no limitations General appearance: alert, in no apparent distress Head exam: Present: atraumatic, normocephalic Eye exam: Present: normal appearance. Absent: scleral icterus, conjunctival injection ENT exam: Present: normal oropharynx, TM's normal bilaterally Neck exam: Present: normal inspection, full ROM, lymphadenopathy. Absent: tenderness, meningismus Respiratory exam: Present: normal lung sounds bilaterally. Absent: respiratory distress, wheezes, rales, rhonchi, stridor, accessory muscle use Cardiovascular Exam: Present: regular rate, normal rhythm, normal heart sounds. Absent: systolic murmur, diastolic murmur, rubs, gallop GI/Abdominal exam: Present: soft. Absent: distended, tenderness, guarding, rebound, rigid, mass Extremities exam: Present: normal inspection, normal capillary refill. Absent: pedal edema, calf tenderness Back exam: Present: normal inspection. Absent: CVA tenderness (R), CVA tenderness (L) Neurological exam: Present: alert Skin exam: Present: warm, dry, intact, normal color. Absent: rash Course Vital Signs 11/02/23 11/02/23 02:59 06:10 Temperature 97.9 F 97.9 F Pulse Rate 8 L 63 Respiratory 18 18 Rate Blood Pressure 132/83 130/93 O2 Sat by Pulse 99 99 Oximetry Medical Decision Making - Medical Decision Making Was pt. sent in by a medical professional or institution (, PA, [employer], urgent care, hospital, or halfway...) When possible be specific @ -[No] Did you speak to anyone other than the patient for history (EMS, parent, family, police, friend...)? What history was obtained from this source @ -[No] Did you review nursing and triage notes (agree or disagree)? Why? @ -[I reviewed and agree with nursing and triage notes] Were old charts reviewed (outside hosp., previous admission, EMS record, old EKG, old radiological studies, urgent care reports/EKG's, halfway records)? Report findings @ -[No old charts were reviewed] Differential Diagnosis (chest pain, altered mental status, abdominal pain women, abdominal pain men, vaginal bleeding, weakness, fever, dyspnea, syncope, headache, dizziness, GI bleed, back pain, seizure, CVA, palpatations, mental health, musculoskeletal)? @ -[Differential : Pneumonia, viral URI, endocarditis, myocarditis, pericarditis, otitis, sinusitis, peritonsillar Abscess, retropharyngeal Abscess, epiglottitis, peritonitis, appendicitis, Kia cystitis, diverticulitis, hepatitis, colitis, UTI, PID, TOA, pyelonephritis, prostatitis, epididymitis, meningitis, encephalitis, pulmonary embolism, CVA, thyroid storm, pancreatitis, adrenal crisis, cavernous sinus thrombosis, this is not meant to be an all-inclusive list. EKG interpreted by me (3pts min.). @ -[As above] X-rays interpreted by me (1pt min.). @ -[None done] CT interpreted by me (1pt min.). @ -[None done] U/S interpreted by me (1pt. min.). @ -[None done] What testing was considered but not performed or refused? (CT, X-rays, U/S, labs)? Why? @ -[None] What meds were considered but not given or refused? Why? @ -[None] Did you discuss the management of the patient with other professionals (professionals i.e. , PA, [employer], lab, RT, psych nurse, social services specialist, junior analyst, teacher, bsa officer, correctional casework specialist)? Give summary @ -[No] Was smoking cessation discussed for >3mins.? @ -[No] Was critical care preformed (if so, how long)? @ -[No] Were there social determinants of health that impacted care today? How? (Homelessness, low income, unemployed, alcoholism, drug addiction, transportation, low edu. Level, literacy, decrease access to med. care, care home, rehab)? @ -[No] Was there de-escalation of care discussed even if they declined (Discuss DNR or withdrawal of care, Hospice)? DNR status @ -[No] What co-morbidities impacted this encounter? (DM, HTN, Smoking, COPD, CAD, Cancer, CVA, ARF, Chemo, Hep., AIDS, mental health diagnosis, sleep apnea, morbid obesity)? @ -[None] Was patient admitted / discharged? Hospital course, mention meds given and route, prescriptions, significant lab abnormalities, going to OR and other pertinent info. @ -[Patient is a 38-year-old man with upper respiratory symptoms. No evidence of pneumonia or lower respiratory infection at this point. Discussed appropriate further care and follow-up as well as return parameters discussed precautions for COVID-19. Undiagnosed new problem with uncertain prognosis? @ -[No] Drug Therapy requiring intensive monitoring for toxicity (Heparin, Nitro, Insulin, Cardizem)? @ -[No] Were any procedures done? @ -[No] Diagnosis/symptom? @ -[Acute upper respiratory infection Acute, or Chronic, or Acute on Chronic? @ -[Acute Uncomplicated (without systemic symptoms) or Complicated (systemic symptoms)? @ -Uncomplicated Side effects of treatment? @ -[No] Exacerbation, Progression, or Severe Exacerbation? @ -[No] Poses a threat to life or bodily function? How? (Chest pain, [place], [place], pneumonia, PE, COPD, DKA, ARF, appy, cholecystitis, CVA, Diverticulitis, Homicidal, Suicidal, threat to staff... and all critical care pts) @ -[No] - Lab Data Lab Results 11/02/23 11/02/23 Range/Units 04:29 04:29 Influenza Type A (PCR) Not Detected (Not Detectd) Influenza Type B (PCR) Not Detected (Not Detectd) RSV (PCR) Not Detected (Not Detectd) SARS-CoV-2 (PCR) Not Detected (Not Detectd) Group A Strep (PCR) NOT DETECTED (Not Detectd) Disposition Clinical Impression: Upper respiratory infection Disposition: HOME SELF-CARE Condition: Good Instructions (If sedation given, give patient instructions): Upper Respiratory Infection (ED) Prescriptions: predniSONE [Deltasone] 20 mg PO BID #8 tab Albuterol Inhaler [Ventolin Hfa Inhaler] 2 puff INHALATION Q4HR PRN #8 gm PRN Reason: Wheezing Is patient prescribed a controlled substance at d/c from ED?: No Referrals: Dixon,Oli, DO [Primary Care Provider] - 1-2 days
[2023-11-02 06:12] VITALS: BP 130/93; PULSE 63
== END 2023-11-02 06:10 | disposition home or self-care (01) ==
LOC: EC 02:49
DX: J06.9 Acute upper respiratory infection, unspecified (principal); Z88.0 Allergy status to penicillin; Z88.8 Allergy status to other drugs, medicaments and biological substances; Z87.891 Personal history of nicotine dependence
CPT/HCPCS: 87636; 87651; 99283

== ENCOUNTER 2023-11-16 01:21 | Emergency (ER) | payer OTHER | END 2023-11-16 02:24 | disposition left against medical advice (07) | LOC: EC 01:21 | DX: Z53.21 Procedure and treatment not carried out due to patient leaving prior to being seen by health care provider (principal) | CPT/HCPCS: 99499 ==

== ENCOUNTER 2023-11-26 18:53 | Emergency (ER) | payer OTHER ==
[2023-11-26] MEDS ORDERED: PROPARACAINE 0.5% OPHTH DROPS 15 ML BTL ONE (20:39)
[2023-11-26] MEDS ORDERED: ACETAMINOPHEN TAB 325 MG TAB ONE (20:39)
[2023-11-26] MEDS ORDERED: FLUORESCEIN STRIPS 1 MG STRIP ONE (20:41)
[2023-11-26] MEDS ORDERED: CIPROFLOXACIN 0.3% OPHTH SOLN 5 ML BTL ONE (21:30)
== END 2023-11-26 21:30 | disposition home or self-care (01) ==
LOC: EC 18:53
CPT/HCPCS: 99283